=== PATIENT | female | born 1980 | race Caucasian/White ===

== ENCOUNTER 2020-07-24 13:45 | Outpatient (CLI) | payer OTHER, SELFPAY ==
--- NOTE | ~2020-07-24 | CT_ITS ---
EXAMINATION: CT abdomen pelvis w con INDICATION: Lower abdominal pain TECHNIQUE: Computed tomographic images of the abdomen and pelvis were obtained after the administrati on of 100 cc of Omnipaque 350 intravenous contrast. The dose-length product (DLP) was 701.69 mGy-cm. Automated exposure control and iterative reconstruction technique were employed. COMPARISON: None available FINDINGS: Minimal dependent atelectasis is present in the lung bases. The heart size is normal. The l iver is diffusely low in attenuation when compared with the spleen, consistent with hepatic steatosis . The spleen, pancreas, gallbladder, and adrenal glands are normal. There is mild enlargement of the common bile duct which measures up to 9 mm. The left kidney is unremarkable. There is an 7 mm hyperat tenuating lesion of the right mid kidney. No pathologically enlarged abdominal or pelvic lymph nodes are identified. There is no free intraperitoneal gas or evidence of bowel obstruction. The appendix i s normal. IMPRESSION: 1. No CT correlate for the patient's symptoms. 2. Mild enlargement of the common bile duct of unclear significance. Recommend correlation with liver function tests and consider MRCP. 3. Indeterminate right kidney lesion measuring 7 mm. This could be simultaneously evaluated at the ti me of MRCP. If MRCP is deemed unnecessary, follow-up MRI without and with contrast in 6-12 months is recommended. Reviewed, dictated and finalized at location A. B CARE ASSISTANT IMPRESSION: 1. No CT correlate for the patient's symptoms. 2. Mild enlargement of the common bile duct of unclear significance. Recommend correlation with liver function tests and consider MRCP. 3. Indeterminate right kidney lesion measuring 7 mm. This could be simultaneous ly evaluated at the time of MRCP. If MRCP is deemed unnecessary, follow-up MRI without and with contrast in 6-12 months is recommended.
== END 2020-07-24 13:46 | disposition home or self-care (01) ==
PROVIDERS: PCP Nurse Practitioner; Visit Provider Nurse Practitioner
DX: R10.30 Lower abdominal pain, unspecified (principal)
CPT/HCPCS: 74177; Q9967

== ENCOUNTER 2020-08-11 08:13 | Outpatient (CLI) | payer OTHER, SELFPAY ==
--- NOTE | ~2020-08-11 | MR_ITS ---
EXAMINATION: MR MRCP wo/w con/w 3D wo ind DATE: 08/11/2020 10:01 INDICATION: Common bile duct dilation. Right renal lesion. Left-sided abdominal pain, nausea and diar anson. TECHNIQUE: Magnetic resonance imaging (MRI) of the abdomen was performed without and with 17 mL Multi paulina intravenous contrast. Sequences included coronal T2-weighted SS-FSE, coronal T2-weighted FS SS- FSE, coronal T2-weighted FS FIESTA, axial T2-weighted FS FIESTA, axial T2-weighted FIESTA, sagittal T 2-weighted SS-FSE, axial T1-weighted dual-echo FSPGR, axial T2-weighted SS-FSE, axial T1-weighted LAV A, axial T2-weighted STIR FSE. Thick-slab T2-weighted FRFSE-XL images were obtained for magnetic reso nance cholangiopancreatography (MRCP). Rotating maximum intensity projection 3-D reconstructions of t he volumetric data were created by the technologist. Postcontrast sequences included a time course of axial T1-weighted LAVA. COMPARISON: CT dated 07/24/2020 FINDINGS: ABDOMEN MRI: Heart size is normal. No pericardial or pleural effusion. Diffuse hepatic steatosis. Gal lbladder, spleen, pancreas, bilateral adrenal glands and left kidney are normal. Signal intensity gra dient in the dependent aspect of the gallbladder likely representing dependently layering sludge but no discrete low signal intensity gallstones identified. 7 mm T2 hypointense, T1 hyperintense nonenhan cing proteinaceous/hemorrhagic cyst at the lower pole of the right kidney. Simple appearing T2 hyperi ntense nonenhancing 5 mm cyst at the interpolar region of the right kidney. Visualized portion of the bowels are normal. No obstruction. No pathologically enlarged abdominal lymphadenopathy. Mild lumbar spondylosis. Normal bone marrow signal throughout. ABDOMEN MRCP: Normal intrahepatic biliary tree with no ductal dilation. The common bile duct is mildly dilated to 7 mm in maximal diameter which tapers distally without evident obstructing stone or mass. The main turcios creatic duct is normal. IMPRESSION: 1. Nonspecific mild dilation of the common bile duct to 7 mm without intrahepatic biliary ductal dila tion or evident obstructing stone or mass. 2. Right renal lesion of concern corresponds to a nonenhancing proteinaceous/hemorrhagic cyst. Reviewed, dictated and finalized at location B. RITY DIRECTOR IMPRESSION: 1. Nonspecific mild dilation of the common bile duct to 7 mm without intrahepat ic biliary ductal dilation or evident obstructing stone or mass. 2. Right renal lesion of concern corresponds to a nonenhancing proteinaceous/he morrhagic cyst.
[2020-08-11 09:13] LABS: Estimated Glomerular Filt Rate > 60
== END 2020-08-11 08:14 | disposition home or self-care (01) ==
PROVIDERS: PCP Nurse Practitioner
DX: K83.8 Other specified diseases of biliary tract (principal); N28.9 Disorder of kidney and ureter, unspecified; N28.1 Cyst of kidney, acquired; M47.816 Spondylosis without myelopathy or radiculopathy, lumbar region
CPT/HCPCS: 74183; 76376; A9577

== ENCOUNTER 2021-03-11 11:26 | Emergency (ER) | payer OTHER, SELFPAY ==
[2021-03-11 11:38] VITALS: BP 145/87; PULSE 96; RESP 16; TEMP 36.9; O2SAT 100
--- NOTE | 2021-03-11 11:50 | ED.URI ---
HPI - URI/Sore Throat General Chief Complaint: Upper Respiratory Infection Stated Complaint: SORE THROAT/COUGH/HEADACHE/BODY ACHES Time Seen by Provider: 03/11/21 11:51 Source: patient and RN notes reviewed History of Present Illness HPI Narrative: Patient is a 40-year-old female who presents the urgent care with complaints of sore throat, cough, body aches and headache. Patient states symptoms started on Tuesday after she received her Covid vaccine on Tuesday. Patient received the first Materna vaccine. However she did have a positive contact on Tuesday and was just notified yesterday. Patient has been using Excedrin and Profen for her symptoms. States that her kids are also symptomatic. No one has been tested for Covid. No other acute complaints. No acute distress noted. Patient aware of the plan of care. Some parts of this dictation were generated by voice recognition software and may contain typographical and/or grammatical inaccuracies. Related Data Home Medications Medication Instructions Recorded Confirmed amitriptyline 03/11/21 brexpiprazole [Rexulti] mg 03/11/21 cetirizine mg 03/11/21 clonazepam 03/11/21 clonidine HCl 03/11/21 dicyclomine mg 03/11/21 duloxetine mg PO 03/11/21 gabapentin 03/11/21 pantoprazole PO 03/11/21 propranolol 03/11/21 ropinirole mg 03/11/21 topiramate 03/11/21 Allergies Allergy/AdvReac Type Severity Reaction Status Date / Time codeine Allergy Mild Hives / Verified 04/04/19 13:08 Red Face acetaminophen AdvReac Mild Other Unverified 04/04/19 13:08 ZOLPIDEM TARTRATE Allergy Mild Other Uncoded 04/04/19 13:08 Review of Systems Review of Systems: CONSTITUTIONAL: Reports a fever EYES: Denies visual changes, redness, or discharge. ENT: Reports of sore throat and congestion CARDIOVASCULAR: Denies chest pain, palpitations, or edema. RESPIRATORY: Reports of cough without dyspnea GASTROINTESTINAL: Denies abdominal pain, nausea, vomiting, or diarrhea. GENITOURINARY: Denies dysuria or hematuria. SKIN: Denies rash or itching. MUSCULOSKELETAL: Denies back pain, joint pain. Reports of body aches NEUROLOGIC: Denies headache, numbness, or weakness. All other systems reviewed are negative, except as documented in HPI. PMFSH Comments At the time of my signature, I reviewed and agree with the nursing past medical, surgical, social, and family history. There is no relevant family history pertinent to the patient complaint. Exam Narrative: GENERAL: This is a well-nourished, well-developed patient, appears fatigued HEAD: normocephalic, atraumatic. EYES: PERRL. Sclera clear/white. Vision is grossly intact. Moderate bilateral conjunctiva EARS: External ears normal, auditory canals clear and without drainage, TMs normal without perforation. Hearing grossly intact. NOSE: External nose normal with no obvious nasal discharge, nares without redness, no rhinorrhea. THROAT: Mucous membranes moist, posterior pharynx clear. Moderate postnasal drainage NECK: Neck supple CARDIOVASCULAR: Regular rate and rhythm without murmurs, gallops, or rubs. RESPIRATORY: Clear to auscultation. Breath sounds equal bilaterally. No wheezes, rales, or rhonchi. SKIN: warm, intact with no suspicious lesions or rash, good texture and turgor. NEURO: awake, alert, and oriented to person, place and time. There were no obvious focal neurologic abnormalities. EXTREMITIES: No clubbing, cyanosis, or edema. Course Vital Signs Vital signs: Vital Signs Temperature 98.5 F 03/11/21 11:38 Pulse Rate 96 03/11/21 11:38 Respiratory Rate 16 03/11/21 11:38 Blood Pressure 145/87 H 03/11/21 11:38 Pulse Oximetry 100 03/11/21 11:38 Temperature 98.5 F 03/11/21 11:38 Pulse Rate 96 03/11/21 11:38 Respiratory Rate 16 03/11/21 11:38 Blood Pressure 145/87 H 03/11/21 11:38 Pulse Oximetry 100 03/11/21 11:38 Reviewed-patient is informed that they may have pre-hypertension or hypertension based on
== END 2021-03-11 12:05 | disposition home or self-care (01) ==
PROVIDERS: Emergency Provider Nurse Practitioner Family
DX: Z20.822 Contact with and (suspected) exposure to COVID-19 (principal)
CPT/HCPCS: 99211; G0463

== ENCOUNTER → 2021-03-12 02:36 | Outpatient (CLI) | payer OTHER, SELFPAY ==
[2021-03-12 16:55] LABS: SARS-CoV-2 RNA PCR Positive
== END ==
PROVIDERS: Visit Provider Nurse Practitioner Family
DX: U07.1 COVID-19 (principal)
CPT/HCPCS: C9803; U0003; U0005

== ENCOUNTER 2023-08-15 13:21 | Emergency (ER) | payer OTHER, SELFPAY ==
--- NOTE | ~2023-08-15 | XR_ITS ---
EXAMINATION: XR chest 2V DATE: 08/15/2023 13:46 INDICATION: Chest pain TECHNIQUE: PA and lateral views of the chest were obtained. COMPARISON: None FINDINGS: The lungs are clear with no focal airspace opacities, pulmonary edema, pleural effusion or pneumothor ax. The cardiomediastinal silhouette is normal. Visualized bones and soft tissues are unremarkable. IMPRESSION: 1. Normal chest radiograph. Reviewed, dictated and finalized at location A. Y LAUNDERING INVESTIGATOR IMPRESSION: 1. Normal chest radiograph.
--- NOTE | 2023-08-15 13:22 | ECG_ITS ---
Measurements Intervals Blunt Rate: 106 P: 84 NC: 130 QRS: 81 QRSD: 90 T: 60 QT: 316 QTc: 420 Interpretive Statements SINUS TACHYCARDIA POSSIBLE RIGHT ATRIAL ENLARGEMENT POSSIBLE LEFT ATRIAL ENLARGEMENT DELAYED PRECORDIAL R/S TRANSITION BORDERLINE ST ABNORMALITY- INFERIOR LEADS BORDERLINE ECG NO PREVIOUS ECG AVAILABLE FOR COMPARISON Electronically Signed On 08-15-2023 14:19:27 SOFTWARE ENGINEERING ASSOCIATE MANAGER by Josue Grace D.O.
[2023-08-15 13:27] VITALS: BP 152/92; PULSE 115; RESP 20; TEMP 36.2; O2SAT 100
[2023-08-15 13:49] LABS: Basophils Absolute Auto 0.1 K/mm3 (0.0-0.1); Basophils Percent Auto 1.1 % (0.2-1.2); Eosinophils Percent Auto 0.4 % (0-4.4); Hematocrit 47.3 % (37.0-47.0); Hemoglobin 15.5 g/dL (12.0-15.0); Immature Granulocyte Absolute 0.03 K/mm3 (0.00-0.031); Immature Granulocyte Percent A 0.5 % (0-0.5); Lymphocytes Percent Auto 17.9 % (18.3-44.2); Mean Corpuscular HGB Conc 32.8 g/dl (32-36); Mean Corpuscular Hemoglobin 28.8 pg (26-34); Mean Corpuscular Volume 87.9 fl (80-100); Mean Platelet Volume 10.2 fl (7.4-10.4); Monocytes Absolute Auto 0.7 K/mm3 (0.1-0.6); Monocytes Percent Auto 11.8 % (2.6-8.5); Neutrophils Absolute Auto 3.8 K/mm3 (1.3-6.7); Neutrophils Percent Auto 68.3 % (45.5-73.1); Platelet Count Result 237 k/mm3 (150-375); Red Blood Count 5.38 M/mm3 (4.2-5.4); Red Cell Distribution Width 12.7 % (11.5-14.5); White Blood Count 5.6 K/mm3 (4.5-10.0)
[2023-08-15 13:53] LABS: Alanine Aminotransferase 24 U/L (6-35); Albumin Level 4.7 g/dL (3.5-5.1); Alkaline Phosphatase 53 U/L (38-126); Anion Gap 10 mmol/L (8-16); Aspartate Amino Transferase 28 U/L (14-36); Bilirubin,Total 0.4 mg/dL (0.2-1.3); Blood Urea Nitrogen 8 mg/dL (7-17); Calcium 9.7 mg/dL (8.4-10.2); Carbon Dioxide 22 mmol/L (22-30); Chloride 104 mmol/L (98-107); Estimated CRCL calculation 101 ml/min; Estimated Glomerular Filt Rate > 60; Glucose 107 mg/dL (65-110); Lipase 76 U/L (23-300); Sodium 136 mmol/L (137-145)
[2023-08-15 13:57] LABS: INR 0.9; Prothrombin Time 12.9 Seconds (11.1-14.7)
[2023-08-15 13:58] LABS: Partial Thromboplastin Time 28.4 SECONDS (22.3-36.8)
[2023-08-15 14:04] LABS: Troponin I < 0.012 ng/mL (0.000-0.034)
--- NOTE | 2023-08-15 15:13 | ED.GENADULT ---
HPI - General Adult General Chief complaint: Chest Pain <Reema Che October CRUSHER SCREEN REPAIRER - Last Filed: 08/15/23 15:16> Stated complaint: chest pain <Reema Che October CRUSHER SCREEN REPAIRER - Last Filed: 08/15/23 15:16> Time Seen by Provider: 08/15/23 15:13 <Reema Che October CRUSHER SCREEN REPAIRER - Last Filed: 08/15/23 15:16> Focused HPI: 42 y/o female who presents with left sided chest pain that started last night at around 1800 while laying down. Pain has been constant ever since, nothing has made her pain better. Also reports of feeling SOB and dizzy. GENERAL: Well-appearing, well-nourished, and in no acute distress. HEAD: Normocephalic, atraumatic. CHEST: Clear to auscultation. ?No respiratory distress. HEART: Regular rate and rhythm.? NEURO: ?Alert and oriented x3. Patient screened in triage and initial orders placed.? ?Additional care and disposition to be based upon?diagnostic testing and treatment. <Reema Che October, - Last Filed: 08/15/23 15:16> Source: patient <Diego Yepez MD - Last Filed: 08/15/23 16:39> History of Present Illness HPI narrative: Patient is a 42-year-old female who presents ER with chest pain. Ongoing since earlier this morning. Aching and central and left-sided. No radiation. No fevers or chills or sweats. Recently was exposed the fluid had been coughing throughout the week. No hemoptysis. No shortness of breath with walking. No history of heart disease. Denies alleviating factors. <Diego Yepez MD - Last Filed: 08/15/23 16:39> Related Data Home medications: Home Medications Medication Instructions Recorded Confirmed atomoxetine 60 mg capsule 60 mg PO QAM 04/19/23 (Strattera) lumateperone 42 mg capsule 42 mg PO DAILY 04/19/23 (Caplyta) ropinirole 1 mg tablet 1 mg PO QHS 04/19/23 <Reema Che October, CRUSHER SCREEN REPAIRER - Last Filed: 08/15/23 15:16> Allergies/adverse reactions: Allergies Allergy/AdvReac Type Severity Reaction Status Date / Time codeine Allergy Mild Hives / Verified 08/15/23 13:30 Red Face acetaminophen AdvReac Mild Other Verified 08/15/23 13:30 ZOLPIDEM TARTRATE Allergy Mild Other Uncoded 03/18/23 08:41 <Reema Maravilla, CRUSHER SCREEN REPAIRER - Last Filed: 08/15/23 15:16> Review of Systems Review of Systems: All systems reviewed & are unremarkable except as noted in HPI and below <Diego Yepez MD - Last Filed: 08/15/23 16:39> Constitutional: Constitutional: Reports no additional constitutional complaints <Diego Yepez MD - Last Filed: 08/15/23 16:39> ENT: Reports system reviewed and no additional complaints, except as documented <Diego Yepez MD - Last Filed: 08/15/23 16:39> Cardiovascular: Cardiovascular: Reports chest pain, Denies rapid heart rate, Denies radiating jaw, neck or arm pain and Denies slow heart rate <Diego Yepez MD - Last Filed: 08/15/23 16:39> Respiratory: Respiratory: Reports no additional respiratory complaints <Diego Yepez MD - Last Filed: 08/15/23 16:39> Gastrointestinal: Gastrointestinal: Reports no additional gastrointestinal complaints <Diego Yepez MD - Last Filed: 08/15/23 16:39> Musculoskeletal: Musculoskeletal: Reports no additional musculoskeletal complaints <Diego Yepez MD - Last Filed: 08/15/23 16:39> [facility] Past Medical History Medical History: Medical History (Updated 08/15/23 @ 16:35 by Diego Yepze MD) Anxiety GERD (gastroesophageal reflux disease) Hepatic steatosis IBS (irritable bowel syndrome) Lumbar degenerative disc disease <Reema Che October, CRUSHER SCREEN REPAIRER - Last Filed: 08/15/23 15:16> Family History Family History: Family History Father Alcoholism Asthma Mother Depression Thyroid disorder Sibling Asthma <Reema Che October, CRUSHER SCREEN REPAIRER - Last Filed: 08/15/23 15:16> Social History Social History: Social History Smoking status: Former smoker Second hand tobacco smoke
[2023-08-15 15:41] LABS: D Dimer < 0.27 ug/mL (<0.48)
[2023-08-15 15:46] VITALS: PULSE 81; O2SAT 98
[2023-08-15 16:02] VITALS: BP 131/89; PULSE 80; RESP 21; O2SAT 99
[2023-08-15 16:03] VITALS: BP 136/80; PULSE 76; RESP 14; O2SAT 99
[2023-08-15] MEDS: KETOROLAC 30 MG/ML VIAL (*BKC) IM (16:23)
[2023-08-15 16:39] LABS: Troponin I < 0.012 ng/mL (0.000-0.034)
[2023-08-15 16:46] VITALS: BP 136/80; PULSE 92; RESP 18; TEMP 36.7; O2SAT 99
== END 2023-08-15 16:47 | disposition home or self-care (01) ==
PROVIDERS: Nurse Practitioner Family; Emergency Provider Emergency Medicine; PCP Family Medicine
DX: R09.1 Pleurisy (principal); K21.9 Gastro-esophageal reflux disease without esophagitis; K58.9 Irritable bowel syndrome, unspecified; F41.9 Anxiety disorder, unspecified; Z87.891 Personal history of nicotine dependence; R94.31 Abnormal electrocardiogram [ECG] [EKG]; R00.0 Tachycardia, unspecified
CPT/HCPCS: 36415; 71046; 80053; 83690; 84484; 85025; 85380; 85610; 85730; 93005; 96372; 99284; J1885

== ENCOUNTER 2023-09-19 16:22 | Outpatient (CLI) | payer OTHER, SELFPAY ==
[2023-09-19 16:36] LABS: Basophils Absolute Auto 0.1 K/mm3 (0.0-0.1); Basophils Percent Auto 0.9 % (0.2-1.2); Eosinophils Absolute Auto 0.1 K/mm3 (0-0.3); Eosinophils Percent Auto 1.1 % (0-4.4); Hematocrit 42.2 % (37.0-47.0); Immature Granulocyte Absolute 0.05 K/mm3 (0.00-0.031); Immature Granulocyte Percent A 0.5 % (0-0.5); Lymphocytes Absolute Auto 1.63 K/mm3 (0.9-3.2); Lymphocytes Percent Auto 17.3 % (18.3-44.2); Mean Corpuscular HGB Conc 33.2 g/dl (32-36); Mean Corpuscular Hemoglobin 29.2 pg (26-34); Mean Corpuscular Volume 87.9 fl (80-100); Mean Platelet Volume 9.4 fl (7.4-10.4); Monocytes Absolute Auto 0.5 K/mm3 (0.1-0.6); Monocytes Percent Auto 5.2 % (2.6-8.5); Neutrophils Absolute Auto 7.1 K/mm3 (1.3-6.7); Platelet Count Result 257 k/mm3 (150-375); Red Cell Distribution Width 12.6 % (11.5-14.5); White Blood Count 9.4 K/mm3 (4.5-10.0)
== END 2023-09-19 16:23 | disposition home or self-care (01) ==
LOC: ANHLAB 16:23
PROVIDERS: PCP Family Medicine; Visit Provider Obstetrics & Gynecology
DX: N93.9 Abnormal uterine and vaginal bleeding, unspecified (principal)
CPT/HCPCS: 36415; 85025

== ENCOUNTER 2023-10-04 10:12 | Outpatient (CLI) | payer OTHER, SELFPAY ==
--- NOTE | 2023-10-11 10:14 | WPDHOLTEREM ---
Holter/Event Monitor Holter/Event Monitor Date of procedure: 10/04/23 Holter/Event Procedure: 48 Hr Holter Monitor Indications: Palpitations Conclusion: 1. 48 hour holter monitor on 10/04/23. 2. Underlying rhythm is sinus rhythm. HR range 49-141 bpm; average HR 83 bpm. HR at 49 bpm was at 04:24. HR at 141 bpm was at 08:06. 3. There are 92 premature supraventricular complexes and 1 supraventricular couplet. No supraventricular tachycardia. 4. There are 23 premature ventricular complexes. No ventricular tachycardia. 5. No sinoatrial or atrioventricular blocks. No significant pauses greater than 2 seconds. 6. No symptoms available for correlation.
== END 2023-10-04 10:13 | disposition home or self-care (01) ==
LOC: ANHCARD 10:13
PROVIDERS: PCP Family Medicine; Visit Provider Nurse Practitioner Family
DX: I27.20 Pulmonary hypertension, unspecified (principal)
CPT/HCPCS: 93225; 93226

== ENCOUNTER 2023-11-08 11:13 | Emergency (ER) | payer OTHER, SELFPAY ==
--- NOTE | ~2023-11-08 | CT_ITS ---
EXAMINATION: CT abdomen pelvis w con DATE: 11/08/2023 13:48 INDICATION: Gastrointestinal hemorrhage. TECHNIQUE: Computed tomography (CT) of the abdomen and pelvis was performed with 100 mL Omnipaque 350 intravenous contrast. Automated exposure control and iterative reconstruction technique were employe d. The dose-length product was 511.15 mGy-cm. COMPARISON: CT abdomen and pelvis 07/24/2020 FINDINGS: The visualized portions of the lung bases demonstrate mild atelectasis. No pleural effusion . The heart size is normal. No pericardial effusion. The liver, gallbladder, spleen, pancreas, and ad renal glands are normal. The common duct measures 9 mm in diameter, stable from 07/24/2020 and likely not clinically significant given the normal liver function tests. There are cysts in the kidneys dilma uring up to 9 mm on the right. There are no dilated loops of bowel. The appendix is normal. There are no pathologically enlarged lymph nodes. There is no free intraperitoneal fluid. There is mild thorac ic and lumbar spondylosis. IMPRESSION: 1. No etiology for gastrointestinal hemorrhage. Reviewed, dictated and finalized at location A.
[2023-11-08 11:19] VITALS: BP 128/66; PULSE 68; RESP 20; TEMP 36.6; O2SAT 99
--- NOTE | 2023-11-08 12:10 | ED.GIBLEED ---
HPI - GI Bleed General Chief complaint: GI Bleed Stated complaint: bloody stools Time Seen by Provider: 11/08/23 11:58 History of Present Illness HPI Narrative: Patient is a 43-year-old female with history of migraines, IBS, PACs, generalized anxiety disorder, depression, ADHD here today with bright red blood per rectum and abdominal pain. Patient states that about 4 days ago she had a severe migraine with multiple episodes of vomiting overnight. The next morning she woke up and for the last 3 days she has been having bright red blood per rectum, she describes a large amount with clots passing. She does note that she had a prior history of a hemorrhoidectomy about 2-3 years ago at [facility], she had internal and external hemorrhoids at that time. She notes some associated abdominal pain which is in her lower abdomen, cramping in nature and she does have some pain perianally with defecation. She denies feeling short of breath, lightheaded, chest pain, palpitations. No blood thinner use. Her last colonoscopy was in 2019, is due for another scope soon due to family history of colon cancer. She denies fever or chills. She denies any recent travel, denies any recent antibiotic use. She additionally notes for the last 6 months she has been struggling with a rash on her legs. She notes that it 1st started on her left pardo, she did discuss that with her primary care doctor who she states did ?nothing about it and refused to touch it ?. She has been using topical steroids, topical antifungals, with minimal relief of symptoms. She notes she initially had a solitary lesion but now has several lesions throughout her legs. She describes them as pruritic in nature and typically they have flakes on the top of them however she scrubbed them this morning with a skin scribe and currently does not have any skin flaking. Related Data Home Medications Medication Instructions Recorded Confirmed atomoxetine 60 mg capsule 60 mg PO QAM 04/19/23 09/19/23 (Strattera) lumateperone 42 mg capsule 42 mg PO DAILY 04/19/23 09/19/23 (Caplyta) amlodipine 5 mg tablet 5 mg PO DAILY 09/19/23 09/19/23 indomethacin 50 mg capsule 100 mg PO QHS 09/19/23 09/19/23 oxcarbazepine 150 mg tablet 150 mg PO DAILY 09/19/23 09/19/23 (Trileptal) oxcarbazepine 300 mg tablet 300 mg PO BID 09/19/23 09/19/23 (Trileptal) oxybutynin chloride 5 mg tablet 5 mg PO DAILY 09/19/23 09/19/23 pramipexole 0.25 mg tablet 0.25 mg PO QHS 09/19/23 09/19/23 Allergies Allergy/AdvReac Type Severity Reaction Status Date / Time codeine Allergy Mild Hives / Verified 09/19/23 15:40 Red Face acetaminophen AdvReac Mild Other Verified 09/19/23 15:40 ZOLPIDEM TARTRATE Allergy Mild Other Uncoded 09/19/23 15:40 Review of Systems Review of Systems: All systems reviewed & are unremarkable except as noted in HPI and below PMFSH Past Medical History Medical History (Updated 11/08/23 @ 16:50 by Carmen Joiner MD) Anxiety Depression GERD (gastroesophageal reflux disease) Hepatic steatosis IBS (irritable bowel syndrome) Lumbar degenerative disc disease Schizophrenia Screening mammogram, encounter for Surgical History Surgical History Delivery by section x 4 H/O hemorrhoidectomy (10/08/20) excision of thrombosed external hemorrhoid History of hysteroscopy (05/22/20) Hscope D&C, Endometrial Ablation / Laparoscopic Tubal Ligation via electrocautery; Menometrorrhagia, Dysmenorrhea, Undesired fertility S/P nerve repair nerve repair on right hand age 18 Family History Family History Father Alcoholism Asthma Mother Depression Thyroid disorder Carcinoma of colon Breast cancer H/O ovarian cancer Sibling Asthma Social History Social History (Updated 09/19/23 @ 15:45 by TELLY Arguelles) Smoking status: Former smoker Second hand tobacco smoke e
[2023-11-08 13:30] VITALS: BP 133/75; PULSE 62; RESP 16; O2SAT 99
[2023-11-08] MEDS: PANTOPRAZOLE SODIUM IV 40 MG VIAL IV PUSH (13:37)
[2023-11-08 13:40] LABS: Basophils Absolute Auto 0.1 K/mm3 (0.0-0.1); Basophils Percent Auto 0.9 % (0.2-1.2); Eosinophils Absolute Auto 0.3 K/mm3 (0-0.3); Eosinophils Percent Auto 2.6 % (0-4.4); Hematocrit 42.2 % (37.0-47.0); Hemoglobin 14.3 g/dL (12.0-15.0); Immature Granulocyte Absolute 0.05 K/mm3 (0.00-0.031); Immature Granulocyte Percent A 0.5 % (0-0.5); Lymphocytes Absolute Auto 2.24 K/mm3 (0.9-3.2); Lymphocytes Percent Auto 22.2 % (18.3-44.2); Mean Corpuscular HGB Conc 33.9 g/dl (32-36); Mean Corpuscular Hemoglobin 29.7 pg (26-34); Mean Corpuscular Volume 87.6 fl (80-100); Mean Platelet Volume 9.8 fl (7.4-10.4); Monocytes Absolute Auto 0.7 K/mm3 (0.1-0.6); Monocytes Percent Auto 6.4 % (2.6-8.5); Neutrophils Absolute Auto 6.8 K/mm3 (1.3-6.7); Neutrophils Percent Auto 67.4 % (45.5-73.1); Platelet Count Result 265 k/mm3 (150-375); Red Blood Count 4.82 M/mm3 (4.2-5.4); Red Cell Distribution Width 12.3 % (11.5-14.5); White Blood Count 10.1 K/mm3 (4.5-10.0)
[2023-11-08 13:43] LABS: Estimated CRCL calculation 102 ml/min; Estimated Glomerular Filt Rate > 60
[2023-11-08 13:50] LABS: Alanine Aminotransferase 19 U/L (6-35); Albumin Level 4.4 g/dL (3.5-5.1); Alkaline Phosphatase 44 U/L (38-126); Anion Gap 4 mmol/L (4-12); Aspartate Amino Transferase 22 U/L (14-36); Bilirubin,Total 0.4 mg/dL (0.2-1.3); Blood Urea Nitrogen 8 mg/dL (7-17); Calcium 9.5 mg/dL (8.4-10.2); Carbon Dioxide 28 mmol/L (22-30); Chloride 104 mmol/L (98-107); Estimated CRCL calculation 102 ml/min; Estimated Glomerular Filt Rate > 60; Glucose 108 mg/dL (65-110); Lactic Acid Reflex 1.3 mmol/L (0.7-2.0); Lipase 139 U/L (23-300); Potassium 3.6 mmol/L (3.4-5.0); Sodium 136 mmol/L (137-145)
[2023-11-08 13:52] LABS: INR 0.9
[2023-11-08 13:53] LABS: Partial Thromboplastin Time 28.1 Seconds (22.3-36.8)
[2023-11-08 14:00] VITALS: BP 131/69; PULSE 67; RESP 18; O2SAT 99
[2023-11-08 14:30] VITALS: BP 141/78; PULSE 67; RESP 17; O2SAT 98
[2023-11-08 14:59] VITALS: BP 132/74; PULSE 66; RESP 16; O2SAT 99
[2023-11-08 15:25] LABS: Pregnancy On Board Control Positive; Urine Pregnancy Test Negative
[2023-11-08 15:35] LABS: Appearance Urine Clear (Clear); Bacteria Urine None Seen /hpf; Bilirubin Urine Negative (Negative); Blood Urine Trace (Negative); Color Urine Yellow (Yellow); Glucose Urine UA Negative (Negative); Ketones Urine Negative (Negative); Leukocyte Esterase Ur Negative LEU/UL (Negative); Need Manual Microscopic Reviewed; Nitrate Urine Negative (Negative); Non Pathogenic Casts 0-2; Protein Urine Negative (Negative); RBC Urine 0-2 /hpf (0-2); Squamous Epithelial Cell Urine None Seen /hpf (Few); Urobilinogen Urine 0.2 mg/dL (<2.0); WBC Urine 0-5 /hpf (0-3); pH Urine 7.5 (5.0-9.0)
[2023-11-08 15:36] LABS: Add Urine Microscopic? YES
== END 2023-11-08 17:32 | disposition home or self-care (01) ==
PROVIDERS: Emergency Provider Student in an Organized Health Care Education/Training Program; PCP Family Medicine
DX: K60.0 Acute anal fissure (principal); K62.5 Hemorrhage of anus and rectum; K58.9 Irritable bowel syndrome, unspecified; K21.9 Gastro-esophageal reflux disease without esophagitis; F41.9 Anxiety disorder, unspecified; F32.A Depression, unspecified; F20.9 Schizophrenia, unspecified; Z87.891 Personal history of nicotine dependence; Z79.899 Other long term (current) drug therapy
CPT/HCPCS: 36415; 74177; 80053; 81001; 81025; 83605; 83690; 85025; 85610; 85730; 86850; 86900; 86901; 96374; 99284; C9113; Q9967

== ENCOUNTER 2023-12-12 10:01 | Outpatient (CLI) | payer OTHER, SELFPAY ==
[2023-12-12 10:42] LABS: Erythrocyte Sedimentation Rate 12 mm/hr (0-20)
[2023-12-12 14:01] LABS: Rapid Plasma Reagin Non-Reactive (NonReactive)
== END 2023-12-12 10:02 | disposition home or self-care (01) ==
LOC: ANHLAB 10:02
PROVIDERS: PCP Family Medicine; Visit Provider Student in an Organized Health Care Education/Training Program
DX: R21 Rash and other nonspecific skin eruption (principal)
CPT/HCPCS: 36415; 85652; 86592

== ENCOUNTER 2024-01-26 15:34 | Outpatient (CLI) | payer OTHER, SELFPAY ==
--- NOTE | ~2024-01-26 | XR_ITS ---
XR abdomen/kub 1V Ordering provider: Doreen Diehl PA-C History: . R10.9 - Unspecified abdominal pain . Comparison: None. FINDINGS: BOWEL: Nonobstructive bowel gas pattern. ORGANOMEGALY: None. SIGNIFICANT PATHOLOGIC CALCIFICATIONS: None. OTHER: No free air is seen under the diaphragm. IMPRESSION: NO ACUTE ABDOMINAL FINDINGS. Reviewed, dictated and finalized at location A.
== END 2024-01-26 15:35 | disposition home or self-care (01) ==
PROVIDERS: PCP Family Medicine; Visit Provider Physician Assistant Medical
DX: R10.9 Unspecified abdominal pain (principal); R31.9 Hematuria, unspecified
CPT/HCPCS: 74018

== ENCOUNTER 2024-02-06 08:02 | Day surgery (SDC) | payer OTHER, SELFPAY ==
[2023-12-14 12:43] VITALS: BMI 27.6
[2024-01-20 13:01] VITALS: BMI 27.6
--- NOTE | 2024-02-05 21:02 | PM.HPGS ---
History of Present Illness History of Present Illness Consent: Risks, benefits, and alternatives have been discussed and questions answered. Patient agrees to proceed with procedure. Chief complaint: Neoplasm Screening Narrative: Blanquita Chaney is a 43 year old female who is referred for colon cancer screening.Her mother Was diagnosed with colon cancer in her 40s. Review of Systems Review of Systems: All systems reviewed & are unremarkable except as noted in HPI and below PMFSH Past Medical History Medical History Anxiety Depression GERD (gastroesophageal reflux disease) Hepatic steatosis Hypertension IBS (irritable bowel syndrome) Lumbar degenerative disc disease Schizophrenia Screening mammogram, encounter for Surgical History Surgical History Delivery by section x 4 H/O hemorrhoidectomy (10/08/20) excision of thrombosed external hemorrhoid History of hysteroscopy (05/22/20) Hscope D&C, Endometrial Ablation / Laparoscopic Tubal Ligation via electrocautery; Menometrorrhagia, Dysmenorrhea, Undesired fertility S/P nerve repair nerve repair on right hand age 18 Family History Family History Father Alcoholism Asthma Mother Depression Thyroid disorder Carcinoma of colon Breast cancer H/O ovarian cancer Sibling Asthma Social History Social History Smoking packs per day: 2 Smoking cigarettes per day: 40.0 Years smoked: 14 Smoking pack-years: 28.00 Smoking status: Former smoker Tobacco type: cigarettes Second hand tobacco smoke exposure: No Smoking end date: 06/13/15 Alcohol intake: current Alcohol use details: 3 per month Substance use: current Substance use type: marijuana Other substance usage details: 2X daily Do You Feel Safe in your Home?: Yes Lack of Transportation: No Lack of Food: Never True Current Housing: I Have Housing Concerned About Future Housing: No Difficulty Paying Gas/Electric Bills: No Difficulty Paying for Meds: No Currently Unemployed: No Difficulty w/ Childcare or Family Care: No Living arrangements: with family Additional living arrangements comments: Occupation/Education: unemployed Gender identity (if verbalized by the patient): Female Sexual Orientation (if Verbalized by the Patient): Straight or Heterosexual Spiritual care concerns: No Meds Home Medications and Allergies Home Medications Medication Instructions Recorded Confirmed Type lumateperone 42 mg capsule 42 mg PO DAILY 04/19/23 02/06/24 History (Caplyta) indomethacin 50 mg capsule 100 mg PO QHS PRN other 09/19/23 02/06/24 History oxcarbazepine 300 mg tablet 300 mg PO BID 09/19/23 02/06/24 History (Trileptal) oxcarbazepine 150 mg tablet 150 mg PO BID 12/12/23 02/06/24 History (Trileptal) carvedilol 25 mg tablet (Coreg) 25 mg PO Q12H #60 tabs 12/22/23 02/06/24 Rx atogepant 30 mg tablet (Qulipta) 30 mg PO DAILY 01/02/24 02/06/24 History atomoxetine 80 mg capsule 80 mg PO DAILY 01/20/24 02/06/24 History (Strattera) buspirone 10 mg tablet 10 mg PO BID 01/20/24 02/06/24 History cetirizine 10 mg tablet (Zyrtec) 10 mg PO DAILY 01/20/24 02/06/24 History Allergies Allergy/AdvReac Type Severity Reaction Status Date / Time codeine Allergy Mild Hives / Verified 02/06/24 08:47 Red Face zolpidem Allergy Mild Other Verified 02/06/24 08:47 acetaminophen AdvReac Mild Other Verified 02/06/24 08:47 Exam Resp: Auscultation: clear to auscultation bilaterally Cardio: Rate: regular rate Rhythm: regular rhythm GI: GI Palp: Yes Soft to palpation and No Tenderness to palpation present (GI) Assessment and Plan Assessment and plan (1) Colon cancer screening: Code(s): Z12.11 - Encounter for
--- NOTE | 2024-02-06 06:57 | WPDANESEPPF ---
Anes - Initial Pre Proc Eval Procedure: Operation Date: 02/06/24 10:00 Proposed Procedures p Screening Colonoscopy - Jayce Corrales MD Date/Time: 02/06/24 06:57 Surgeon: Jayce Corrales MD Pre Op Diagnosis: Neoplasm Screening Patient Data Age: 43 Gender: F Height: 1.68 m Weight: 77.5 kg Allergies Allergy/AdvReac Type Severity Reaction Status Date / Time codeine Allergy Mild Hives / Verified 02/06/24 08:47 Red Face zolpidem Allergy Mild Other Verified 02/06/24 08:47 acetaminophen AdvReac Mild Other Verified 02/06/24 08:47 Home Medications Medication Instructions Recorded Confirmed Type lumateperone 42 mg capsule 42 mg PO DAILY 04/19/23 02/06/24 History (Caplyta) indomethacin 50 mg capsule 100 mg PO QHS PRN other 09/19/23 02/06/24 History oxcarbazepine 300 mg tablet 300 mg PO BID 09/19/23 02/06/24 History (Trileptal) oxcarbazepine 150 mg tablet 150 mg PO BID 12/12/23 02/06/24 History (Trileptal) carvedilol 25 mg tablet (Coreg) 25 mg PO Q12H #60 tabs 12/22/23 02/06/24 Rx atogepant 30 mg tablet (Qulipta) 30 mg PO DAILY 01/02/24 02/06/24 History atomoxetine 80 mg capsule 80 mg PO DAILY 01/20/24 02/06/24 History (Strattera) buspirone 10 mg tablet 10 mg PO BID 01/20/24 02/06/24 History cetirizine 10 mg tablet (Zyrtec) 10 mg PO DAILY 01/20/24 02/06/24 History Patient hx anesthesia problems: none Family hx anesthesia problems: none Results Review: All pre-operative results and documents have been reviewed as part of the pre-operative evaluation. [facility] [place] Past Medical History Medical History Anxiety Depression GERD (gastroesophageal reflux disease) Hepatic steatosis Hypertension IBS (irritable bowel syndrome) Lumbar degenerative disc disease Schizophrenia Screening mammogram, encounter for Surgical History Surgical History Delivery by section x 4 H/O hemorrhoidectomy (10/08/20) excision of thrombosed external hemorrhoid History of hysteroscopy (05/22/20) Hscope D&C, Endometrial Ablation / Laparoscopic Tubal Ligation via electrocautery; Menometrorrhagia, Dysmenorrhea, Undesired fertility S/P nerve repair nerve repair on right hand age 18 Family History Family History Father Alcoholism Asthma Mother Depression Thyroid disorder Carcinoma of colon Breast cancer H/O ovarian cancer Sibling Asthma Social History Social History Smoking packs per day: 2 Smoking cigarettes per day: 40.0 Years smoked: 14 Smoking pack-years: 28.00 Smoking status: Former smoker Tobacco type: cigarettes Second hand tobacco smoke exposure: No Smoking end date: 06/13/15 Alcohol intake: current Alcohol use details: 3 per month Substance use: current Substance use type: marijuana Other substance usage details: 2X daily Do You Feel Safe in your Home?: Yes Lack of Transportation: No Lack of Food: Never True Current Housing: I Have Housing Concerned About Future Housing: No Difficulty Paying Gas/Electric Bills: No Difficulty Paying for Meds: No Currently Unemployed: No Difficulty w/ Childcare or Family Care: No Living arrangements: with family Additional living arrangements comments: Occupation/Education: unemployed Gender identity (if verbalized by the patient): Female Sexual Orientation (if Verbalized by the Patient): Straight or Heterosexual Spiritual care concerns: No Anes - Eval Final PreProcedure Day of Procedure 02/06/24 06:57 Patient weight: overweight Heart: regular rate and rhythm Lungs: clear to auscultation Airway: Mallampati scale class II Neurological: alert and oriented Last oral intake: >/= 8 hours ASA classification: III Emergent: no Anesthetic plan: proceed Anesthesia type
[2024-02-06 08:52] VITALS: BP 120/76; PULSE 67; RESP 18; TEMP 36.9; O2SAT 98; BMI 28.3
[2024-02-06] MEDS: LACTATED RINGERS 1,000 ML 150 ML IV CONT (09:05)
[2024-02-06 09:48] VITALS: BP 112/84; PULSE 74; RESP 18; O2SAT 100
[2024-02-06 09:58] VITALS: BP 115/69; PULSE 70; RESP 16; O2SAT 98
[2024-02-06 10:08] VITALS: BP 129/77; PULSE 70; RESP 16; O2SAT 100
--- NOTE | 2024-02-06 11:14 | WPDANESPN ---
Anes - Prog Note Post-Op Date/Time: 02/06/24 11:14 Cardiovascular status: normal Respiratory status: normal Airway patency: baseline Mental status: baseline Post-Op hydration status: normal Vital Signs: Last Vital Signs Temp 36.9 C 02/06/24 08:52 Pulse 70 02/06/24 10:08 Resp 16 02/06/24 10:08 BP 129/77 02/06/24 10:08 Pulse Ox 100 02/06/24 10:08 O2 Del Method Room Air 02/06/24 10:08 Pain Score (VAS): 0 I/O: Intake & Output 02/05/24 02/06/24 02/06/24 23:59 07:59 15:59 Intake Total 400 Balance 400 Post-procedural complaints: none Patient Feedback: Patient satisfied with anesthetic care. Other Findings: Patient vital signs back to baseline. Patient denies nausea and vomiting. Patient's pain under control. Patient OK for discharge.
== END 2024-02-06 10:15 | disposition home or self-care (01) ==
PROVIDERS: PCP Family Medicine; Visit Provider Internal Medicine Gastroenterology
PROC: 0DJD8ZZ Inspection of Lower Intestinal Tract, Via Natural or Artificial Opening Endoscopic (ICD-10-PCS; CPT 45378; principal; 2024-02-06 10:00)
DX: Z12.11 Encounter for screening for malignant neoplasm of colon (principal); Z80.0 Family history of malignant neoplasm of digestive organs; K64.8 Other hemorrhoids
CPT/HCPCS: 45378

== ENCOUNTER 2024-02-23 08:24 | Outpatient (CLI) | payer OTHER, SELFPAY ==
--- NOTE | 2024-02-23 08:40 | ECHO_ITS ---
Patient Info Name: Blanquita Chaney Age: 43 years : 1980 Gender: Female Ht: 67 in Wt: 170 lbs BSA: 1.92 m2 HR: 75 bpm BP: 138 / 80 mmHg Heart Rhythm: Sinus Rhythm Technical Quality: Good Exam Date: 02/23/2024 9:01 AM Exam Location: Echo Lab Patient Status: Outpatient Admit Date: 02/23/2024 Staff Ordering Physician: Josue Grace DO Power Line Installer And Repairer: Leslye Torres RDCS Attending Provider: Josue Grace DO Referring Physician: Sanjay MATOS; Exam Type: CA echo doppler color flow Study Info Indications - chest pain Complete two-dimensional, color flow and Doppler transthoracic echocardiogram is performed. Summary 1. Complete two-dimensional, color flow and Doppler transthoracic echocardiogram is performed. 2. Left ventricular chamber dimension is normal. 3. Left ventricular systolic function is normal, estimated at 60-65%. 4. The left ventricular diastolic function is grade I diastolic dysfunction. 5. E/e' 6 is not elevated. 6. There is mild aortic valve sclerosis. 7. There is mild aortic valve regurgitation. 8. There is mild mitral valve regurgitation. 9. No pulmonary hypertension, estimated pulmonary arterial systolic pressure is 20 mmHg. 10. There is trace pulmonic regurgitation. Left Ventricle E/e' 6 is not elevated. Left ventricular chamber dimension is normal. Left ventricular systolic function is normal, estimated at 60-65%. The left ventricular diastolic function is grade I diastolic dysfunction. Right Ventricle Right ventricular systolic function is normal and with normal TAPSE 2.9 cm. Right ventricular chamber dimension is normal. Left Atria Left atrial chamber dimension is normal. Right Atria Right atrial chamber dimension is normal. Aortic Valve The aortic valve is trileaflet. There is mild aortic valve sclerosis. There is no aortic valve stenosis. There is mild aortic valve regurgitation. Pulmonic Valve There is trace pulmonic regurgitation. Mitral Valve There is no mitral valve stenosis. There is mild mitral valve regurgitation. Tricuspid Valve There is no tricuspid valve regurgitation. No pulmonary hypertension, estimated pulmonary arterial systolic pressure is 20 mmHg. Pericardium/Pleural There is no pericardial effusion. Inferior Vena Cava Normal inferior vena cava with >50% collapse upon inspiration consistent with normal right atrial pressure, 5 mmHg. Aorta The aortic root size at the sinus of Valsalva is normal. Left Ventricular Outflow Tract Name Value Normal LVOT 2D LVOT Diameter 2.0 cm LVOT Doppler LVOT Peak Gradient 4 mmHg LVOT Mean Gradient 2 mmHg LVOT VTI 24 cm LVOT VTI/AV VTI Ratio 0.9 LVOT Stroke Volume 78 ml LVOT CO 5.5 l/min LVOT CI 2.8 l/min/m2 Pulmonic Valve Name Value Normal PV Doppler
--- NOTE | 2024-02-23 08:42 | EST_ITS ---
Patient Info Name: Blanquita Chaney Age: 43 years : 1980 Gender: Female Exam Date: 02/23/2024 9:32 AM Exam Location: Echo Lab Patient Status: Outpatient Admit Date: 02/23/2024 Staff Ordering Physician: Josue Grace DO Attending Provider: Josue Grace DO Exercise Technologist: Kimberly Hayes RDCS Exercise Physician: Josue Grace DO Exam Type: CA stress test treadmill Study Info Indications R07.9 - Chest pain, unspecified A treadmill exercise stress test was performed. Summary 1. 1. Negative Gregory exercise stress test for ischemic ST changes by ECG criteria. 2. 2. Reduced functional capacity, achieving 8.6 METs of workload. 3. 3. Baseline hypertension with hypertensive response to exercise. 4. 4. Appropriate HR response to exercise. 5. 5. Appropriate HR recovery at 1 minute post exercise. 6. 6. No imaging with stress testing. 7. 7. Patient informed of the above results. Protocol: Gregory Stress ECG Details Stage: REST Duration (min): 1 min : 1 sec Speed (mph): 0.0 Grade (%): 0 HR (bpm): 74 SBP (mmHg): 142 DBP (mmHg): 82 METS: --- Stage: REST Duration (min): 12 min : 33 sec Speed (mph): 0.0 Grade (%): 0 HR (bpm): 97 SBP (mmHg): 142 DBP (mmHg): 82 METS: --- Stage: STAGE 1 Duration (min): 1 min : 0 sec Speed (mph): 1.7 Grade (%): 10 HR (bpm): 108 SBP (mmHg): 142 DBP (mmHg): 82 METS: --- Stage: STAGE 1 Duration (min): 2 min : 0 sec Speed (mph): 1.7 Grade (%): 10 HR (bpm): 122 SBP (mmHg): 142 DBP (mmHg): 82 METS: --- Stage: STAGE 1 Duration (min): 3 min : 0 sec Speed (mph): 1.7 Grade (%): 10 HR (bpm): 115 SBP (mmHg): 160 DBP (mmHg): 79 METS: --- Stage: STAGE 2 Duration (min): 1 min : 0 sec Speed (mph): 2.5 Grade (%): 12 HR (bpm): 123 SBP (mmHg): 160 DBP (mmHg): 79 METS: --- Stage: STAGE 2 Duration (min): 2 min : 0 sec Speed (mph): 2.5 Grade (%): 12 HR (bpm): 118 SBP (mmHg): 167 DBP (mmHg): 75 METS: --- Stage: STAGE 2 Duration (min): 3 min : 0 sec Speed (mph): 2.5 Grade (%): 12 HR (bpm): 139 SBP (mmHg): 167 DBP (mmHg): 75 METS: --- Stage: STAGE 3 Duration (min): 0 min : 58 sec Speed (mph): 3.4 Grade (%): 14 HR (bpm): 152 SBP (mmHg): 207 DBP (mmHg): 77 METS: --- Stage: RECOVERY Duration (min): 0 min : 1 sec Speed (mph): 1.5 Grade (%): 0 HR (bpm): 152 SBP (mmHg): 207 DBP (mmHg): 77 METS: --- Stage: RECOVERY Duration (min): 1 min : 1 sec Speed (mph): 0.0 Grade (%): 0 HR (bpm): 98 SBP (mmHg): 207 DBP (mmHg): 77 METS: --- Stage: RECOVERY Duration (min): 2 min : 1 sec Speed (mph): 0.0 Grade (%): 0 HR (bpm): 68 SBP (mmHg): 225 DBP (mmHg): 67 METS: --- Stage: RECOVERY Duration (min): 3 min : 1 sec Speed (mph): 0.0 Grade (%): 0 HR (bpm): 72 SBP (mmHg): 225 DBP (mmHg): 67 METS: --- Stage:
== END 2024-02-23 08:25 | disposition home or self-care (01) ==
LOC: ANHCARD 08:26
PROVIDERS: PCP Family Medicine; Visit Provider Internal Medicine Cardiovascular Disease
DX: R06.09 Other forms of dyspnea (principal); I35.8 Other nonrheumatic aortic valve disorders; I35.1 Nonrheumatic aortic (valve) insufficiency; I34.0 Nonrheumatic mitral (valve) insufficiency
CPT/HCPCS: 93017; 93306

== ENCOUNTER 2024-06-04 13:09 | Outpatient (CLI) | payer OTHER, SELFPAY ==
[2024-06-04 13:34] LABS: Cholesterol 231 mg/dL (0-200); HDL Direct 46 mg/dL; Triglycerides 150 mg/dL (<150)
[2024-06-04 13:45] LABS: LDL Cholesterol Direct 153 mg/dL
== END 2024-06-04 13:10 | disposition home or self-care (01) ==
LOC: ANHLAB 13:10
PROVIDERS: PCP Family Medicine; Visit Provider Internal Medicine Cardiovascular Disease
DX: I10 Essential (primary) hypertension (principal)
CPT/HCPCS: 36415; 80061

== ENCOUNTER 2024-07-17 06:58 | Day surgery (SDC) | payer OTHER, SELFPAY ==
[2024-06-26 10:18] VITALS: BMI 28.3
--- NOTE | ~2024-07-17 | XR_ITS ---
INTRAOPERATIVE FLUOROSCOPY: CLINICAL HISTORY: 43 years old Female; RIGHTWARD C6-7 INTERLAMINAR EPIDURAL STEROID INJ PROCEDURE COMMENTS: Limited intraoperative fluoroscopy of the cervical spine was performed. CUMULATIVE DOSE: 1.3 mGy FLUOROSCOPY TIME: 11.3 seconds FINDINGS/IMPRESSION: Please refer to operative note for further details. Reviewed, dictated and finalized at location A. RMAN
--- NOTE | 2024-07-17 05:54 | PM.HPGS ---
History of Present Illness History of Present Illness Consent: Risks, benefits, and alternatives have been discussed and questions answered. Patient agrees to proceed with procedure. Chief complaint: cervical radiculopathy, cervical stenosis Narrative: Blanquita Chaney is a 43 year old female with chronic, recalcitrant and disabling neck and upper extremity pain secondary to cervical radiculopathy with failure to respond to aggressive conservative measures including PT, oral and topical analgesics, opioid and nonopioid analgesics, rest, time and activity/behavioral modification over the past 6-12 months who presents for rightward cervical interlaminar epidural steroid injection under fluoroscopic guidance and with contrast control. Review of Systems Review of Systems: Patient denies any new infectious, allergic, cardiopulmonary, neurologic or constitutional symptoms or changes in activity tolerance or exercise capacity including new or progressive SOB/KAMINSKI, peripheral edema, productive cough, dysuria, nausea/vomiting, diarrhea, weight change, fevers/chills/night sweats, new or progressive neurologic deficit, cognitive or mood changes since last seen, except as documented in the HPI. All systems reviewed & are unremarkable except as noted in HPI and below PMFSH Past Medical History Medical History (Updated 07/17/24 @ 06:04 by Mendez Barnes MD) Hypertension Screening mammogram, encounter for Schizophrenia Depression Lumbar degenerative disc disease IBS (irritable bowel syndrome) GERD (gastroesophageal reflux disease) Anxiety Hepatic steatosis Surgical History Surgical History S/P nerve repair nerve repair on right hand age 18 Delivery by section x 4 History of hysteroscopy (05/22/20) Hscope D&C, Endometrial Ablation / Laparoscopic Tubal Ligation via electrocautery; Menometrorrhagia, Dysmenorrhea, Undesired fertility H/O hemorrhoidectomy (10/08/20) excision of thrombosed external hemorrhoid Family History Family History Father Alcoholism Asthma Mother Depression Thyroid disorder Carcinoma of colon Breast cancer H/O ovarian cancer Sibling Asthma Social History Social History Smoking packs per day: 2 Smoking cigarettes per day: 40.0 Years smoked: 14 Smoking pack-years: 28.00 Smoking status: Former smoker Tobacco type: cigarettes Second hand tobacco smoke exposure: No Smoking end date: 06/13/15 Alcohol intake: current Alcohol use details: 3 per month Substance use: current Substance use type: marijuana Other substance usage details: 2X daily Do You Feel Safe in your Home?: Yes Lack of Transportation: No Lack of Food: Often True Current Housing: I Have Housing Concerned About Future Housing: No Difficulty Paying Gas/Electric Bills: No Difficulty Paying for Meds: No Currently Unemployed: No Education: High School Diploma/GED Difficulty w/ Childcare or Family Care: No Living arrangements: with family Additional living arrangements comments: Occupation/Education: unemployed Gender identity (if verbalized by the patient): Female Sexual Orientation (if Verbalized by the Patient): Straight or Heterosexual Spiritual care concerns: No Meds Home Medications and Allergies Home Medications ?Medication ?Instructions ?Recorded ?Confirmed ?Type lumateperone 42 mg capsule 42 mg PO DAILY 04/19/23 06/26/24 History (Caplyta) indomethacin 50 mg capsule 100 mg PO QHS PRN other 09/19/23 06/26/24 History atogepant 30 mg tablet (Qulipta) 30 mg PO DAILY 01/02/24 06/26/24 History atomoxetine 80 mg capsule 80 mg PO DAILY 01/20/24 06/26/24 History (Strattera) cetirizine 10 mg tablet (Zyrtec) 10 mg PO DAILY 01/20/24 06/26/24 History losartan 50 mg tablet 50 mg PO DAILY #30 tabs 04/03/24 06/26/24 Rx norethindrone acetate 1 mg-ethinyl 1 tablet PO DAILY #84 tabs 05/22/24 06/26/24 Rx estradiol 20 mcg tablet (Loestrin) oxcarbazepine 300 mg tablet 600 mg PO BID 05/22/24 06/26/24 History (Trileptal) buspirone 15 mg tablet 15 mg PO BID 06/26/24 06/26/24 History metoprolol tartrate 50 mg tablet 50 mg PO BID 06/26/24 06/26/24 History Allergies Allergy/AdvReac Type Severity Reaction Status Date / Time codeine Allergy Mild Hives / Verified 06/26/24 10:15 Red Face zolpidem Allergy Mild Other Verified 06/26/24 10:15 acetaminophen AdvReac Mild Other Verified 06/26/24 10:15 Exam Narrative: The patient's physical exam is essentially unchanged from prior examination on 06/04/2024. Specifically, patient demonstrates normal lung capacity, tidal volume and respiratory rate without wheezes, crackles, rales or rubs. Heart rate and rhythm are regular without murmurs, gallops or rubs. No JVD. Pulses 2+ globally without increasing peripheral edema. AAOx3 with no evidence of confusion, intoxication or altered mental state, NC/AT without acute distress or altered consciousness. Speech, cognition, mood, insight and judgment at baseline and within normal limits. Assessment and Plan Assessment and plan (1) Spinal stenosis of cervical region with radiculopathy: Code(s): M48.02 - Spinal stenosis, cervical region; M54.12 - Radiculopathy, cervical region Status: Acute Assessment and Plan: proceed as planned with rightward C6-7 interlaminar epidural steroid injection under fluoroscopic guidance with contrast control (2) Cervicalgia: Code(s): M54.2 - Cervicalgia Status: Acute (3) Chronic pain: Code(s): G89.29 - Other chronic pain Status: Acute
--- NOTE | 2024-07-17 06:05 | WPDHPUPDATE1 ---
History and Physical Update Update Date/Time: 07/17/24 06:05 History and Physical has been reviewed, including an updated exam of the patient. There are NO changes in the patient's condition. Risks, benefits, and alternatives have been discussed and questions answered. Patient agrees to proceed with procedure.
--- NOTE | 2024-07-17 06:07 | P.OP_ITS ---
Procedure Note - Detailed Date of Procedure 07/17/24 Pre-op Diagnosis cervical radiculopathy, cervical stenosis Post-op Diagnosis Same Procedure Performed Rightward Cervical Interlaminar Epidural Steroid Injection at C6-7 under Fluoroscopic Guidance and with Contrast Control. Surgeon Mendez Barnes MD Anesthesia Local Description of Procedure INFORMED CONSENT: Risks, benefits and alternatives to the procedure were discussed in detail with the patient who expressed explicit understanding and co nsent to proceed. Patient was informed verbally and in written form regarding the risks associated with the procedure including the low risk of serious infection, bleeding/bruising, allergic reaction, nerve or organ injury, paralysis, procedural site pain or discomfort, worsening pain and/or mobility, failure to treat and/or disfigurement. The patient expressed explicit understanding and consent to proceed. All materials required for the procedure were available prior to procedure start. Site and side was marked prior to procedure and confirmed in the presence of the patient. PROCEDURE IN DETAIL: The patient was brought to the procedural suite and placed in the prone position. Patient's head was positioned and stabilized with a ProneView pillow or equivalent. Patient was made comfortable with use of pillows under the chest, hips and ankles. Skin overlying the injection site was prepared broadly with ChloraPrep applicator and draped in a sterile manner. Aseptic technique was employed throughout. The endplates of the vertebral body at the site of interest were aligned in the AP view. Slight caudad tilt and ipsilateral oblique angulation was utilized to optimize visualization of the targeted posterior intervertebral foramen at C6-7. Local anesthesia was established by infiltration with approximately 5 mL of 2% lidocaine via a 1-1/2 inch 27-gauge needle. A 20-gauge 4-inch Tuohy epidural needle was advanced intermittently until appropriate loss of resistance to air was identified via plastic loss of resistance syringe. Lateral view was used to confirm the appropriate positioning of the needle tip within the posterior epidural space. In the AP view, 2.0 mL of Omnipaque 300 contrast medium was injected after negative aspiration for CSF, blood or other bodily fluid, showing appropriate epidural spread of contrast without evidence of intravascular or intrathecal placement. After negative repeat aspiration for CSF, blood or other bodily fluid, A 4 mL solution containing 6 mg of betamethasone in sterile PF Normal Saline was injected after negative repeat aspiration. Appropriate spread of the injectate was confirmed with washout of previously injected contrast. No parasthesias were elicited. Needle was removed completely intact without difficulty. Images were saved and documented in the patient chart. Patient's skin was cleansed and sterile bandage applied. The patient tolerated the procedure well. The patient was transported to the recovery area in stable condition where they were observed for an appropriate amount of time prior to discharge, without evidence of complication. The patient was instructed to avoid excessive activity for the next 48 hours, including overhead work, reaching or extended device/computer usage. Showers on ly for 48 hours. They were instructed not to drive or operate heavy machinery for 24 hours. They are to monitor for severe headaches, fevers, chills, night sweats, erythema/swelling at the site or any other signs of infection, bleeding/bruising, bowel or bladder changes as well as new pain, weakness or numbness in the upper or lower extremity. Should they notice these changes, they are instructed to call our office immediately or report directly to the nearest Emergency Department if no answer or if after posted office hours. CONTRAST WASTED: 28mL Omnipaque 300. Complications No immediate complications Condition Stable Disposition Same day [facility] Billing Surgery - Charge Forward: Surgery Billing
--- OUTSIDE RECORDS SUMMARY | 2024-07-17 07:44 | XMS_ITS | Clinical Summary ---
Author Organization [facility] Address [address] [place] [address]. [place], [place] [id number] [place] [id number] Care Team Providers Care [employer] Rep Name Role Phone DanielaGrahamDevante Joselyn DO Primary Care Provider [phone] Allergies Active Allergy Reactions Criticality Noted Date Comments Zolpidem Hallucinations 12/06/2020 Codeine Vomiting 12/06/2020 Immunizations Name Administration Dates Next Due MODERNA COVID-19 (12+) MRNA, LNP-S, PF, 100 MCG/ 0.5 ML DOSE 02/18/2021 Social History Tobacco Use Types Packs/Day Years Used Date Smoking Tobacco: Former Smokeless Tobacco: Never Alcohol Use Standard Drinks/Week Comments Never 0 (1 standard drink = 0.6 oz pur e alcohol) AUDIT-C Answer Date Recorded Q1: How often do you have a drink containing alc ohol? Never 12/06/2020 Average Number of Drinks Not on file 021 Frequency of Binge Drinking Not on file 11/12 Comments No Sex and Gender Information Value Date Recorded Sex Assigned at Not on file Legal Sex Female 5:02 PM CDT Gender Identity Not on file Sexual Orientation Not on file Last Filed Vital Signs Vital Sign Reading Time Taken Comments Blood Pressure 148/80 12/06/2020 1:46 PM CDT Pulse 70 12/06/2020 1:46 PM CDT Temperature 36.6 ??C (97.9 ??F) 12/06/2020 10:51 AM C DT Respiratory Rate 16 12/06/2020 1:46 PM CDT Oxygen Saturation 100% 12/06/2020 1:46 PM CDT Inhaled Oxygen Concentration - - Weight 83 kg (183 lb) 12/06/2020 10:51 AM CDT Height 170.2 cm (5' 7 ) 12/06/2020 10:51 AM CDT Body Mass Index 28.66 12/06/2020 10:51 AM CDT Plan of Treatment Health Maintenance Due Date Last Done Comments Cervical Cancer Screening Pa p Smear (Age 30 to 64) Every 3 Years 1982 Annual Physical 1985 Hepatitis C 2000 Cervical Cancer Screening Pa p with HPV Testing (Age 30 to 64) Every 5 Years 2012 Cervical Cancer Screening wi th HPV 2012 Mammogram Screening 2022 DTaP, Tdap and Td Vaccines ( 2 - Td or Tdap) 10/02/2023 10/01/2013 COVID-19 Vaccine ( - 2023-2 5 season) 2024 04/06/2021, 03/09/2021, 02/18/2021 Influenza Adult (#1) 2024 03/09/2021, 02/19/2021, 03/19/2020 Pneumococcal Vaccine: Pediatrics (0 to 5 Years) and At-Risk Patients (6 to 64 Years) Aged Out 10/31/2013 No longer eligible b ased on patient's age to complete this topic Hepatitis B Vaccines Completed 01/30/2015, 09/30/2014, 08/30/2014 HPV Vaccines Aged Out No longer eligi ble based on patient's age to complete this topic Meningococcal B Vaccine Aged Out No l onger eligible based on patient's age to complete this topic Meningococcal Vaccine Aged Out No alyssa jeff eligible based on patient's age to complete this topic RSV Immunizations Under 20 Months Aged Out No longer eligible b ased on patient's age to complete this topic Insurance [place] Care Teams [employer] Rep Relationship Specialty Start Date End Date Devante Suarez DO [address] [phone] PCP - General FAMILY PRACTICE 12/06/20
--- OUTSIDE RECORDS SUMMARY | 2024-07-17 07:44 | XMS_ITS | Referral Summary ---
Author Organization [facility] Address [address] [place] [address] Care Team Providers Care Wood Gang Sawyer Name Role Phone Mendez Pantoja MD Unavailable [phone] Nyasia Arauz MD Primary Care Provider [phone] Encounters Date Type Department Care Team Description 05/28/2024 3:30 PM [employer]ASTE MINIM[employer]ATION TECHNICIAN Office Visit [facility] [address] [place] [address] [place] [phone] Ana Bennett NP Intractable chronic migraine without aura and without status migrainosus (Primary Dx); Headache associated with sexual activity; Neck pain 05/01/2024 1:30 PM WASTE MINIMIZATION TECHNICIAN Procedure visit [facility] [address] [place] [phone] Ana Bennett NP Intractable chronic migraine without aura and without status migrainosus from Last 3 Months Allergies Active Allergy Reactions Criticality Noted Date Comments Codeine Nausea only,Nausea A nd Vomiting,Stomach upset,Vomiting Low 08/26/2011 Stomach/GI Upset Hydrocodone Nausea And Vomiting 10/30/2013 Sumatriptan Other (See comments) Low 01/13/2021 weakness Topiramate Blisters High 01/13/2021 Zolpidem Hallucinations,Other (See comments) Medium 08/26/2011 Confusion Medications fluticasone propionate (FLONASE) 50 mcg/actuation nasal spray 11/27/19 21 Active gabapentin (NEURONTIN) 300 mg capsule Take 1 capsule (300 mg total) by mouth 2 (two) times a day 300 mg in the morning and 600 mg at night 01/13/20 21 Active rOPINIRole (REQUIP) 0.5 mg tablet Take 2 tablets (1 mg total) by mouth nightly 04/03/20 21 Active Rexulti 3 mg tablet Take 1 tablet (3 mg total) by mouth daily 05/14/20 21 Active clonazePAM (KlonoPIN) 0.5 mg tablet Take 1 tablet (0.5 mg total) by mouth 2 (two) times a day Active oxyCODONE-acetamin ophen (PERCOCET) 5-325 mg per tablet Take 1 tablet by mouth every 6 (six) hours as needed 10/20/19 23 Active escitalopram (LEXAPRO) 10 mg tablet 12/07/19 23 Active Rexulti 4 mg tablet 12/07/19 23 Active ondansetron (ZOFRAN) 4 mg tablet Take 1 tablet (4 mg total) by mouth every 8 (eight) hours as needed for nausea or vomiting 20 tablet 1 01/08/20 23 Active lumateperone (Caplyta) 42 mg capsule 02/16/20 23 Active OneTouch Verio test strips strip 02/16/20 23 Active OneTouch Verio Flex meter [facility] 01/05/20 23 Active OneTouch Delica Plus Lancet 33 gauge [facility] 01/05/20 23 Active lithium 300 mg tablet/capsule Activ e Strattera 40 mg capsule 60 mg 03/10/20 23 Active rimegepant (NURTEC ODT) tablet,disintegrat ing Take 1 tablet (75 mg total) by mouth daily as needed (migraine) 8 tablet 5 07/20/19 24 Active ondansetron ODT (ZOFRAN-ODT) 8 mg disintegrating tablet Take 1 tablet (8 mg total) by mouth every 12 (twelve) hours as needed for nausea or vomiting 20 tablet 1 07/20/19 24 Active rimegepant (Nurtec ODT) tablet,disintegrat ing Take 1 tablet (75 mg total) by mouth daily 4 tablet 07/28/19 24 Active naproxen (NAPROSYN) 375 mg tablet Take 1 tablet (375 mg total) by mouth 2 (two) times a day 08/15/19 24 Active OXcarbazepine (TRILEPTAL) 150 mg tablet 08/22/19 24 Active OXcarbazepine (TRILEPTAL) 300 mg tablet 08/01/19 24 Active traZODone (DESYREL) 50 mg tablet 07/25/19 24 Active Strattera 80 mg capsule 06/21/19 24 Active atomoxetine (STRATTERA) 80 mg capsule 08/22/19 24 Active progesterone (PROMETRIUM) 200 mg capsule TAKE 1 CAPSULE BY MOUTH EVERY DAY AT BEDTIME FOR 90 DAYS 10/06/19 24 Active amLODIPine (NORVASC) 10 mg tablet 09/29/19 24 Active solifenacin (VESIcare) 5 mg tablet Take 1 tablet (5 mg total) by mouth daily Active carvediloL (COREG) 6.25 mg tablet Take 1 tablet (6.25 mg total) by mouth 2 (two) times a day with meals Active ketoconazole (NIZORAL) 2 % cream APPLY TOPICALLY TO THE AFFECTED AREA(S) TWICE DAILY FOR 4 WEEKS OR 1 WEEK AFTER LESIONS HAVE HEALED 11/09/19 24 Active pramipexole (MIRAPEX) 0.125 mg tablet 10/17/19 24 Active amLODIPine (NORVASC) 5 mg tablet 10/17/19 24 Active Strattera 60 mg capsule 09/19/19 24 Active hydrOXYzine (ATARAX) 25 mg tablet 11/22/19 24 Active indomethacin (INDOCIN) 50 mg capsuleIndications :Headache associated with sexual activity Take 1 capsule (50 mg total) by mouth daily 30 capsule 1 03/29/20 24 Active Additional Information Patient not taking.Reported on 05/28/2024 busPIRone (BUSPAR) 15 mg tablet 05/28/20 24 Active losartan (COZAAR) 50 mg tablet 05/27/20 24 Active metoprolol tartrate (LOPRESSOR) 50 mg immediate release tablet Take 1 tablet (50 mg total) by mouth 2 (two) times a day 05/13/20 24 Active Microgestin 07/02, 21, 1-20 mg-mcg per tablet TAKE 1 TABLET BY MOUTH ONCE DAILY IN CONTINUOUS MANNER SKIPPING PLACEBO PILLS 05/22/20 Active predniSONE (DELTASONE) 20 mg tablet TAKE 1 TABLET BY MOUTH ONCE DAILY FOR 5 DAYS 05/02/20 24 Active atogepant 30 mg tablet Take 30 mg by mouth daily 30 tablet 5 05/29/20 24 Active Active Problems Problem Noted Date Diagnosed Date Headache associated with sexual activity 024 Neck pain 12/07/2023 Leukocytosis 02/21/2023 Primary insomnia 07/22/2022 Assessment & Plan (07/22/2022 1:41 PM WASTE MINIMIZATION TECHNICIAN): The problem of recurrent insomnia is discussed. Avoidance of caffeine sources is strongly encouraged. Sleep restriction and Sleep hygiene issues are reviewed. The use of sedative hypnotics for temporary relief was discussed and the addictive nature of these drugs. The patient has tried Ambien, Lunesta, and Seroquel in the past without success. The patient was recently discontinued on Valium. The patient was instructed that gold standard of treating insomnia is cognitive behavior therapy. Cognitive behavior therapy was reviewed in depth. I have provided the patient 2 pamphlets on sleeping better insomnia as written by the [employer] [employer]. I have also ordered a PSG Intractable chronic migraine without aura and without status migrainosus 04/29/2022 Hypersomnia 01/12/2022 Assessment & Plan (07/22/2022 1:39 PM WASTE MINIMIZATION TECHNICIAN): Sleep hygiene was discussed Assessment & Plan (01/12/2022 2:16 PM CDT): The patient is going to talk with her primary care physician regarding lab work. Snoring 11/17/2021 Assessment & Plan (07/22/2022 1:39 PM WASTE MINIMIZATION TECHNICIAN): Due to worsening symptoms of the snoring, hypersomnia, and insomnia, I have ordered an in-home nocturnal polysomnogram. Procedure detailed in depth. Patient is agreeable Assessment & Plan (01/12/2022 2:15 PM CDT): I did recommend that the patient lose weight if possible snore guard. Patient verbalized understanding. Assessment & Plan (11/17/2021 11:31 AM CDT): The patient presents with snoring, witnessed apneas and excessive daytime hypersomnia. I have recommended proceeding with a nocturnal polysomnogram with a split night protocol if necessary and no MSLT. She will follow-up with me in 3 months. Overweight 10/14/2021 PCOS (polycystic ovarian syndrome) 10/14/2021 Intractable migraine with aura without status mi grainosus 01/13/2021 Assessment & Plan (01/13/2021 11:50 AM CDT): Patient describes a lifelong history of episodic headaches with historical description consistent with migraine with aura. She has noticed over the last 4 months that the frequency of headaches has increased and is now occurring the majority of the time. Trials of amitriptyline, topiramate, propranolol for migraine prophylaxis of either found only temporary relief or been limited by adverse effects. She also had adverse effects with trials of sumatriptan and rizatriptan. Given the frequency of headaches headache prophylaxis remains appropriate. Treatment considerations would include botulism toxin, verapamil, or CGRP inhibitors. Given her existing comorbidities and medications, botulism toxin would be my recommendation. I will refer her to Ms. Bennett for consideration of botulinum toxin. Anxiety 05/12/2020 Depression 05/12/2020 Asthma 07/01/2014 Overview (04/08/2021): Overview: Was given an inhaler but doesn't use it. IBS (irritable bowel syndrome) 07/01/2014 Family history of liver disease 09/24/2013 Overview (04/08/2021): Patient reports multiple paternal family members with liver disease. Reports daughter also had genetic workup and carries the disease. One family member on liver transplant list currently. Unsure of disease name CHRISTINE (nonalcoholic steatohepatitis) 09/23/2013 Overview (04/08/2021): AST/ALT: 61/104 per labs AST/ALT normal 09/24 Hepatitis screen negative Schizophrenia 09/23/2013 Overview (04/08/2021): Currently on Seroquel, Prozac, and atarax NAFLD (nonalcoholic fatty liver disease) 014 Overview (11/17/2021): 03/06/21 Fibroscan CAP 295, LSM 8.6 kPa Immunizations Name Administration Dates Next Due Hep A / Hep B 01/30/2015,09/30/2014,08/30/2014 Influenza, Unspecified 02/19/2021,03/19/2020 Moderna SARS-CoV-2 Monovalen t Vaccination (12+ YRS) 04/06/2021,03/09/2021 Pneumococcal Polysaccharide PPV23 10/31/2013 Tdap 10/01/2013 Social History Tobacco Use Types Packs/Day Years Used Date Smoking Tobacco: Former Cigarettes 1 20 0 06/13/1995 - 06/13/2015 Smokeless Tobacco: Never AUDIT-C Answer Date Recorded Frequency of Alcohol Consumption Not on file 04/13/2023 Q2: How many drinks containi ng alcohol do you have on a typical day when you are drinking? Patient does not drink Frequency of Binge Drinking Not on file 06/2022 Comments No Sex and Gender Information Value Date Recorded Sex Assigned at Not on file Legal Sex Female 8:33 PM WASTE MINIMIZATION TECHNICIAN Gender Identity Female 08/06/2021 9:34 AM WASTE MINIMIZATION TECHNICIAN Sexual Orientation Straight 08/06/2021 9: 34 AM WASTE MINIMIZATION TECHNICIAN Occupation Industry Job Start Date Job End Date on disability Not on file Not on file Not on file Last Filed Vital Signs Vital Sign Reading Time Taken Comments Blood Pressure 100/60 05/28/2024 3:33 PM WASTE MINIMIZATION TECHNICIAN Pulse 75 05/28/2024 3:33 PM WASTE MINIMIZATION TECHNICIAN Temperature 36.8 ??C (98.3 ??F) 04/11/2024 1:22 PM CD T Respiratory Rate 20 05/28/2024 3:33 PM WASTE MINIMIZATION TECHNICIAN Oxygen Saturation 97% 05/28/2024 3:33 PM WASTE MINIMIZATION TECHNICIAN Inhaled Oxygen Concentration - - Weight 77.1 kg (170 lb) 05/28/2024 3:33 PM WASTE MINIMIZATION TECHNICIAN Height 167.6 cm (5' 6 ) 05/28/2024 3:33 PM WASTE MINIMIZATION TECHNICIAN Body Mass Index 27.44 05/28/2024 3:33 PM WASTE MINIMIZATION TECHNICIAN Plan of Treatment Not on file Procedures Procedure Name Priority Date/Time Associated Diagnosis Comments BOTOX INJECTION Routine 05/01/2024 1:30 PM WASTE MINIMIZATION TECHNICIAN Intractable chronic migraine without aura and without status migrainosus from Last 3 Months Results * Botox Injection (05/01/2024 1:30 PM WASTE MINIMIZATION TECHNICIAN) Narrative Za Pires - 05/01/2024 1:30 PM WASTE MINIMIZATION TECHNICIAN Za Pires ? 05/04/2024 ??4:20 PM Botox Injection Performed by: Ana Bennett NP Authorized by: Ana Bennett NP ?? Herrin Protocol: Consent Given by: ??Patient Timeout: prior to procedure the correct patient, procedure, and site was verified ?? Procedure Details - Botox Injection: ??Procedure Details: See Botox flow sheet for details on injection sites and amounts. This can be found in Media and labeled [email or web address] [email or web address]. Procedure Note Za Pires - 05/01/2024 1:30 PM CST Botox Injection Performed by: Ana Bennett NP Authorized by: Ana Bennett NP Herrin Protocol: Consent Given by: Patient Timeout: prior to procedure the correct patient, procedure, and site wasverified Procedure Details - Botox Injection: Procedure Details: See Botox flow sheet for details on injection sitesand amounts. This can be found in Media and labeled [email or web address] [email or web address]. Ana Bennett NP IN CLINIC/BEDSIDE ORDERABLES Final Result from Last 3 Months Insurance [employer] [facility] Care Teams [employer] Sawyer Relationship Specialty Start Date End Date Nyasia Arauz MD [address] [place] [address] PCP - General Family Medicine 02/07/24 Mendez Pantoja MD [address] [place] [address] MEDICAL ONCOLOGY, [address] [address] Medical Oncologist/Hematologis t Hematology and Oncology 02/10/23
--- OUTSIDE RECORDS SUMMARY | 2024-07-17 07:44 | XMS_ITS | Patient Health Summary ---
Author Organization [facility] Address [address] [place] [address] Care Team Providers Care International Tax Manager Name Role Phone Nyasia Arauz MD Primary Care Provider [phone] [facility],non-owned Affiliates and Associated Physician Practices is amultiple site organization consisting of ambulatory clinics and hospital sitesin [place], [place], [place] and [place]. This disclosure is being madepursuant to the Care Everywhere program and may not contain all information available regarding this patient. Last updated 18.[facility] Allergies * Zolpidem(Psychiatric) * Codeine(Nausea and/or Vomiting) * Hydrocodone(Nausea and/or Vomiting) Medications * Be aware that medications may not be up to date on this document. Alwaysverify current medications with the patient. * lansoprazole (PREVACID) 30 MG capsule Take 30 mg by mouth 2 times daily,before breakfast and supper. * brexpiprazole (REXULTI) 1 MG tablet Take 3 mg by mouth at bedtime * cetirizine (ZYRTEC) 10 MG tablet(Started 04/22/2020) Take 1 (one) tablet by mouth once daily * clonazePAM (KLONOPIN) 0.5 MG tablet(Started 06/11/2019) Take 1 (one) tablet by mouth as needed * gabapentin (NEURONTIN) 300 MG capsule Take 300 mg by mouth once daily * rOPINIRole (REQUIP) 0.5 MG tablet Take 0.5 mg by mouth once daily * erenumab-aooe (AIMOVIG) 70 MG/ML auto injector pen(Started 04/08/2021) Inject 70 mg subcutaneously * fluticasone propionate (FLONASE) 50 MCG/ACT nasal spray(Started 11/26/2020) * ibuprofen (MOTRIN) 800 MG tablet ibuprofen 800 mg tablet TAKE 1 TABLET BY MOUTH EVERY 8 HOURS * ondansetron, disintegrating, (ZOFRAN ODT) 4 MG tablet(Started 02/17/2021) * lithium carbonate (ESKALITH) 600 MG capsule(Started 10/11/2021) * cyclobenzaprine (FLEXERIL) 10 MG tablet cyclobenzaprine 10 mg tablet * pantoprazole EC (PROTONIX) 40 MG tablet pantoprazole 40 mg tablet,delayed release TAKE 1 TABLET BY MOUTH ONCE DAILY * carvedilol (Coreg) 12.5 MG tablet(Started 01/09/2024) * OXcarbazepine (Trileptal) 150 MG tablet(Started 08/22/2023) * Atogepant (Qulipta) 10 MG TABS * atomoxetine (Strattera) 10 MG capsule Take by mouth every morning * clobetasol (Temovate) 0.05 % cream(Started 01/24/2024) Apply to affected areas of skin two times per day as needed to arms and legs for psoriasis 1 refill by 01/23/2025 * clobetasol (Temovate) 0.05 % solution(Started 01/24/2024) Apply to affected areas of skin two times per day as needed to scalp for psoriasis 1 refill by 01/23/2025 Active Problems Problem Noted Date Diagnosed Date PCOS (polycystic ovarian syndrome) 10/14/2021 History of gestational diabetes 10/14/2021 Overweight 10/14/2021 Intractable migraine with aura without status mi grainosus 01/13/2021 Acanthosis nigricans 05/12/2020 Anxiety 05/12/2020 Depression 05/12/2020 Asthma 07/01/2014 IBS (irritable bowel syndrome) 07/01/2014 Consider eligibility for Vu study 10/29/2013 Family history of liver disease 09/24/2013 NAFLD (nonalcoholic fatty liver disease) 014 Previous delivery x3 09/23/2013 Schizophrenia 09/23/2013 Resolved Problems Problem Noted Date Diagnosed Date Resolved Date Supervision of other high-risk 09/23/2013 09/12/2021 Habitual aborter, currently 09/23/2013 09/12/2021 Hx of delivery, currently 09/23/2013 09/12/2021 Immunizations * Covid Moderna primary monovalent 12+ yr 0.5mL(Given 03/16/2021, 02/18/2021) * INFLUENZA VACCINE(Given 02/19/2021, 03/19/2020) * PNEUMOCOCCAL PPSV23(Given 10/31/2013) * TDAP (7yrs+)(Given 10/01/2013) Social History Tobacco Use Types Packs/Day Years Used Date Smoking Tobacco: Former Cigarettes 0.3 19 Smokeless Tobacco: Never Tobacco Cessation:Counseling Given: Not Answered Alcohol Use Standard Drinks/Week Comments No 0 (1 standard drink = 0.6 oz pur e alcohol) Sex and Gender Information Value Date Recorded Sex Assigned at Not on file Gender Identity Female 09/05/2021 11:57 AM CDT Sexual Orientation Straight 09/05/2021 11 :57 AM CDT Last Filed Vital Signs Vital Sign Reading Time Taken Comments Blood Pressure 122/80 10/14/2021 10:46 AM CDT Pulse 82 10/14/2021 10:46 AM CDT Temperature 36.8 ??C (98.3 ??F) 08/13/2021 1:24 PM CS T Respiratory Rate 16 08/13/2021 1:24 PM LABELER Oxygen Saturation 99% 08/13/2021 1:24 PM LABELER Inhaled Oxygen Concentration - - Weight 84.9 kg (187 lb 3.2 oz) 10/14/2021 10:46 AM CDT Height 168.9 cm (5' 6.5 ) 10/14/2021 10:46 AM CD T Body Mass Index 29.76 10/14/2021 10:46 AM CDT Procedures * FUNGUS LEANNA - POINT OF CARE (AMB) [facility](Performed 05/12/2020) 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) * IMAGING/RADIOLOGY/XRAY RESULTS ORDER(Performed 08/15/2014) * IMAGING/RADIOLOGY/XRAY RESULTS ORDER(Performed 08/15/2014) * IMAGING/RADIOLOGY/XRAY RESULTS ORDER(Performed 08/15/2014) * IMAGING/RADIOLOGY/XRAY RESULTS ORDER(Performed 08/15/2014) * IMAGING/RADIOLOGY/XRAY RESULTS ORDER(Performed 08/15/2014) * HEPATITIS C RNA QUANTITATIVE(Performed 07/01/2014) * YOALW-8-XHNZCIRSEFT BLOOD PHENOTYPING PANEL(Performed 07/01/2014) * ALVINA BLOOD SCREEN W/REFLEX TITER(Performed 07/01/2014) * SMOOTH MUSCLE ANTIBODY(Performed 07/01/2014) * MITOCHONDRIAL ANTIBODY SCREEN(Performed 07/01/2014) * HEPATITIS A ANTIBODY(Performed 07/01/2014) * TRANSFERRIN(Performed 07/01/2014) * IRON BLOOD(Performed 07/01/2014) * HEPATITIS B SURFACE ANTIGEN W RFLX CONFIRMATION(Performed 07/01/2014) * HEPATITIS B SURFACE ANTIBODY(Performed 07/01/2014) * HEPATITIS B CORE ANTIBODY TOTAL(Performed 07/01/2014) * CERULOPLASMIN(Performed 07/01/2014) * ARYTW-8-CCRYTFPSORI BLOOD(Performed 07/01/2014) * HEPATIC FUNCTION PANEL(Performed 07/01/2014) * PT-INR [facility](Performed 07/01/2014) * CBC W AUTO DIFFERENTIAL(Performed 07/01/2014) * CBC W AUTO DIFFERENTIAL(Performed 07/01/2014) * HCG URINE QUALITATIVE - POINT OF CARE(Performed 02/05/2014) * CYTOLOGY CERVICAL/VAG PAP SCREEN THIN PREP(Performed 12/10/2013) * HPV DNA PROBE HI RISK + LOW RISK PANEL(Performed 12/10/2013) Performed for Supervision of other high-risk , unspecified trimester * HCG URINE QUALITATIVE - POINT OF CARE(Performed 12/10/2013) * IMAGING/RADIOLOGY/XRAY RESULTS ORDER(Performed 11/07/2013) * CBC W AUTO DIFFERENTIAL(Performed 10/31/2013) * SECTION (REPEAT)(Performed 10/30/2013) * BLOOD GASES CORD REYNALDO (ISTAT)(Performed 10/30/2013) * NEURAXIAL BLOCK(Performed 10/30/2013) * PATHOLOGY TISSUE EXAM (STL)(Performed 10/30/2013) * CROSSMATCH RBC LEUKOREDUCED(Performed 10/30/2013) * CROSSMATCH RBC LEUKOREDUCED(Performed 10/30/2013) * BLOOD TYPE VERIFICATION(Performed 10/30/2013) * TYPE + SCREEN PANEL(Performed 10/30/2013) * COMPREHENSIVE METABOLIC PANEL(Performed 10/30/2013) * CBC W AUTO DIFFERENTIAL(Performed 10/30/2013) * RPR(Performed 10/30/2013) * BIOPHYSICAL PROFILE W NST(Performed 10/29/2013) * SONOGRAM - LIMITED(Performed 10/29/2013) Performed for CHRISTINE (nonalcoholic steatohepatitis) * GLUCOSE PROTEIN KETONE URINE - POINT OF CAR(Performed 10/29/2013) * BIOPHYSICAL PROFILE W NST(Performed 10/22/2013) Performed for CHRISTINE (nonalcoholic steatohepatitis) * GLUCOSE PROTEIN KETONE URINE - POINT OF CAR(Performed 10/22/2013) * SONOGRAM - LIMITED(Performed 10/15/2013) Performed for CHRISTINE (nonalcoholic steatohepatitis) * BIOPHYSICAL PROFILE W NST(Performed 10/15/2013) Performed for CHRISTINE (nonalcoholic steatohepatitis) * GLUCOSE PROTEIN KETONE URINE - POINT OF CAR(Performed 10/15/2013) * GLUCOSE PROTEIN KETONE URINE - POINT OF CAR(Performed 10/13/2013) * SONOGRAM - LIMITED(Performed 10/08/2013) Performed for CHRISTINE (nonalcoholic steatohepatitis) * BIOPHYSICAL PROFILE W NST(Performed 10/08/2013) Performed for CHRISTINE (nonalcoholic steatohepatitis) * GLUCOSE PROTEIN KETONE URINE - POINT OF CAR(Performed 10/08/2013) * URINALYSIS REFLEX MICROSCOPIC REFLEX CULTURE(Performed 10/04/2013) * CULTURE URINE(Performed 10/04/2013) * SONOGRAM - COMPLETE(Performed 10/01/2013) Performed for CHRISTINE (nonalcoholic steatohepatitis) * GLUCOSE PROTEIN KETONE URINE - POINT OF CAR(Performed 10/01/2013) * BILE ACIDS(Performed 09/24/2013) * HEPATITIS C ANTIBODY(Performed 09/24/2013) * HEPATITIS B SURFACE ANTIGEN W RFLX CONFIRMATION(Performed 09/24/2013) * COMPREHENSIVE METABOLIC PANEL(Performed 09/24/2013) * GLUCOSE PROTEIN KETONE URINE - POINT OF CAR(Performed 09/24/2013) Results * FUNGUS LEANNA - POINT OF CARE (AMB) [facility] (05/12/2020) LEANNA Prep No Fluid BODY FLUID SPECIMEN / Unknown 05/12/2020 Harmeet Calderón MD LAB - POINT OF CARE ORDERABLES * IMAGING/RADIOLOGY/XRAY RESULTS ORDER (08/15/2014 4:15 AM LABELER) Only the most recent of6 resultswithin the time period is included. Anatomical Region Laterality Modality Other Narrative 08/15/2014 4:15 AM LABELER Ordered by an unspecified provider. Scanned Document IMAGING * PT-INR [facility] (07/01/2014 1:01 PM LABELER) PT 13.7 12.1 - 14.8 Seconds [facility] INR 1.0 See Comment [facility] Comment: Suggested therapeutic range for low-intensity coumadin therapy for venous thromboembolism prophylaxis is an INR of 2.0-3.0. ??For high risk patients (Mitral Valve Prosthesis, Atrial Fibrillation, history of TIA/stroke), suggested prophylactic therapeutic range is an INR of 2.5-3.5. Blood specimen (specimen) BLOOD SPECIMEN / Unknown 07/01/2014 1:01 PM LABELER 07/01/2014 2:19 PM LABELER Narrative [facility] - 07/01/2014 3:00 PM LABELER Is patient on Heparin, Argatroban or Dabigatran?->N Zeferino Alvarenga MD LAB - COAG ULATION ORDERABLES Performing Organization Address [facility]/State/[place] Co de Phone Number [address] [phone] * MITOCHONDRIAL ANTIBODY SCREEN (07/01/2014 1:01 PM LABELER) Mitochondrial M2 Antibody 2.5 0.0 - 20.0 Units [facility] Comment: Mitochondrial M2 Antibody Numeric Result Interpretation: ?<20.1 Units: ??Negative ?20.1 - 24.9 Units: ??Equivocal ?>24.9 Units: ??Positive ? Blood specimen (specimen) BLOOD SPECIMEN / Unknown 07/01/2014 1:01 PM LABELER 07/01/2014 2:20 PM LABELER Zeferino Alvarenga MD LAB - CHEM ISTRY ORDERABLES [facility] [address] [place] [address], [facility] [phone] * LELOX-1-IZTEDHKVXVG BLOOD PHENOTYPING PANEL (07/01/2014 1:01 PM LABELER) Xuuic-2-Jgscdanwbz n 143 90 - 200 mg/dL [facility] Phenotype (PI) MM [facility] ([facility]) Comment: Phenotype ?? Population ? A-1-AT Concentration* ?Incidence % ? % of MM ??Ref. Range ??Mean MM ?86.5% ?100% ? (90-200) ?145 MS ? 8.0% ? 81% ? (73-162) ?118 MZ ? 3.9% ? 60% ? (54-120) ? 87 FM ? 0.4% ? 97% ? (87-194) ?141 SZ ? 0.3% ? 39% ? (35- 78) ? 57 SS ? 0.1% ? 71% ? (64-142) ?103 ZZ ? 0.05% ? 7% ? ( 6- 14) ? 10 FS ? 0.05% ?66% ? (59-132) ? 96 FZ ?Unknown ? Unknown FF ?Unknown ? Unknown *A-1-AT concentration in the homozygous MM phenotype is taken as the reference normal. ??Deficiency in phenotypes is reported relative to this reference. Blood specimen (specimen) BLOOD SPECIMEN / Unknown 07/01/2014 1:01 PM LABELER 07/01/2014 2:20 PM LABELER Narrative [facility] ([place]) - 07/04/2014 11:26 AM LABELER Performed at: ??01 - [facility] [address] ??[id number] Algologist: Heber Obando PhD, Phone: ??[phone] Performed at: ??02 - [facility] [address] ??[id number] Algologist: Mendez Baez MD, Phone: ??[phone] Zeferino Alvarenga MD LAB - CHEM ISTRY ORDERABLES Performing Organization Address City/State/[place] Co de Phone Number [facility] ([place]) * HEPATITIS C RNA QUANTITATIVE PCR (07/01/2014 1:01 PM LABELER) Hepatitis C Virus RNA PCR Specimen: 1 ml Serum Reference: [id number] Test: Hepatitis C RT-PCR (Quantitative) RESULT Not Detected Reference Range Not Detected INTERPRETATION The quantitative Hepatitis C viral RNA RT-PCR determination was performed on a serum sample and is reported in IU/ml. Hepatitis C viral RNA was not detected. COMMENT The Hepatitis C (HCV) viral RNA analysis utilized a serum sample, real-time reverse engineer sergeant PCR, and is reported as Not Detected/Detected (<50)/Quantity (IU/ml) or >35,000,000 IU/ml. The analytical sensitivity of the assay is 7 IU/ml (95% of samples with this HCV RNA level were detected). ??Values less than 7 IU/ml are reported as Not Detected (<7 IU/ml); values greater than 7 IU/ml and less than 50 IU/ml are reported as Detected (<50). ??The linear range is from 50 IU/ml to 35,000,000 IU/ml. ??Values greater than 35,000,000 IU/ml are reported as >35,000,000 IU/ml. The detection/quantita tion of HCV RNA in serum or plasma is based on the isolation of HCV RNA with reverse engineer sergeant of genomic HCV RNA followed by real-time PCR in the presence of a reference standard RNA. ??The standard ensures that RNA was isolated, that no general significant inhibitors of the RT-PCR process were present. This test was developed and its performance characteristics determined by the [facility] at [facility]. It has not been cleared or approved by the U.S. Food and Drug Administration. The FDA has determined that such clearance or approval is not necessary. This test is used for clinical purposes. It should not be regarded as investigational or for research. This laboratory is certified under the Clinical Laboratory Improvement Amendments of 1988 (CLIA-88) as qualified to perform high complexity clinical laboratory testing. Test performed at [facility], [address] [place] [address] ??[id number] This case has been personally reviewed and interpreted by the attending (teaching) pathologist. Final Diagnosis performed by Murali Mackey PHD. Electronically signed 07/04/2014 [facility] ([facility]) Blood specimen (specimen) BLOOD SPECIMEN / Unknown 07/01/2014 1:01 PM LABELER 07/01/2014 2:20 PM LABELER Zeferino Alvarenga MD LAB - CHEM ISTRY ORDERABLES [facility] ([facility]) * ALVINA BLOOD SCREEN W/REFLEX TITER (07/01/2014 1:01 PM LABELER) ALVINA IFA Negative [facility] ([facility]) Comment: ? Negative ?? <1:80 ? Borderline ??1:80 ? Positive ?? >1:80 Blood specimen (specimen) BLOOD SPECIMEN / Unknown 07/01/2014 1:01 PM LABELER 07/01/2014 2:20 PM LABELER Narrative [facility] ([place]) - 07/03/2014 5:14 PM LABELER Performed at: ??01 - [facility] [address], [place], [place] ??[id number] Algologist: Heber Obando PhD, Phone: ??[phone] Zeferino Alvarenga MD LAB - CHEM ISTRY ORDERABLES Performing Organization Address [facility] de Phone Number [facility] ([place]) * TRANSFERRIN (07/01/2014 1:01 PM LABELER) Transferrin 242 174 - 382 mg/dL [facility] Transferrin Saturation % 31 16 - 50 % [facility] Blood specimen (specimen) BLOOD SPECIMEN / Unknown 07/01/2014 1:01 PM LABELER 07/01/2014 2:20 PM LABELER Zeferino Alvarenga MD LAB - CHEM ISTRY ORDERABLES Performing Organization Address [facility] de Phone Number [address] [phone] * CERULOPLASMIN (07/01/2014 1:01 PM LABELER) Ceruloplasmin 26 20 - 60 mg/dL [facility] Blood specimen (specimen) BLOOD SPECIMEN / Unknown 07/01/2014 1:01 PM LABELER 07/01/2014 2:20 PM LABELER Zeferino Alvarenga MD LAB - CHEM ISTRY ORDERABLES Performing Organization Address [facility]/State/ZIP Co de Phone Number [address] [phone] * UHORB-2-AOYFQNQRVNX BLOOD (07/01/2014 1:01 PM LABELER) Pathologist [facility] Idtjn-5-Uclsxe ypsin 152 90 - 200 mg/dL [facility] Blood specimen (specimen) BLOOD SPECIMEN / Unknown 07/01/2014 1:01 PM LABELER 07/01/2014 2:20 PM LABELER Zeferino Alvarenga MD LAB - CHEM ISTRY ORDERABLES Performing Organization Address [facility]/[place] Co de Phone Number [address] [phone] * SMOOTH MUSCLE ANTIBODY (07/01/2014 1:01 PM LABELER) [facility] F-Actin Antibody IgG 9.6 0.0 - 19.9 Units [facility] Comment: F-Actin Antibody Numeric Result Interpretation: ?<20.0 Units: ??Negative ?20.0 - 30.0 Units: ??Weak Positive ?>30.0 Units: ??Moderate to Strong Positive ? Blood specimen (specimen) BLOOD SPECIMEN / Unknown 07/01/2014 1:01 PM LABELER 07/01/2014 2:20 PM LABELER Zeferino Alvarenga MD LAB - SERO LOGY ORDERABLES Performing Organization Address [facility]/[place] Co de Phone Number [address] [phone] * (ABNORMAL) CBC W AUTO DIFFERENTIAL (07/01/2014 1:01 PM LABELER) Only the most recent of4 resultswithin the time period is included. [facility] WBC 10.9(H) 3.5 - 10.5 10? 3 /uL [facility] RBC 5.00 3.90 - 5.00 10? 6 /uL [facility] Hemoglobin 14.7 12.0 - 15.5 g/dL [facility] Hematocrit 43.4 35.0 - 45.0 % [facility] MCV 86.8 81.0 - 97.0 fL [facility] MCH 29.4 28.0 - 34.0 pg [facility] MCHC 33.9 32.0 - 36.0 g/dL [facility] Platelet Count 329 150 - 400 10? 3 /uL [facility] RDW-SD 41.2 36.0 - 50.0 fL [facility] RDW-CV 13.0 11.2 - 14.8 % [facility] MPV 10.9 9.3 - 12.8 fL [facility] Neutrophils % 61.4 35.0 - 70.0 % [facility] Lymphocytes % 31.6 19.7 - 55.1 % [facility] Monocytes % 4.5 3.0 - 15.0 % [facility] Eosinophils % 1.9 0.0 - 6.0 % [facility] Basophil % 0.6 0.0 - 1.5 % [facility] Neutrophils Absolute 6.7 1.6 - 7.0 10? 3 /uL [facility] Lymphocyte Absolute 3.4(H) 0.8 - 2.9 10? 3 /uL [facility] Monocytes Absolute 0.49 0.14 - 0.66 10? 3 /uL [facility] Eosinophils Absolute 0.21 0.00 - 0.22 10? 3 /uL [facility] Basophils Absolute 0.06 0.00 - 0.06 10? 3 /uL [facility] Immature Granulocytes % 0.5 0.0 - 1.0 % [facility] Blood specimen (specimen) BLOOD SPECIMEN / Unknown 07/01/2014 1:01 PM LABELER 07/01/2014 2:19 PM LABELER Zeferino Alvarenga MD LAB - PATRICIA TOLOGY ORDERABLES [facility] [address] [phone] * HEPATIC FUNCTION PANEL (07/01/2014 1:01 PM LABELER) [facility] Protein Total 7.2 6.0 - 8.3 g/dL [facility] Albumin 4.3 3.4 - 5.0 g/dL [facility] Bilirubin Total 0.8 0.2 - 1.2 mg/dL [facility] Bilirubin Conjugated 0.2 0.0 - 0.5 mg/dL [facility] Bilirubin Unconjugated 0.6 Unconjugated Bilirubin is a calculated value: Reference ranges have not been established. mg/dL [facility] Alkaline Phosphatase 60 40 - 150 Units/L [facility] ALT 18 0 - 55 Units/L [facility] AST 17 5 - 34 Units/L [facility] Albumin/Globulin Ratio 1.5 1.1 - 2.3 [facility] Blood specimen (specimen) BLOOD SPECIMEN / Unknown 07/01/2014 1:01 PM LABELER 07/01/2014 2:19 PM LABELER Zeferino Alvarenga MD LAB - CHEM ISTRY ORDERABLES [address] [phone] * IRON BLOOD (07/01/2014 1:01 PM LABELER) [facility] Iron 93 40 - 150 mcg/dL [facility] Blood specimen (specimen) BLOOD SPECIMEN / Unknown 07/01/2014 1:01 PM LABELER 07/01/2014 2:20 PM LABELER Zeferino Alvarenga MD LAB - CHEM ISTRY ORDERABLES Performing Organization Address [facility]/[place] Co de Phone Number [address] [phone] * HEPATITIS B SURFACE ANTIBODY (07/01/2014 1:01 PM LABELER) [facility] Hepatitis B Virus Surface Antibody Non-react [place] Non-react [place] [facility] Comment: < 8 mIU/mL Hepatitis B surface Antibody (HBsAb). Nonreactive for HBsAb - individual is considered not immune to Hepatitis B Virus infection. Hepatitis B Surface Antibody Quantitative 0.9 <8.0 mIU/mL [facility] Comment: Hepatitis B Surface Antibody Numeric Result Interpretation: ? Nonreactive: ?<8.0 mIU/mL ? Indeterminate: ??8.0 - 12.0 mIU/mL ? Reactive: ?>12.0 mIU/mL ? Blood specimen (specimen) BLOOD SPECIMEN / Unknown 07/01/2014 1:01 PM LABELER 07/01/2014 2:20 PM LABELER Zeferino Alvarenga MD LAB - CHEM ISTRY ORDERABLES Performing Organization Address [facility] de Phone Number [address] [phone] * HEPATITIS B CORE ANTIBODY (07/01/2014 1:01 PM LABELER) HBc Antibody Total Non-reacti ve Non-reacti ve [facility] Blood specimen (specimen) BLOOD SPECIMEN / Unknown 07/01/2014 1:01 PM LABELER 07/01/2014 2:20 PM LABELER Zeferino Alvarenga MD LAB - CHEM ISTRY ORDERABLES Performing Organization Address [facility] de Phone Number [address] [phone] * HEPATITIS B SURFACE ANTIGEN W RFLX CONFIRMATION (07/01/2014 1:01 PM LABELER) Only the most recent of2 resultswithin the time period is included. Hepatitis B Virus Surface Antigen Non-reacti ve Non-reacti ve [facility] Blood specimen (specimen) BLOOD SPECIMEN / Unknown 07/01/2014 1:01 PM LABELER 07/01/2014 2:20 PM LABELER Zeferino Alvarenga MD LAB - CHEM ISTRY ORDERABLES [facility] [address] [place] [address] * (ABNORMAL) HEPATITIS A ANTIBODY (07/01/2014 1:01 PM LABELER) Pathologist [facility] Hepatitis A Virus Antibody Total Positive(A ) Negative [facility]) Blood specimen (specimen) 07/01/2014 1:01 PM LABELER 07/01/2014 2:19 PM LABELER Narrative [facility] ([place]) - 07/03/2014 6:28 AM LABELER Performed at: ??01 - [address] ??[id number] Algologist: Heber Obando PhD, Phone: ??[phone] Zeferino Alvarenga MD LAB - CHEM ISTRY ORDERABLES Performing Organization Address City/[facility]/ZIP Co de Phone Number [facility] ([place]) * HCG URINE QUALITATIVE - POINT OF CARE (IP) (02/05/2014 9:58 AM CDT) Only the most recent of2 resultswithin the time period is included. Pathologist [facility] HCG Qual Urine Negative Negative [facility] POCT TESTING QC Verified Yes [facility] POC T TESTING Urine specimen (specimen) URINE / Unknown 02/05/2014 9:58 AM CDT Diego Lyle MD LAB - POINT OF CARE ORDERABLES [facility] POCT TESTING [address] * HPV DNA PROBE HI RISK + LOW RISK PANEL (12/10/2013 3:16 PM CDT) Pathologist [facility] Human papillomavirus Low Risk Not Performed 12/19/2013 9:14 AM CDT [facility] Human papillomavirus High Risk Negative 12/19/2013 9:14 AM CDT [facility] Pathology/Cytolo gy ENTIRE ENDOCERVIX / Unknown Collection / Unknown 12/10/2013 3:16 PM CDT 12/19/2013 9:01 AM CDT Shaggy Martell MD LAB - MICROBIOLOGY O RDERABLES Performing Organization Address [facility]/[place] Co de Phone Number [facility] [address] [place] [address] * CYTOLOGY CERVICAL/VAG SCREEN THIN PREP (12/10/2013 3:16 PM CDT) ThinPrep Pap See Scanned Report 12/19/2013 9:15 AM CDT [facility] REF LAB NON INTERF Miscellaneous samples (specimen) ENTIRE ENDOCERVIX / Unknown Collection / Unknown 12/10/2013 3:16 PM CDT 12/10/2013 4:09 PM CDT Diego Lyle MD LAB - PATHOLOGY/CYTO LOGY ORDERABLES Performing Organization Address [facility]/[place] Co de Phone Number [facility] REF LAB NON INTERF [address] [place] [address] * BLOOD GASES CORD REYNALDO (ISTAT) (10/30/2013 11:20 AM CDT) pH Cord Venous POCT 7.36 7.28 - 7.40 pH 10/30/2013 11:39 AM T [facility] [facility] pCO2 Cord Venous POCT 43 35 - 45 mmHg 10/30/2013 11:39 AM T [facility] pO2 Cord Venous POCT 23 22 - 33 mmHg 10/30/2013 11:39 AM T [facility] HCO3 Cord Arterial POCT 24 22 - 24 mmol/L 10/30/2013 11:39 AM T [facility] BE Cord Venous POCT Calc -1 -6 - 2 mmol/L 10/30/2013 11:39 AM T [facility] TCO2 Cord Venous POCT 26 22 - 30 mmol/L 10/30/2013 11:39 AM T [facility] O2 Saturation % Cord Venous Calc POCT 36 % 10/30/2013 11:39 AM CDT [facility] Site CORD REYNALDO 10/30/2013 11:39 AM T [facility] Sample iSTAT CORD V 10/30/2013 11:39 AM CDT [facility] Blood CORD BLOOD SPECIMEN / Unknown 10/30/2013 11:20 AM CDT 10/30/2013 11:39 AM CDT Domi Leon MD LAB - POINT OF CARE ORDERABLES Performing Organization Address City/State/[place] Co de Phone Number [facility] [address] [place] [address] * NEURAXIAL BLOCK (10/30/2013 10:55 AM CDT) Narrative Mary Barron APRN-CRNA - 10/30/2013 10:55 AM CDT ANABEL Bridges ? 10/30/2013 10:55 AM NEURAXIAL BLOCK Patient Location: ??OB Pre Procedure Indication: ??surgical anesthesia Anticoagulation /Antithrombosis Status Confirmed: Yes Preanesthetic Checklist: ??patient identified, IV checked, site marked, risks and benefits discussed, surgical consent verified, monitors and equipment checked, pre-op evaluation done, timeout performed, informed consent obtained and questions answered / anesthesia plan accepted Monitors: ??BP, Pulse Ox, EKG and ETCO2 Patient Condition: ??awake Patient Position: ??sitting Procedure Block Performed: ??spinal Prep: ??Betadine Sterile Field: ??sterile gloves, sterile field established, cap/hat and mask Approach: ??midline Skin Numbed with: ??lidocaine 1% Spinal Needle Type: ??pencil-point Needle Gauge: ??25 G Placement Site: ??L4-5 Number of Attempts: ??1 CSF: ??free flow, aspiration before injection, aspiration during injection and aspiration after injection Local Anesthetic: ??bupivacaine 0.75% in dextrose 1.6 ml Spinal Additive: ??PF morphine 0.1 mg ?fentanyl 10 mcg ? Events CSF return negative injection not painful no paresthesia no other event Degree of Difficulty: ??none Position Post Procedure: ??supine and left uterine displacement Vital signs monitored and stable throughout. ??See Anesthesia Intraop record for details. Block Performed by: ??Keith Procedure Note Mary Barron APRN-CRNA - 10/30/2013 10:51 AM CDT NEURAXIAL BLOCK Patient Location: OB Pre Procedure Indication: surgical anesthesia Anticoagulation /Antithrombosis Status Confirmed: Yes Preanesthetic Checklist: patient identified, IV checked, site marked,risks and benefits discussed, surgical consent verified, monitors andequipment checked, pre-op evaluation done, timeout performed, informedconsent obtained and questions answered / anesthesia plan accepted Monitors: BP, Pulse Ox, EKG and ETCO2 Patient Condition: awake Patient Position: sitting Procedure Block Performed: spinal Prep: Betadine Sterile Field: sterile gloves, sterile field established, cap/hat andmask Approach: midline Skin Numbed with: lidocaine 1% Spinal Needle Type: pencil-point Needle Gauge: 25 G Placement Site: L4-5 Number of Attempts: 1 CSF: free flow, aspiration before injection, aspiration during injectionand aspiration after injection Local Anesthetic: bupivacaine 0.75% in dextrose 1.6 ml Spinal Additive: PF morphine 0.1 mg fentanyl 10 mcg Events CSF return negative injection not painful no paresthesia no other event Degree of Difficulty: none Position Post Procedure: supine and left uterine displacement Vital signs monitored and stable throughout. See Anesthesia Intraoprecord for details. Block Performed by: Keith Mary Barron APRN-BASKET BRAIDER GENERAL ANESTHE BRITANY ORDERABLES * GROSS + MICRO EXAM (STL) (10/30/2013 10:45 AM CDT) Case Report Surgical Pathology Report ? Case: [id number] ? -------- Authorizing Provider: ??Anderson Carrillo MD ? Ordering Provider: ?? Anderson Carrillo MD ? Ordering Location: ? [facility] LDR ? Collected: ? 10/30/2013 10:45 AM ? Pathologist: ? Alexus Villatoro MD ? Received: ?10/31/2013 ??7:56 AM ?Signed Out: ?11/01/2013 11:45 AM (Final) ? Specimen: ?Placenta ? 11/01/2013 11:45 AM CDT [facility] Final Diagnosis 1. Placenta, delivery: -- Third trimester placenta -- Three vessel umbilical cord -- No evidence of vasculitis or chorioamnionitis FRANCISCO/suzette 11/01/2013 11:45 AM T [facility] Gross Description The specimen submitted fixed in formalin in a container for gross and microscopic examination labeled with the patient's name Marielle Chaney and, placenta, is a product of vargas consisting of placental disc, placental membrane, and umbilical cord. ??The umbilical cord shows three umbilical vessels and is eccentric in insertion. ??There are no knots identified on the umbilical cord. ??The umbilical cord measures 9 cm in length and 1 cm in diameter. ??The placental membranes are stahl translucent and without any lesions. ??The nearest point of rupture is approximately 1 cm away from the placenta disc margin. ??The placental membranes are 100% marginal in insertion. ??The placental disc measures 20 x 14.5 x 2 cm and weighs 682 gm. ??The aspect of placenta shows normal umbilical cord branching pattern and is covered with bluish translucent amniotic membrane. ??The maternal aspect of the placenta shows intact cotyledons. There are no mass like lesions or infarcts identified. ?? The cut section reveals beefy red placenta. ??Furniture Builder sections of the specimen are submitted as follows: ?? Cassette A1: ??Furniture Builder sections of umbilical cord and placental membranes. Cassette A2: ?? aspect of the placenta. Cassette A3: ??Maternal aspect of the placenta. [employer] RO[employer]/lma 11/01/2013 11:45 AM CDT [facility] Microscopic Description Sections of the umbilical cord show three vessels with no evidence of vasculitis or funisitis. Sections of the membranes reveal unremarkable histology and are free of inflammation. Meconium is not identified. Sections of the placental disc show mature chorionic villi with fibrin deposition. ??No significant hemorrhage or infarction is seen. MC/na 11/01/2013 11:45 AM CDT [facility] Synoptic Report 11/01/2013 11:45 AM CDT [facility] Pathology/Cytolo gy ENTIRE PLACENTA / Unknown 10/30/2013 10:45 AM CDT 10/31/2013 7:56 AM CDT Anderson Carrillo MD LAB - PATHOLOGY/CYTO LOGY ORDERABLES [facility] [address] [place] [address] * CROSSMATCH RBC (10/30/2013 9:47 AM CDT) Only the most recent of2 resultswithin the time period is included. Unit Donor # [id number] 11/03/2013 12:37 AM CDT [facility] Product Code E0336 11/03/2013 12:37 AM CDT [facility] Unit Description E0336 RBC, LR, CPD>AS1 11/03/2013 12:37 AM CDT [facility] ABO Donor Type O 11/03/2013 12:37 AM CDT [facility] Rh Type Unit POS 11/03/2013 12:37 AM CDT [facility] Crossmatch Interpretation Compatible 11/03/2013 12:37 AM CDT [facility] Unit Status Returned 11/03/2013 12:37 AM CDT [facility] Miscellaneous samples (specimen) BLOOD SPECIMEN / Unknown 10/30/2013 9:47 AM CDT 10/30/2013 10:15 AM CDT Nyasia Black MD LAB - BLOOD BA NK ORDERABLES [facility] * BLOOD TYPE VERIFICATION (10/30/2013 9:41 AM CDT) ABO O 10/30/2013 11:03 AM CDT [facility] Rh Type Positive 10/30/2013 11:03 AM CDT [facility] Miscellaneous samples (specimen) BLOOD SPECIMEN / Unknown Venipuncture / Unknown 10/30/2013 9:41 AM CDT 10/30/2013 10:00 AM CDT Domi Leon MD LAB - BLOOD BANK ORD ERABLES [facility] * TYPE + SCREEN PANEL (10/30/2013 9:05 AM CDT) ABO O 10/30/2013 10:12 AM CDT [facility] Rh Type Positive 10/30/2013 10:12 AM CDT [facility] Comment:History check perfor med. Retype required. Antibody Screen Negative 10/30/2013 10:12 AM CDT [facility] Miscellaneous samples (specimen) BLOOD SPECIMEN / Unknown Venipuncture / Unknown 10/30/2013 9:05 AM CDT 10/30/2013 9:22 AM CDT Anderson Carrillo MD LAB - BLOOD BANK ORD ERABLES [facility] * (ABNORMAL) COMPREHENSIVE METABOLIC PANEL (10/30/2013 9:05 AM CDT) Only the most recent of2 resultswithin the time period is included. [facility] Signature Glucose 89 74 - 106 mg/dL 10/30/2013 9:48 AM T [facility] Sodium 139 136 - 145 mmol/L 10/30/2013 9:48 AM [facility] Potassium 3.7 3.5 - 5.1 mmol/L 10/30/2013 9:48 AM [facility] Chloride 108(H) 98 - 107 mmol/L 10/30/2013 9:48 AM [facility] CO2 23 22 - 31 mmol/L 10/30/2013 9:48 AM [facility] Calcium 9.6 8.5 - 10.1 mg/dL 10/30/2013 9:48 AM [facility] Anion Gap 8 5 - 15 mmol/L 10/30/2013 9:48 AM [facility] BUN 12 7 - 21 mg/dL 10/30/2013 9:48 AM [facility] Creatinine 0.15(L) 0.50 - 1.30 mg/dL 10/30/2013 9:48 AM [facility] eGFR by MDRD >60 >60 mL/min/1.7 3m2 10/30/2013 9:48 AM [facility] Comment:Not Calculated eGFR by MDRD >60 >60 mL/min/1.7 3m2 10/30/2013 9:48 AM [facility] Comment:Not Calculated Alkaline Phosphatase 155(H) 38 - 126 U/L 10/30/2013 9:48 AM T [facility] ALT 54 12 - 78 U/L 10/30/2013 9:48 AM [facility] AST 44(H) 5 - 40 U/L 10/30/2013 9:48 AM [facility] Protein Total 6.3(L) 6.4 - 8.2 gm/dL 10/30/2013 9:48 AM CDT [facility] Albumin 2.7(L) 3.4 - 5.0 gm/dL 10/30/2013 9:48 AM CDT [facility] Bilirubin Total 0.4 0.2 - 1.0 mg/dL 10/30/2013 9:48 AM CDT [facility] Blood BLOOD SPECIMEN / Unknown Venipuncture / Unknown 10/30/2013 9:05 AM CDT 10/30/2013 9:22 AM CDT Anderson Carrillo MD LAB - CHEMISTRY SERENE BARRAZA Performing Organization Address City/[facility]/[place] Co de Phone Number [facility] [address] [place] [address] * RPR (10/30/2013 9:05 AM CDT) RPR Nonreactive Nonreactive 10/30/2013 12:29 PM CDT [facility] Blood BLOOD SPECIMEN / Unknown 10/30/2013 9:05 AM CDT 10/30/2013 11:29 AM CDT Anderson Carrillo MD LAB - CHEMISTRY SERENE BARRAZA Performing Organization Address [facility]/[place] Co de Phone Number [facility] [address] [place] [address] * BIOPHYSICAL PROFILE W NST (10/29/2013 10:07 AM CDT) Only the most recent of4 resultswithin the time period is included. Anatomical Region Laterality Modality Other 10/29/2013 10:0 7 AM CDT Narrative 10/29/2013 10:34 AM CDT ? [facility] ?PHONE: ??FAX: Pat. Name: ?MARIELLE CHANEY Yoon. No: ?[id number] Study Date: ?? 10/29/2013 ??10:07am , Age: ? 1980, 33 Pregnancies: ?? 13, Para 1384 LMP: ?01/30/2013 GA by LMP: ?38w6d GA by 1st: ?38w6d GA Selected: ??38w6d (From First S) SUSANA: ?11/06/2013 Referring LYRIC TAVARES Application Coordinator: ??Mana Caraballo RDMS Hist/Ind: ? Elevated LFT's, CHRISTINE ?Schizophrenia, Hx C-sec x3 ?Hx Delivery x3 ?Fam Hx Liver Disease Heart Rate: 137 bpm Amniotic Fluid Index: 10.1cm (07.2-22.7) Biophysical Profile: 03/22 Breathin ?? Tone: 2 ?? NST: 2 Movement: ??2 ?? AFV: ??2 CLINICAL SUMMARY Study Number: ??5 (07/15) TESTING The Biophysical profile score is 03/22. IMPRESSION: Single, live, IUP at 38w6d RECOMMEND: Follow up ultrasound as clinically indicated. ??See other report for full impression/recommendation Kolton Silva MD <Electronic Signature> ??10/29/2013 10:35am Kolton Silva MD [facility] ORDERABLES * SONOGRAM - LIMITED (10/29/2013 9:52 AM CDT) Only the most recent of3 resultswithin the time period is included. Anatomical Region Laterality Modality Other 10/29/2013 9:52 AM CDT Narrative 10/29/2013 10:36 AM CDT ? [facility] ? [facility] ?PHONE: ??FAX: Pat. Name: ?MARIELLE CHANEY No: ?[id number] Study Date: ?? 10/29/2013 ??9:52am , Age: ? 1980, 33 Pregnancies: ?? 13, Para 1384 LMP: ?01/30/2013 GA by LMP: ?38w6d GA by 1st: ?38w6d GA Selected: ??38w6d (From First S) SUSANA: ?11/06/2013 Referring MD: CHAITANYA Application Coordinator: ??Mana Caraballo RDMS Hist/Ind: ? Elevated LFT's, CHRISTINE ?Schizophrenia, Hx C-sec x3 ?Hx Delivery x3 ?Fam Hx Liver Disease Heart Rate: 137 bpm Amniotic Fluid Index: 10.1cm (07.2-22.7) Biophysical Profile: 03/22 Breathin ?? Tone: 2 ?? NST: 2 Movement: ??2 ?? AFV: ??2 CLINICAL SUMMARY Study Number: 5 (06/14) A vargas fetus is identified in cephalic presentation. ??The placenta is anterior. ??The amniotic fluid volume is within normal limits. ??No major malformations are seen. TESTING The Biophysical profile score is 10/10. IMPRESSION: ?? Single, live, IUP at 38w6d Normal ??amniotic fluid volume. Placental location: ??anterior No major malformations are seen today within the limitations of ultrasound. Reassuring testing RECOMMEND: ?? Follow up ultrasound as clinically indicated. Thank you for allowing us the opportunity to care for your patient. Kolton Silva MD <Electronic Signature> ??10/29/2013 10:36am Ramez Jose MD [facility] ORDERABLES * GLUCOSE PROTEIN KETONE URINE - POINT OF CAR (10/29/2013 8:17 AM CDT) Only the most recent of7 resultswithin the time period is included. Glucose UA neg Negative [facility] POCT TESTING Protein UA neg Negative [facility] POCT TESTING Ketone UA neg Negative [facility] POCT TESTING QC Verified Yes Yes [facility] POC T TESTING Urine specimen (specimen) URINE / Unknown 10/29/2013 8:17 AM CDT Emilia Leon MD LAB - POINT OF CARE ORDERABLES [facility] POCT TESTING [address] [place] [address] * (ABNORMAL) URINALYSIS ROUTINE W/REFLEX TO CULTURE (10/04/2013 1:42 PM CDT) Color UA Shirley(A) Straw, Yellow, Dark Yellow 10/04/2013 3:12 PM CDT [facility] Clarity UA Clear 10/04/2013 3:12 PM CDT [facility] Specific Linch UA 1.021 1.005 - 1.030 10/04/2013 3:12 PM CDT [facility] pH UA 7.0 5.0 - 8.0 pH 10/04/2013 3:12 PM CDT [facility] Protein UA Negative Negative 10/04/2013 3:12 PM CDT [facility] Blood UA Negative Negative 10/04/2013 3:12 PM CDT [facility] Leukocyte UA Trace(A) Negative 10/04/2013 3:12 PM CDT [facility] Nitrite UA Negative Negative 10/04/2013 3:12 PM CDT [facility] Glucose UA Negative Negative 10/04/2013 3:12 PM CDT [facility] Ketone UA Negative Negative 10/04/2013 3:12 PM CDT [facility] Bilirubin UA Negative Negative 10/04/2013 3:12 PM CDT [facility] Urobilinogen UA 0.2 0.1 - 1.0 EU/dL 10/04/2013 3:12 PM CDT [facility] WBC UA Auto 0-2 0-2, 2-5 #/hpf 10/04/2013 3:12 PM CDT [facility] RBC UA Auto 2-5 0-2, 2-5 #/hpf 10/04/2013 3:12 PM CDT [facility] Epithelial Cell UA Auto 0-2 0-2, 2-5 #/hpf 10/04/2013 3:12 PM CDT [facility] Hyaline Casts UA Auto 2-5(A) 0 - 2 #/lpf 10/04/2013 3:12 PM CDT [facility] Reflex Status Culture to follow 10/04/2013 3:12 PM CDT [facility] Urine URINE SPECIMEN OBTAINED BY CLEAN CATCH PROCEDURE / Unknown Collection / Unknown 10/04/2013 1:42 PM CDT 10/04/2013 2:59 PM CDT Rebecca Erickson MD LAB - URINALYSIS ORD ERABLES Performing Organization Address [facility]/ZIP Co de Phone Number [facility] [address] [place] [address] * CULTURE URINE (10/04/2013 1:42 PM CDT) Pathologist [facility] Culture 10,000-50,000 CFU/mL normal urogenital syed 10/06/2013 12:03 PM CDT [facility] Urine URINE SPECIMEN OBTAINED BY CLEAN CATCH PROCEDURE / Unknown 10/04/2013 1:42 PM CDT 10/04/2013 2:59 PM CDT Rebecca Erickson MD LAB - MICROBIOLOGY O RDERABLES Performing Organization Address City/[facility]/[place] Co de Phone Number [facility] [address] [place] [address], [facility] * SONOGRAM - COMPLETE (10/01/2013 1:04 PM CDT) Anatomical Region Laterality Modality Other 10/01/2013 1:04 PM CDT Narrative 10/01/2013 7:27 PM CDT ? [facility] ? [facility] ?PHONE: ??FAX: Pat. Name: ?MARIELLE CHANEY Yoon. No: ?[id number] Study Date: ?? 10/01/2013 ??1:04pm , Age: ? 1980, 33 Pregnancies: ?? 13, Para 1384 LMP: ?01/30/2013 GA by LMP: ?34w6d GA by US: ? 34w3d GA Selected: ??34w6d (LMP) SUSANA: ?11/06/2013 Referring MD: CHAITANYA Application Coordinator: ??Iris Chau RDMS Hist/Ind: ? Elevated LFT's, CHRISTINE ?Schizophrenia, Hx C-sec x3 ?Hx Delivery x3 ?Fam Hx Liver Disease MEASUREMENTS & AGE ? GROWTH EVALUATION Measurement ??GA ? Range ? Srce %for GA Ratios ----- ---- ------- BPD ??8.6 cm 34w6d (13u4n-55s1h) Hadl BPD 49% FL/BPD 0.77 (0.71 - 0.87) HC ??31.0 cm 34w4d (34z1h-16i6v) Hadl HC ??46% FL/AC ??0.22 (0.20 - 0.24) AC ??30.5 cm 34w3d (34y0a-14n3q) Hadl AC ??43% HC/AC ??1.02 (0.94 - 1.13) FL ?? 6.6 cm 34w0d (90g3a-63f6i) Hadl FL ??37% CI ? 0.82 (0.70 - 0.86) HL ?? 5.9 cm 34w1d (07s5d-60r3i) Clark HL ??38% GA for sonogram 34w3d (64v6c-36t4a) ?? Weight Estimate: based on (HL,BPD,HC,AC,FL) Avg ? Weight: 2417 gm (7209-0609) Hadlo ? : 5lbs, 5oz ? Normal: 2409 gm (1850- 3069) Brenn ? Wt% ? 51% for 34w6d Heart Rate: 131 bpm Amniotic Fluid Index: 15.4cm (07.9-24.9) Q1: 5.4cm ??Q2: 3.9cm ??Q3: 3.3cm ??Q4: 2.8cm ?? Biophysical Profile: 03/22 Breathin ?? Tone: 2 ?? NST: 2 Movement: ??2 ?? AFV: ??2 DOPPLER Umbilical - Mid Cord S/D ??3.40 CLINICAL SUMMARY Study Number: ??1 A vargas fetus is identified in cephalic presentation. ??The measurements today are consistent with menstrual dates. The amniotic fluid volume is within normal limits. ??The placenta is anterior, right lateral. ??Although no major malformations are seen size/position preclude completion of the anatomic survey. DOPPLER STUDIES: ?? The umbilical artery Doppler S/D ratio is 3.36, which is slightly elevated for gestational age. ?? IMPRESSION: ?? Single, live, IUP at 34w6d, AGA fetus, normal ANA Reassuring BPP Increased UA resistance Limited anatomic survey is unremarkable RECOMMEND: ?? Twice weekly NSTs, weekly BPP/ANA/doppler planned Thank you for allowing us the opportunity to care for your patient. Za Emmanuel MD <Electronic Signature> ??10/01/2013 07:27pm Nyasia Black MD [facility] ORDERABLES * BILE ACIDS (09/24/2013 10:46 AM CDT) [facility] Bile Acids Total 2 0 - 10 umol/L 09/25/2013 7:07 AM CDT [employer] Comment: INTERPRETIVE INFORMATION: Bile Acids, Total Reference Interval applies to fasting specimens. Blood specimen (specimen) BLOOD SPECIMEN / Unknown Collection / Unknown 09/24/2013 10:46 AM CDT 09/24/2013 10:56 AM CDT Nyasia Black MD LAB - CHEMISTR Y ORDERABLES [facility] [employer] [address] [place] [address] * HEPATITIS C ANTIBODY (09/24/2013 10:41 AM CDT) [facility] HCV Antibody Screen Non Reactive Non Reactive 09/24/2013 12:27 PM CDT [facility] Blood BLOOD SPECIMEN / Unknown Venipuncture / Unknown 09/24/2013 10:41 AM CDT 09/24/2013 10:56 AM CDT Narrative [facility] - 09/24/2013 12:27 PM CDT Nonreactive - Antibodies to HCV were not detected, result does not exclude early acute HCV infection. Nyasia Black MD LAB - CHEMISTR Y ORDERABLES Performing Organization Address City/State/[place] Co de Phone Number [facility] [address] [place] [address] Care Teams International Tax Manager Relationship Specialty Start Date End Date Nyasia Arauz MD [address] [facility] [place] [address] PCP - General Family Medicine 01/24/24
--- OUTSIDE RECORDS SUMMARY | 2024-07-17 07:44 | XMS_ITS | Referral Summary ---
Author Organization [facility] [employer] ([employer]) Address [address] [place] [address] Care Team Providers Care Dispatcher Service Name Role Phone Nyasia Arauz MD Primary Care Provider [phone] Source Comments [facility],non-owned Affiliates and Associated Physician Practices is amultiple site organization consisting of ambulatory clinics and hospital sitesin [place], [place], [place] and [place]. This disclosure is being madepursuant to the Care Everywhere program and may not contain all information available regarding this patient. Last updated 18.[facility] [employer] Allergies Active Allergy Reactions Criticality Noted Date Comments Zolpidem Psychiatric 10/01/2013 Codeine Nausea and/or Vomiting 10/01/2013 Hydrocodone Nausea and/or Vomiting 10/30/2013 Medications * Be aware that medications may not be up to date on this document. Alwaysverify current medications with the patient. Medication Sig Dispensed Refills Start Date End Date Status lansoprazole (PREVACID) 30 MG capsule Take 30 mg by mouth 2 times daily,before breakfast and supper. Active brexpiprazole (REXULTI) 1 MG tablet Take 3 mg by mouth at bedtime Active cetirizine (ZYRTEC) 10 MG tablet Take 1 (one) tablet by mouth once daily 04/22/2020 Active clonazePAM (KLONOPIN) 0.5 MG tablet Take 1 (one) tablet by mouth as needed 06/11/2019 Active gabapentin (NEURONTIN) 300 MG capsule Take 300 mg by mouth once daily Active rOPINIRole (REQUIP) 0.5 MG tablet Take 0.5 mg by mouth once daily Active erenumab-aooe (AIMOVIG) 70 MG/ML auto injector pen Inject 70 mg subcutaneously 04/08/2021 Active fluticasone propionate (FLONASE) 50 MCG/ACT nasal spray 11/26/2020 Active ibuprofen (MOTRIN) 800 MG tablet ibuprofen 800 mg tablet TAKE 1 TABLET BY MOUTH EVERY 8 HOURS Active ondansetron, disintegrating, (ZOFRAN ODT) 4 MG tablet 02/17/2021 Active lithium carbonate (ESKALITH) 600 MG capsule 10/11/2021 Active cyclobenzaprine (FLEXERIL) 10 MG tablet cyclobenzaprine 10 mg tablet Active pantoprazole EC (PROTONIX) 40 MG tablet pantoprazole 40 mg tablet,delayed release TAKE 1 TABLET BY MOUTH ONCE DAILY Active carvedilol (Coreg) 12.5 MG tablet 01/09/2024 Active OXcarbazepine (Trileptal) 150 MG tablet 08/22/2023 Active Atogepant (Qulipta) 10 MG TABS Active atomoxetine (Strattera) 10 MG capsule Take by mouth every morning Active clobetasol (Temovate) 0.05 % creamIndications:P soriasis Apply to affected areas of skin two times per day as needed to arms and legs for psoriasis 60 g 1 01/24/2024 Active clobetasol (Temovate) 0.05 % solutionIndication s:Psoriasis Apply to affected areas of skin two times per day as needed to scalp for psoriasis 50 mL 1 01/24/2024 Active Active Problems Patient Care Coordination No te Formatting of this note migh t be different from the original. TIMMY has tried several times to reach pt to schedule Nexplanon. No return calls from pt. No further attempts will be made. Problem Noted Date Diagnosed Date PCOS (polycystic ovarian syndrome) 10/14/2021 History of gestational diabetes 10/14/2021 Overweight 10/14/2021 Intractable migraine with aura without status mi grainosus 01/13/2021 Overview (10/14/2021): Last Assessment & Plan: Patient describes a lifelong history of episodic [...] recommendation. I will refer her to Ms. Markseduin for consideration of botulinum toxin. Acanthosis nigricans 05/12/2020 Anxiety 05/12/2020 Depression 05/12/2020 Asthma 07/01/2014 Overview (05/12/2020): Overview: Was given an inhaler but doesn't use it. IBS (irritable bowel syndrome) 07/01/2014 Consider eligibility for Vu study 10/29/2013 Family history of liver disease 09/24/2013 Overview (09/24/2013): Patient reports multiple paternal family members with liver disease. Reports daughter also had genetic workup and carries the disease. One family member on liver transplant list currently. Unsure of disease name NAFLD (nonalcoholic fatty liver disease) 014 Overview (09/12/2021): 03/06/21 Fibroscan CAP 295, LSM 8.6 kPa Previous delivery x3 09/23/2013 Overview (09/24/2013): Initial for breech presentation, repeat x 2 Schizophrenia 09/23/2013 Overview (09/23/2013): Currently on Seroquel, Prozac, and atarax Resolved Problems Problem Noted Date Diagnosed Date Resolved Date Supervision of other high-risk 09/23/2013 09/12/2021 Overview (04/20/2015): ROSA MARIA from Dr. Puckett Dating: L=undoc 7 wga scan, c/w doc 24 wga scan Labs: O+/I/-/-, HIV NR Antibody: neg Hgb/Hct/Plt: HgbE: CF: Urine Cx: UDS: MJ GC/CT: Pap: Genetics: Anatomy: GCT: 134 GBS: negative Breast/bottle: Contraception: BTL Normal pap Habitual aborter, currently 09/23/2013 09/12/2021 Overview (09/24/2013): 8 SAB around 8 wga. D&C x 2-3, products sent for pathology once per patient. Unsure if any diagnosis Was on ASA until third trimester No additional workup Hx of delivery, currently 09/23/2013 09/12/2021 Immunizations Name Administration Dates Next Due Covid Moderna primary monovalent 12+ yr 0.5mL ,02/18/2021 INFLUENZA VACCINE 02/19/2021,03/19/2020 PNEUMOCOCCAL PPSV23 10/31/2013 TDAP (7yrs+) 10/01/2013 Social History Tobacco Use Types Packs/Day [...] T Respiratory Rate 16 08/13/2021 1:24 PM ASSEMBLY WORKER Oxygen Saturation 99% 08/13/2021 1:24 PM ASSEMBLY WORKER Inhaled Oxygen Concentration - - Weight 84.9 kg (187 lb 3.2 oz) 10/14/2021 10:46 AM CDT Height 168.9 cm (5' 6.5 ) 10/14/2021 10:46 AM CD T Body Mass Index 29.76 10/14/2021 10:46 AM CDT Functional Status Functional Status Response Date of Assess ment Is person deaf or have serious hearing difficult y? No 10/30/2013 Is person blind or have serious difficulty seezehra g? No 10/30/2013 Does person have serious dif ficulty walking/climbing stairs? No 10/30/2013 Does person have difficulty dressing/bathing? No 10/30/2013 Does person have difficulty doing errands alone? No 10/30/2013 Cognitive Status Response Date of Assessm ent Does person have difficulty concentrating/remembering/making decisions? No 10/30/2013 Plan of Treatment Not on file Goals Goal Patient Goal Type Associated Problems Recent Progress Patient-Stated? Author Safety General On track( 1:56 PM ASSEMBLY WORKER) Keyonna Loo RN Note: Expected end date: ongoing Interventions: Be aware of medications that could predispose you to falling Wear glasses/hearing aid Keep personal items within easy reach Medication Management General On track( 1:56 PM ASSEMBLY WORKER) Keyonna Loo RN Note: Expected end date: ongoing Interventions: Let your doctor know right away about any changes in your medications Make sure to request a refill of your medication at least one week prior to your last dose Try the following to manage nausea: Relax by doing activities that you enjoy Plan when to eat and drink Eat small meals and snacks Have food and drinks that are warm or cool Procedures Procedure Name Priority Date/Time Associated Diagnosis Comments HEPATITIS C RNA QUANTITATIVE Routine 07/01/2014 1:01 PM ASSEMBLY WORKER HPV DNA PROBE HI RISK + LOW RISK PANEL Routine 12/10/2013 3:16 PM CDT Supervision of other high-risk , unspecified trimester from Last 3 Months or Most Recently Relevant to Health Maintenance Results * HEPATITIS C RNA QUANTITATIVE PCR (07/01/2014 1:01 PM ASSEMBLY WORKER) Hepatitis C Virus RNA PCR Specimen: 1 ml Serum Reference: [id number] Test: Hepatitis C RT-PCR (Quantitative) RESULT Not Detected Reference Range Not Detected INTERPRETATION The quantitative Hepatitis C viral RNA RT-PCR determination was performed on a serum sample and is reported in IU/ml. Hepatitis C viral RNA was not detected. COMMENT The Hepatitis C (HCV) viral RNA analysis utilized a serum sample, real-time reverse medical transcription supervisor PCR, and is reported as Not Detected/Detected [...] the isolation of HCV RNA with reverse medical transcription supervisor of genomic HCV RNA followed by real-time PCR in the presence of a reference standard RNA. ??The standard ensures that RNA was isolated, that no general significant inhibitors of the RT-PCR process were present. This test was developed and its performance characteristics determined by the DNA Diagnostic Laboratory at [facility]. It has not been cleared or [...] complexity clinical laboratory testing. Test performed at [facility], [address] [place] [address] ??[phone] This case has been personally reviewed and interpreted by the attending (teaching) pathologist. Final Diagnosis performed by Murali Mackey PHD. Electronically signed 07/04/2014 [facility] ([facility]) Blood specimen (specimen) BLOOD SPECIMEN / Unknown 07/01/2014 1:01 PM ASSEMBLY WORKER 07/01/2014 2:20 PM ASSEMBLY WORKER Zeferino Alvarenga MD LAB - CHEM ISTRY ORDERABLES [facility] ([facility] * HPV DNA PROBE HI RISK + LOW RISK PANEL (12/10/2013 3:16 PM CDT) Human papillomavirus Low Risk Not Performed 12/19/2013 9:14 AM CDT [facility] Human papillomavirus High Risk Negative 12/19/2013 9:14 AM CDT [facility] Pathology/Cytolo gy ENTIRE ENDOCERVIX / Unknown Collection / Unknown 12/10/2013 3:16 PM CDT 12/19/2013 9:01 AM CDT Shaggy Martell MD LAB - MICROBIOLOGY O RDERABLES [facility] [address] [place] [address] from Last 3 Months or Most Recently Relevant to Health Maintenance Advance Directives * Full Code (Latest Code Status on File) Date Activated Date Inactivated Comments 10/30/2013 8:56 AM 11/03/2013 1:16 PM Care Teams Dispatcher Service Relationship Specialty Start Date End Date Nyasia Arauz MD [address] [facility] [place] [address] PCP - General Family Medicine 01/24/24
--- OUTSIDE RECORDS SUMMARY | 2024-07-17 07:44 | XMS_ITS | Clinical Summary ---
Author Organization [facility] Address [address] [place] [address] Care Team Providers Care Elementary Science Teacher Name Role Phone Mendez Pantoja MD Unavailable [phone] Nyasia Arauz MD Primary Care Provider [phone] Allergies Active Allergy Reactions Criticality Noted Date [...] 02/16/20 23 Active OneTouch Verio Flex meter [facility] 01/05/20 23 Active OneTouch Delica Plus Lancet 33 gauge [facility] 01/05/20 23 Active lithium 300 mg tablet/capsule [...] 1 WEEK AFTER LESIONS HAVE HEALED 11/09/19 Active pramipexole (MIRAPEX) 0.125 mg tablet 10/17/19 [...] 05/28/2024 busPIRone (BUSPAR) 15 mg tablet 05/28/20 Active losartan (COZAAR) 50 mg tablet 05/27/20 24 Active metoprolol tartrate (LOPRESSOR) 50 mg immediate release tablet Take 1 tablet (50 mg total) by mouth 2 (two) times a day 05/13/20 Active Microgestin 07/02, 21, 1-20 mg-mcg per [...] 07/22/2022 Assessment & Plan (07/22/2022 1:41 PM CONTINUOUS CRUSHER OPERATOR): The problem of recurrent insomnia is discussed. [...] sleeping better insomnia as written by the [employer]. I have also ordered a PSG Intractable chronic migraine without aura and without status migrainosus 04/29/2022 Hypersomnia 01/12/2022 Assessment & Plan (07/22/2022 1:39 PM CONTINUOUS CRUSHER OPERATOR): Sleep hygiene was discussed Assessment & Plan (01/12/2022 2:16 PM CDT): The patient is going to talk with her primary care physician regarding lab work. Snoring 11/17/2021 Assessment & Plan (07/22/2022 1:39 PM CONTINUOUS CRUSHER OPERATOR): Due to worsening symptoms of the snoring, [...] Ms. Markseduin for consideration of botulinum toxin. Anxiety 05/12/2020 [...] 03/06/21 Fibroscan CAP 295, LSM 8.6 kPa Encounters Date Type Department Care Team Description 05/28/2024 3:30 PM CONTINUOUS CRUSHER OPERATOR Office Visit [facility] Neurology [address] [place] [phone] Ana Bennett NP Intractable chronic migraine without aura and without status migrainosus (Primary Dx); Headache associated with sexual activity; Neck pain 05/01/2024 1:30 PM CONTINUOUS CRUSHER OPERATOR Procedure visit [facility] Neurology [address] [place] [address] [place] [phone] Ana Bennett NP Intractable chronic migraine without aura and without status migrainosus from Last 3 Months Immunizations Name Administration Dates Next Due Hep A / Hep B 01/30/2015,09/30/2014,08/30/2014 Influenza, Unspecified 02/19/2021,03/19/2020 Moderna SARS-CoV-2 Monovalen t Vaccination (12+ YRS) 04/06/2021,03/09/2021 Pneumococcal Polysaccharide PPV23 10/31/2013 Tdap 10/01/2013 Surgical History Surgery Date Site/Laterality Comments SECTION 2004, 2006, 2010, 2013 TUBAL LIGATION 06/13/2019 - 06/12/2020 ABLATION HEMORROIDECTOMY Medical History Medical History Date Comments Depression Bipolar 1 disorder (HCC) PTSD (post-traumatic stress disorder) Schizophrenia (HCC) Migraine Anxiety Asthma CHRISTINE (nonalcoholic steatohepatitis) IBS (irritable bowel syndrome) GERD (gastroesophageal reflux disease) Gastric reflux Siriasis Family History * Patient is adopted Medical History Relation Name Comments Alcohol abuse Father Jon fish COPD Father Jon fish Breast cancer Mother Ludmila guerrero Cancer Mother Ludmila guerrero Colon cancer Mother Ludmila guerrero Mental illness Mother Ludmila guerrero Uterine cancer Mother Ludmila guerrero Relation Name Status Comments Father Jon fish Mother Ludmila guerrero Social History Tobacco Use Types Packs/Day Years [...] on file Legal Sex Female 8:33 PM CONTINUOUS CRUSHER OPERATOR Gender Identity Female 08/06/2021 9:34 AM CONTINUOUS CRUSHER OPERATOR Sexual Orientation Straight 08/06/2021 9: 34 AM CONTINUOUS CRUSHER OPERATOR Occupation Industry Job Start Date Job End Date on disability Not on file Not on file Not on file Obstetrics History Last Filed Vital Signs Vital Sign Reading Time Taken Comments Blood Pressure 100/60 05/28/2024 3:33 PM CONTINUOUS CRUSHER OPERATOR Pulse 75 05/28/2024 3:33 PM CONTINUOUS CRUSHER OPERATOR Temperature 36.8 ??C (98.3 ??F) 04/11/2024 1:22 PM CD T Respiratory Rate 20 05/28/2024 3:33 PM CONTINUOUS CRUSHER OPERATOR Oxygen Saturation 97% 05/28/2024 3:33 PM CONTINUOUS CRUSHER OPERATOR Inhaled Oxygen Concentration - - Weight 77.1 kg (170 lb) 05/28/2024 3:33 PM CONTINUOUS CRUSHER OPERATOR Height 167.6 cm (5' 6 ) 05/28/2024 3:33 PM CONTINUOUS CRUSHER OPERATOR Body Mass Index 27.44 05/28/2024 3:33 PM CONTINUOUS CRUSHER OPERATOR Plan of Treatment Health Maintenance Due Date Last Done Comments Breast Cancer Screening-Mammogram 1982 Cervical Cancer Screening 1982 Depression Screening 1982 Hepatitis C Screening 1982 Varicella Vaccines (1 of 2 - 13+ 2-dose series) 08/18/1995 Regular Well Visit/Exam 18-64 2000 Pneumococcal vaccine <65 (2 of 2 - PCV) 10/31/2014 10/31/2013 DTaP/Tdap/Td Vaccine (2 - Td or Tdap) 10/02/2023 10/01/2013 Covid-19 Vaccine (3 - 2023-2 5 season) 2024 04/06/2021, 03/09/2021 Influenza Vaccine (#1) 2024 , 03/19/2020 HPV Vaccines Aged Out No longer eligi ble based on patient's age to complete this topic Procedures Procedure Name Priority Date/Time Associated Diagnosis Comments BOTOX INJECTION Routine 05/01/2024 1:30 PM CONTINUOUS CRUSHER OPERATOR Intractable chronic migraine without aura and without status migrainosus from Last 3 Months Results * Botox Injection (05/01/2024 1:30 PM CONTINUOUS CRUSHER OPERATOR) Narrative Za Pires - 05/01/2024 1:30 PM CONTINUOUS CRUSHER OPERATOR Za Pires ? 05/04/2024 ??4:20 PM Botox Injection Performed by: Ana Bennett NP Authorized by: Ana Bennett NP ?? [place] Protocol: Consent Given by: ??Patient Timeout: prior [...] Bennett NP Authorized by: Ana Bennett NP [place] Protocol: Consent Given by: Patient Timeout: prior to procedure the correct patient, procedure, and site wasverified Procedure Details - Botox Injection: Procedure Details: See Botox flow sheet for details on injection sitesand amounts. This can be found in Media and labeled [email or web address].PROCEDURE NOTES. Ana Bennett NP IN CLINIC/BEDSIDE ORDERABLES Final Result from Last 3 Months Insurance [facility] Care Teams Elementary Science Teacher Relationship Specialty Start Date End Date Nyasia Arauz MD [address] [place] [address] PCP - General Family Medicine 02/07/24 Mendez Pantoja MD [address] [place] [address] MEDICAL ONCOLOGY, [facility] [address] [place] [address] Medical Oncologist/Hematologis t Hematology and Oncology 02/10/23
--- OUTSIDE RECORDS SUMMARY | 2024-07-17 07:44 | XMS_ITS | Clinical Summary ---
Author Organization [facility] [employer] Address [address] [place] [address] Care Team Providers Care Surgical Sales Representative Name Role Phone Nyasia Arauz MD Primary Care Provider [phone] Source Comments [facility] [employer],non-owned Affiliates and Associated Physician Practices is amultiple site organization consisting of ambulatory clinics and hospital sitesin [place], [place], [place] and [place]. This disclosure is being madepursuant to the Care Everywhere program and may not contain all information available regarding this patient. Last updated 18.[facility] [employer] Allergies Active Allergy Reactions Criticality Noted Date [...] 02/19/2021,03/19/2020 PNEUMOCOCCAL PPSV23 10/31/2013 TDAP (7yrs+) 10/01/2013 Family History Medical History Relation Name Comments None Known Brother None Known Father None Known Maternal Aunt None Known Maternal Grandfather None Known Maternal Grandmother None Known Maternal Uncle Breast Cancer at or under ag e 50 Mother Cancer - Other Mother thyroid Colon Cancer at or under age 50 Mother Lupus Mother Liver Disease Other multiple famil y members on paternal side including daughter. Some family members on transplant list None Known Paternal Aunt None Known Paternal Grandfather None Known Paternal Grandmother None Known Paternal Uncle None Known Sister Asthma Neg Hx CVA Neg Hx Cancer - Breast Neg Hx Cancer - Skin, Melanoma Neg Hx Cancer - Skin, Non Melanoma Neg Hx Eczema Neg Hx Hemophilia Neg Hx Psoriasis Neg Hx Relation Name Status Comments Brother Father Maternal Aunt Maternal Grandfather Maternal Grandmother Maternal Uncle Mother Other Paternal Aunt Paternal Grandfather Paternal Grandmother Paternal Uncle Sister Social History Tobacco Use Types Packs/Day Years [...] T Respiratory Rate 16 08/13/2021 1:24 PM GROUP HOME MANAGER Oxygen Saturation 99% 08/13/2021 1:24 PM GROUP HOME MANAGER Inhaled Oxygen Concentration - - Weight 84.9 kg (187 lb 3.2 oz) 10/14/2021 10:46 AM CDT Height 168.9 cm (5' 6.5 ) 10/14/2021 10:46 AM CD T Body Mass Index 29.76 10/14/2021 10:46 AM CDT Plan of Treatment Health Maintenance Due Date Last Done Comments LIPID TESTING 1982 MAMMOGRAM 1982 HIV SCREENING 1997 HEPATITIS B VACCINE (1 of 3 - 19+ 3-dose series) 2001 PNEUMOCOCCAL VACCINE (2 of 2 - PCV) 10/31/2014 10/31/2013 PAP with HPV 12/10/2018 12/10/2013 DTAP/TDAP/TD VACCINES (2 - T d or Tdap) 10/02/2023 10/01/2013 COVID-19 VACCINE (2023-2 5 season) 2024 04/06/2021, 03/16/2021, 02/18/2021 INFLUENZA VACCINE (#1) 2024 , 03/19/2020 DEPRESSION SCREENING 06/13/2024 ZOSTER VACCINE (1 of 2) 2032 HEPATITIS C SCREENING Completed 07/01/2014 , 09/24/2013 HIB VACCINE Aged Out No longer eligi ble based on patient's age to complete this topic HPV VACCINE Aged Out No longer eligi ble based on patient's age to complete this topic MENINGOCOCCAL (Group B) VACCINE Aged Out No longer eligible b ased on patient's age to complete this topic MENINGOCOCCAL VACCINE Aged Out No alyssa jeff eligible based on patient's age to complete this topic Goals Goal Patient Goal Type Associated Problems Recent Progress Patient-Stated? Author Safety General On track( 022 1:56 PM GROUP HOME MANAGER) Keyonna Loo, RN Note: Expected end date: ongoing Interventions: Be aware of medications that could predispose you to falling Wear glasses/hearing aid Keep personal items within easy reach Medication Management General On track( 022 1:56 PM GROUP HOME MANAGER) Keyonna Loo RN Note: Expected end date: [...] C RNA QUANTITATIVE Routine 07/01/2014 1:01 PM GROUP HOME MANAGER HPV DNA PROBE HI RISK + LOW RISK PANEL Routine 12/10/2013 3:16 PM CDT Supervision of other high-risk , unspecified trimester from Last 3 Months or Most Recently Relevant to Health Maintenance Results * HEPATITIS C RNA QUANTITATIVE PCR (07/01/2014 1:01 PM GROUP HOME MANAGER) Pathologist [facility] Hepatitis C Virus RNA PCR Specimen: 1 ml Serum Reference: [id number] Test: Hepatitis C RT-PCR (Quantitative) RESULT Not Detected Reference Range Not Detected INTERPRETATION The quantitative Hepatitis C viral RNA RT-PCR determination was performed on a serum sample and is reported in IU/ml. Hepatitis C viral RNA was not detected. COMMENT The Hepatitis C (HCV) viral RNA analysis utilized a serum sample, real-time reverse tile ditcher PCR, and is reported as Not Detected/Detected [...] the isolation of HCV RNA with reverse tile ditcher of genomic HCV RNA followed by real-time PCR in the presence of a reference standard RNA. ??The standard ensures that RNA was isolated, that no general significant inhibitors of the RT-PCR process were present. This test was developed and its performance characteristics determined by the DNA Diagnostic Laboratory at [facility]. It has not been cleared or approved [...] complexity clinical laboratory testing. Test performed at [facility], [address] [place] [phone] This case has been personally reviewed and interpreted by the attending (teaching) pathologist. Final Diagnosis performed by Murali Mackey PHD. Electronically signed 07/04/2014 [facility] ([facility]) Blood specimen (specimen) BLOOD SPECIMEN / Unknown 07/01/2014 1:01 PM GROUP HOME MANAGER 07/01/2014 2:20 PM GROUP HOME MANAGER Zeferino Alvarenga MD LAB - CHEM ISTRY ORDERABLES [facility] ([facility]) * HPV DNA PROBE HI RISK + LOW RISK PANEL (12/10/2013 3:16 PM CDT) Human papillomavirus Low Risk Not Performed 12/19/2013 9:[address] [facility] Human papillomavirus High Risk Negative 12/19/2013 9:[address] [facility] Pathology/Cytolo gy ENTIRE ENDOCERVIX / Unknown Collection / Unknown 12/10/2013 3:16 PM CDT 12/19/2013 9:01 AM CDT Shaggy Martell MD LAB - MICROBIOLOGY O RDERABLES [facility] [address] [place] [address] from Last 3 Months or Most Recently Relevant to Health Maintenance Advance Directives * Full Code (Latest Code Status on File) Date Activated Date Inactivated Comments 10/30/2013 8:56 AM 11/03/2013 1:16 PM Care Teams Surgical Sales Representative Relationship Specialty Start Date End Date Nyasia Arauz MD [address] [facility] [place] [id number] PCP - General Family Medicine 01/24/24
--- OUTSIDE RECORDS SUMMARY | 2024-07-17 07:44 | XMS_ITS | Data Portability ---
Author Organization [facility] [employer] , [facility] Address [address] [place] [address] Assessment No assessment recorded. Plan of Treatment Reminders Order Date Submit Date Provider Last Modified By Organization Details Last Modified Time Details Appointments None recorded. Lab biopsy, tissue 2021 022 [facility], [address] [facility], [place], [address], 15:22:17 Referral None recorded. Procedures None recorded. Surgeries excision, sebaceous cyst (SURG) 2021 022 [email or web address] Not available 19:20:55 Imaging None recorded. Medication Orders None recorded. Patient TargetsNo targets recorded. Patient InstructionsNo instructions recorded. Reason for Referral None Reported. Results Created Date Observation Date Name Description Value Unit Range Abnormal Flag Note LastModifiedBy Organization Detail LastModifiedTime 09/19/1909/23/2021 TISSU E PATHO LOGY pathologist Becky bautista M.D., Board Certi fied in [place] topat holog y, Clini manuel and Anato aminata Patho logy. Patho logis t Phone : [phone] Clien t Servi chela Phone : [phone] (elec troni c signa juan) Not Available [employer] [facility] [address] , [place], [address], 09/23/2021 15:22:17 09/19/19 22 09/23/2021 TISSU E PATHO LOGY A source Skin, vulva , biops y: Not Available [employer] [facility] [address] [place], [address], 09/23/2021 15:22:17 09/19/1909/23/2021 TISSU E PATHO LOGY A gross description Speci men is recei alan in forma rell, label ed with multi ple patie nt ident ifier (s) and consi sts of one piece (s) of tissu e measu ring 0.8 x 0.4 x 0.2 cm, irreg ular in shape and stahl-g ray in color . The umair ns are inked green . The speci men is trise cted and entir elmer submi tted in one casse tte(s ). Gross exam( s) perfo rmed at: [email or web address] [place] [address] [place] [address] [place]Y, [place] [address] Labor atory Direc tor: JAIR Pulido MD Not Available [employer] [facility] [address] , [place], [address], 09/23/2021 15:22:17 09/19/19 22 09/23/2021 TISSU E PATHO LOGY A diagnosis - Abund ant surfa ce kerat in, consi stent with cyst michelet nts. Not Available [facility] [address] [place], [address], 09/23/2021 15:22:17 Result Notes None recorded. Procedures Surgical History Date Name Laterality Status Provider Name and Address Organization Details Recorded Time 09/19/19 Vulvar Biopsy completed Ludmila Crockett DO [facility], [place], [address], [facility] 09/18/2021 13:39:12 09/01/19 Date of Last Pap Smear completed Kimberly Barron [facility] 09/18/2021 11:46:06 section completed [facility] 09/18/2021 12:03:14 ligation of fallopian tube completed [facility] 09/18/2021 12:03:36 Hysteroscopy ablation completed [facility] 09/18/2021 12:03:43 Imaging Results None recorded. Procedure Notes None recorded. Medical Equipment None Reported. Allergies Allergen ID Allergen Name Allergen Category Reaction Reaction Severity Criticality Documentation Date Start Date Code Code System Note Provider Name and Address Organization Details Recorded Time 070597 codeine medicatio n nausea Not available Not available 09/18/2021 2670 RxNorm Not Available Not Available Not Available 599285 Ambien medicatio n hallucina tions Not available Not available 09/18/2021 95418 5 RxNorm Not Available Not Available Not Available Medications Name Sig Start Date Stop Date Status Note LastModified by Organization Details LastModified Time cyclobenzap rine 10 mg tablet active Not Available Not Available Not Available clonidine HCl 0.1 mg tablet 09/18 completed Not Available Not Available Not Available fexofenadin e 60 mg tablet 09/18 completed Not Available Not Available Not Available clonazepam 0.5 mg tablet TAKE 1 TABLET BY MOUTH THREE TIMES DAILY NEEDED FOR ANXIETY active Not Available Not Available No t Available medroxyprog esterone 5 mg tablet TAKE 1 TABLET BY MOUTH EVERY DAY active Not Available Not Available No t Available clonazepam 1 mg tablet 09/18 completed Not Available Not Available Not Available topiramate 25 mg tablet 09/18 completed Not Available Not Available Not Available lithium carbonate 150 mg capsule 09/18 completed Not Available Not Available Not Available zonisamide 100 mg capsule 09/18 completed Not Available Not Available Not Available oxycodone-a cetaminophe n 5 mg-325 mg tablet TAKE 1 TABLET BY MOUTH EVERY 6 TO 8 HOURS NEEDED active Not Available Not Available No t Available propranolol 40 mg tablet 09/18 completed Not Available Not Available Not Available ropinirole 0.25 mg tablet TAKE 1 TABLET BY MOUTH ONCE DAILY AT BEDTIME active Not Available Not Available No t Available lithium carbonate 300 mg capsule active Not Available Not Available Not Available benzonatate 100 mg capsule TAKE 1 CAPSULE BY MOUTH EVERY 8 HOURS NEEDED 09/18 completed Not Available Not Available Not Available rizatriptan 10 mg disintegrat ing tablet 09/18 completed Not Available Not Available Not Available pantoprazol e 40 mg tablet,capri yed release TAKE 1 TABLET BY MOUTH ONCE DAILY active Not Available Not Available No t Available gabapentin 300 mg capsule TAKE 1 CAPSULE BY MOUTH ONCE DAILY IN THE MORNING AND THEN TAKE 2 CAPS AT BEDTIME active Not Available Not Available No t Available methylpredn isolone 4 mg tablets in a dose pack 09/18 completed Not Available Not Available Not Available ondansetron 4 mg disintegrat ing tablet 09/18 completed Not Available Not Available Not Available topiramate 100 mg tablet 09/18 completed Not Available Not Available Not Available fluticasone propionate 50 mcg/actuati on nasal spray,suspe nsion active Not Available Not Available Not Available naproxen 500 mg tablet 09/18 completed Not Available Not Available Not Available topiramate 50 mg tablet 09/18 completed Not Available Not Available Not Available ciprofloxac in active Not Available Not Available Not Available desvenlafax ine succinate ER 50 mg tablet,exte nded release 24 hr TAKE 1 TABLET BY MOUTH ONCE DAILY active Not Available Not Available No t Available lidocaine 5 % topical ointment 09/18 completed Not Available Not Available Not Available Rexulti 3 mg tablet TAKE 1 TABLET BY MOUTH ONCE DAILY active Not Available Not Available No t Available Viberzi 100 mg tablet active Not Available Not Available No t Available Procto-Med HC 2.5 % topical cream perineal applicator 09/18 completed Not Available Not Available Not Available TRUEplus Pen Needle 31 gauge x 5/16 USE PEN NEEDLE DAILY SUBCUTANO USLY WITH VICTOZA 09/18 completed Not Available Not Available Not Available Aimovig Autoinjecto r 70 mg/mL subcutaneou s auto-inject or INJECT ONE MILLIITER SUB-Q EVERY 30 DAYS active Not Available Not Available No t Available Vitals Date Recorded Body height Body mass index (BMI) Body weight Body temperature Systolic blood pressure Diastolic blood pressure Provider Name and Address Organization Details Last Updated DateTime 2 170.18 cm 29.7 kg/m2 52619.3 9 g 97 [degF] 118 mm[Hg] 70 mm[Hg] Kimberly Barron [facility] 2 11:40:14 Social History Question Answer Notes LastModified by Organizat ion Details LastModified Time Tobacco Smoking Status Never Smoker Kimberly middleton, [facility] 09/18/2021 11:48:55 What Is Your Level Of Alcohol Consumption? None [email or web address] Information not available 09/18/2021 Are You Blind Or Do You Have Difficulty Seeing? No Information not available 09/18/2021 Are You Currently Employed? No Information not available 09/18/2021 Are You Deaf Or Do You Have Serious Difficulty Hearing? No Information not available 09/18/2021 What Type Of Diet Are You Following? REGULAR Information not available 09/18/2021 How Many Children Do You Have? 5 Information not available 09/18/2021 What Is Your Relationship Status? [email or web address] Information not available 09/18/2021 Are You Sexually Active? Yes [email or web address] Information not available 09/18/2021 Do You Use Any Illicit Or Recreational Drugs? No Information not available 09/18/2021 Do You Or Have You Ever Used Any Other Forms Of Tobacco Or Nicotine? No Information not available 09/18/2021 Sex: Unknown Functional Status Question Answer Note LastModified by Organization D etails LastModified Time What is your exercise level? None Information not available 09/18/2021 Mental Status None recorded. Family History Relationship Description Onset Age of this Age Resolved Age Notes LastModified by Organization Details LastModified Time Mother Neoplasm of uterine cervix [email or web address] Not available 2021 12:04:11 Mother Malignant neoplasm of female breast [email or web address] Not available 2021 12:04:37 Mother Family history of cancer of colon 47 [email or web address] Not available 2021 12:04:56 Mother Family history of malignant neoplasm of thyroid [email or web address] Not available 2021 12:05:30 Medical History No medical history recorded. Gynecological History Statement/Question Response Date of Last Pap Smear 08/31/2021 Duration of Flow (days) 28 Current Control Method Tubal Ligat ion Age at Menarche 15 Date of LMP 08/26/2021 Obstetrics History GPAL:G 10 P 0 0 5 5 Type Value Spontaneous 5 Living 5 Total 10 Past Encounters Encounter ID Performer Location Encounter Start Date Encounter Closed Date Diagnosis/Indication Diagnosis SNOMED-CT Code Diagnosis ICD10 Code Diagnosis Note [id number] Ludmila Crockett DO [facility] [address] [place] [address] 09/18/2021 11:34:05 09/18/2021 12:35:12 Epidermoid cyst of skin 566861031 L72.3 Health Concerns Section Related Observation LastModified by Organization Detai ls LastModified Time None Recorded Concern Status LastModified by Organization Details LastModified Time None Recorded Advance Directives Directive None Recorded Payers Encounter Date Sequence Insurance Name Policy Number Policy Lopez Covered Member ID Lopez Member ID Guarantor Name 09/18/2021 1 [facility] (MEDICAID HMO) [id number] Blanquita Chaney [id number] Blanquita Chaney Notes Date Note Type Note Provider Name and Address Organization Details Recorded Time 09/18/2021 text/html Patient has a palpable lump left labia, states that it is painful and is requesting removal Ludmila Crockett DO [address] [facility], [place], [address], [facility] 09/18/2021 13:41:12 OBGyn Episode No OBEpisode recorded.
[2024-07-17 08:07] VITALS: BP 115/67; PULSE 55; RESP 14; TEMP 36.4; O2SAT 98
[2024-07-17 08:36] VITALS: BP 127/78; PULSE 65; RESP 19; O2SAT 97
[2024-07-17 08:41] VITALS: BP 121/68; PULSE 64; RESP 20; O2SAT 98
[2024-07-17] MEDS: LIDOCAINE 1% PF INJ 5 ML VIAL 3.5 ML INFILTRATE (08:43)
[2024-07-17] MEDS: BETAMETHASONE SODIUM PHOSPHATE PF INJ 6 MG/ML VIAL INFILTRATE (08:43)
[2024-07-17 08:47] VITALS: BP 119/69; PULSE 57; RESP 15; O2SAT 100
== END 2024-07-17 08:57 ==
LOC: ASC 07:41
PROVIDERS: PCP Family Medicine; Visit Provider Anesthesiology Pain Medicine
PROC: (CPT 62321; principal; 2024-07-17 08:30)
DX: M48.02 Spinal stenosis, cervical region (principal); M54.12 Radiculopathy, cervical region; G89.29 Other chronic pain
CPT/HCPCS: 62321; 99199

== ENCOUNTER 2024-09-03 11:20 | Outpatient (CLI) | payer OTHER, SELFPAY ==
[2024-09-03 12:09] LABS: Rheumatoid Factor < 12.0 IU/ML (<12)
[2024-09-03 12:15] LABS: Alanine Aminotransferase 22 U/L (6-35); Albumin Level 4.3 g/dL (3.5-5.1); Alkaline Phosphatase 43 U/L (38-126); Anion Gap 6 mmol/L (4-12); Aspartate Amino Transferase 23 U/L (14-36); Bilirubin,Total 0.4 mg/dL (0.2-1.3); Blood Urea Nitrogen 10 mg/dL (7-17); Calcium 8.8 mg/dL (8.4-10.2); Carbon Dioxide 29 mmol/L (22-30); Chloride 97 mmol/L (98-107); Estimated Glomerular Filt Rate > 60; Glucose 94 mg/dL (65-110); Potassium 4.7 mmol/L (3.4-5.0); Sodium 132 mmol/L (137-145)
[2024-09-03 12:25] LABS: Erythrocyte Sedimentation Rate 5 mm/hr (0-20)
[2024-09-03 12:32] LABS: Free T4 Free Thyroxine 0.72 ng/dL (0.78-2.19)
[2024-09-03 12:44] LABS: Thyroid Stimulating Hormone 0.506 uIU/mL (0.465-4.680)
--- OUTSIDE RECORDS SUMMARY | 2024-09-03 13:25 | XMS_ITS | Referral Summary ---
Author Organization [facility] Address [address] [place] [address] Care Team Providers Care Hazardous Materials Analyst Name Role Phone Mendez Pantoja MD Unavailable [phone] Nyasia Arauz MD Primary Care Provider [phone] Encounters Date Type Department Care Team Description 07/30/2024 1:00 PM ELECTRICIAN OFFICE Procedure visit [facility] Neurology [address] [facility] [place] [address] Ana Bennett NP Intractable chronic migraine [...] vomiting 20 tablet 1 01/08/20 23 Active Additional Information Patient not taking.Reported on 07/30/2024 lumateperone (Caplyta) 42 mg capsule 02/16/20 23 Active OneTouch Verio test strips strip 02/16/20 23 Active OneTouch Verio Flex meter [facility] 01/05/20 23 Active OneTouch Delica Plus Lancet 33 gauge [facility] 01/05/20 23 Active lithium 300 mg tablet/capsule Activ e Strattera 40 mg capsule 60 mg 03/10/20 23 Active rimegepant (NURTEC ODT) tablet,disintegrat ing Take 1 tablet (75 mg total) by mouth daily as needed (migraine) 8 tablet 5 07/20/19 24 Active Additional Information Patient not taking.Reported on 07/30/2024 ondansetron ODT (ZOFRAN-ODT) 8 mg disintegrating tablet Take 1 tablet (8 mg total) by mouth every 12 (twelve) hours as needed for nausea or vomiting 20 tablet 1 07/20/19 24 Active rimegepant (Nurtec ODT) tablet,disintegrat ing Take 1 tablet (75 mg total) by mouth daily 4 tablet 07/28/19 24 Active Additional Information Patient not taking.Reported on 07/30/2024 naproxen (NAPROSYN) 375 mg tablet Take 1 [...] Active Additional Information Patient not taking.Reported on 07/30/2024 busPIRone (BUSPAR) 15 mg tablet 05/28/20 24 Active losartan (COZAAR) 50 mg tablet 05/27/20 24 Active metoprolol tartrate (LOPRESSOR) 50 mg immediate release tablet Take 1 tablet (50 mg total) by mouth 2 (two) times a day 05/13/20 24 Active Microgestin 1/, 21, 1-20 mg-mcg per tablet TAKE 1 TABLET BY MOUTH ONCE DAILY IN CONTINUOUS MANNER SKIPPING PLACEBO PILLS 05/22/20 24 Active predniSONE (DELTASONE) 20 mg tablet TAKE 1 TABLET BY MOUTH ONCE DAILY FOR 5 DAYS 05/02/20 24 Active atogepant 30 mg tablet Take 30 mg by mouth daily 30 tablet 5 05/29/20 24 Active clobetasoL (TEMOVATE) 0.05 % external solution Apply to affected areas of skin two times per day as needed to scalp for psoriasis 08/13/20 24 Active doxepin (SINEquan) 10 mg capsule 06/11/20 24 Active Active Problems Problem Noted Date Diagnosed Date Headache associated with sexual activity 024 Neck pain 12/07/2023 Leukocytosis 02/21/2023 Primary insomnia 07/22/2022 Assessment & Plan (07/22/2022 1:41 PM ELECTRICIAN OFFICE): The problem of recurrent insomnia is discussed. [...] sleeping better insomnia as written by the [place] [employer]. I have also ordered a PSG Intractable chronic migraine without aura and without status migrainosus 04/29/2022 Hypersomnia 01/12/2022 Assessment & Plan (07/22/2022 1:39 PM ELECTRICIAN OFFICE): Sleep hygiene was discussed Assessment & Plan (01/12/2022 2:16 PM CDT): The patient is going to talk with her primary care physician regarding lab work. Snoring 11/17/2021 Assessment & Plan (07/22/2022 1:39 PM ELECTRICIAN OFFICE): Due to worsening symptoms of the snoring, [...] Fibroscan CAP 295, LSM 8.6 kPa Immunizations Immunization Administration Dates Next Due Hep A / [...] on file Legal Sex Female 8:33 PM ELECTRICIAN OFFICE Gender Identity Female 08/06/2021 9:34 AM ELECTRICIAN OFFICE Sexual Orientation Straight 08/06/2021 9: 34 AM ELECTRICIAN OFFICE Occupation Industry Job Start Date Job End Date on disability Not on file Not on file Not on file Last Filed Vital Signs Vital Sign Reading Time Taken Comments Blood Pressure 100/60 05/28/2024 3:33 PM ELECTRICIAN OFFICE Pulse 75 05/28/2024 3:33 PM ELECTRICIAN OFFICE Temperature 36.8 C (98.3 F) 04/11/2024 1:22 PM CDT Respiratory Rate 20 05/28/2024 3:33 PM ELECTRICIAN OFFICE Oxygen Saturation 97% 05/28/2024 3:33 PM ELECTRICIAN OFFICE Inhaled Oxygen Concentration - - Weight 77.1 kg (170 lb) 07/30/2024 12:54 PM ELECTRICIAN OFFICE Height 167.6 cm (5' 5.98 ) 07/30/2024 12:[address] Body Mass Index 27.45 07/30/2024 12:54 PM ELECTRICIAN OFFICE Plan of Treatment Not on file Procedures Procedure Name Priority Date/Time Associated Diagnosis Comments BOTOX INJECTION Routine 07/30/2024 1:00 PM ELECTRICIAN OFFICE Intractable chronic migraine without aura and without status migrainosus from Last 3 Months Results * Botox Injection (07/30/2024 1:00 PM ELECTRICIAN OFFICE) Narrative Za Pires - 07/30/2024 1:00 PM ELECTRICIAN OFFICE Za Pires 07/30/2024 1:19 PM Botox Injection Performed by: Ana Bennett NP Authorized by: Ana Bennett NP [place] Protocol: Consent Given by: Patient Timeout: prior to procedure the correct patient, procedure, and site was verified Procedure Details - Botox Injection: Procedure Details: See Botox flow sheet for details on injection sites and amounts. This can be found in Media and labeled [facility] NEURO.BOTOX.PROCEDURE NOTES. Ana Bennett NP IN CLINIC/BEDSIDE ORDERABLES Final Result from Last 3 Months Insurance [facility] Care Teams Hazardous Materials Analyst Relationship Specialty Start Date End Date Nyasia Arauz MD [address] [place] [address] PCP - General Family Medicine 02/07/24 Mendez Pantoja MD [facility] MEDICAL ONCOLOGY, [facility] [address] [place] [address] Medical Oncologist/Hematologis t Hematology and Oncology 02/10/23
--- OUTSIDE RECORDS SUMMARY | 2024-09-03 13:25 | XMS_ITS | Clinical Summary ---
Author Organization [facility] [employer] Address [address] [place] [address] Care Team Providers Care Chief Of Party Name Role Phone Nyasia Arauz MD Primary Care Provider [phone] Source Comments [facility] [employer],non-owned Affiliates and Associated Physician Practices is amultiple site organization consisting of ambulatory clinics and hospital sitesin [place], [place], [place] and [place]. This disclosure is being madepursuant to the Care Everywhere program and may not contain all information available regarding this patient. Last updated 18.[facility] [employer] Allergies Active Allergy Reactions Criticality Noted Date [...] 82 10/14/2021 10:46 AM CDT Temperature 36.8 C (98.3 F) 08/13/2021 1:24 PM INFORMATION TECHNOLOGY ANALYST Respiratory Rate 16 08/13/2021 1:24 PM INFORMATION TECHNOLOGY ANALYST Oxygen Saturation 99% 08/13/2021 1:24 PM INFORMATION TECHNOLOGY ANALYST Inhaled Oxygen Concentration - - Weight 84.9 [...] d or Tdap) 10/02/2023 10/01/2013 COVID-19 VACCINE (4 - 2023-2 5 season) 2024 04/06/2021, 03/16/2021, 02/18/2021 INFLUENZA [...] complete this topic MENINGOCOCCAL (Group B) VACCINE SHARED DECISION-MAKING Aged Out No longer eligible based on patient's age to complete this topic MENINGOCOCCAL GROUPS A/C/Y/W VACCINE Aged Out No longer eligible b ased on patient's age to complete this topic Goals Goal Patient Goal Type Associated Problems Recent Progress Patient-Stated? Author Safety General On track( 022 1:56 PM INFORMATION TECHNOLOGY ANALYST) Keyonna Loo, RN Note: Expected end date: ongoing Interventions: Be aware of medications that could predispose you to falling Wear glasses/hearing aid Keep personal items within easy reach Medication Management General On track( 022 1:56 PM INFORMATION TECHNOLOGY ANALYST) Keyonna Loo, RN Note: Expected end date: [...] C RNA QUANTITATIVE Routine 07/01/2014 1:01 PM INFORMATION TECHNOLOGY ANALYST HPV DNA PROBE HI RISK + LOW RISK PANEL Routine 12/10/2013 3:16 PM CDT Supervision of other high-risk , unspecified trimester from Last 3 Months or Most Recently Relevant to Health Maintenance Results * HEPATITIS C RNA QUANTITATIVE PCR (07/01/2014 1:01 PM INFORMATION TECHNOLOGY ANALYST) Pathologist [facility] Hepatitis C Virus RNA PCR Specimen: 1 ml Serum Reference: [id number] Test: Hepatitis C RT-PCR (Quantitative) RESULT Not Detected Reference Range Not Detected INTERPRETATION The quantitative Hepatitis C viral RNA RT-PCR determination was performed on a serum sample and is reported in IU/ml. Hepatitis C viral RNA was not detected. COMMENT The Hepatitis C (HCV) viral RNA analysis utilized a serum sample, real-time reverse derrick worker well service PCR, and is reported as Not Detected/Detected (<50)/Quantity (IU/ml) or >35,000,000 IU/ml. The analytical sensitivity of the assay is 7 IU/ml (95% of samples with this HCV RNA level were detected). Values less than 7 IU/ml are reported as Not Detected (<7 IU/ml); values greater than 7 IU/ml and less than 50 IU/ml are reported as Detected (<50). The linear range is from 50 IU/ml to 35,000,000 IU/ml. Values greater than 35,000,000 IU/ml are reported as >35,000,000 IU/ml. The detection/quantita tion of HCV RNA in serum or plasma is based on the isolation of HCV RNA with reverse derrick worker well service of genomic HCV RNA followed by real-time PCR in the presence of a reference standard RNA. The standard ensures that RNA was isolated, that no general significant inhibitors of the RT-PCR process were present. This test was developed and its performance characteristics determined by the [facility] at [facility]. It has not been cleared or [...] complexity clinical laboratory testing. Test performed at [facility], [address] [place] [address] This case has been personally reviewed and interpreted by the attending (teaching) pathologist. Final Diagnosis performed by Murali Mackey PHD. Electronically signed 07/04/2014 [facility] ([place]) Blood specimen (specimen) BLOOD SPECIMEN / Unknown 07/01/2014 1:01 PM INFORMATION TECHNOLOGY ANALYST 07/01/2014 2:20 PM INFORMATION TECHNOLOGY ANALYST Zeferino Alvarenga MD LAB - CHEM ISTRY ORDERABLES [facility] ([facility]) * HPV DNA PROBE HI RISK + LOW RISK PANEL (12/10/2013 3:16 PM CDT) Human papillomavirus Low Risk Not Performed 12/19/2013 9:14 AM CDT [facility] Human papillomavirus High Risk Negative 12/19/2013 9:14 AM CDT [facility] Pathology/Cytolo gy ENTIRE ENDOCERVIX / Unknown Collection / Unknown 12/10/2013 3:16 PM CDT 12/19/2013 9:01 AM CDT Shaggy Martell MD LAB - MICROBIOLOGY O RDERABLES [facility] [address] [place] [address] from Last 3 Months or Most Recently Relevant to Health Maintenance Advance Directives * Full Code (Latest Code Status on File) Date Activated Date Inactivated Comments 10/30/2013 8:56 AM 11/03/2013 1:16 PM Care Teams Chief Of Party Relationship Specialty Start Date End Date Nyasia Arauz MD [address] [facility] [place] [id number] PCP - General Family Medicine 01/24/24
--- OUTSIDE RECORDS SUMMARY | 2024-09-03 13:25 | XMS_ITS | Clinical Summary ---
Author Organization [facility] Address [address] [place] [address] Care Team Providers Care Strategic Procurement Manager Name Role Phone Devante Suarez Primary Care Provider [phone] Allergies Active Allergy Reactions Criticality Noted Date [...] 70 12/06/2020 1:46 PM CDT Temperature 36.6 C (97.9 F) 12/06/2020 10:51 AM CDT Respiratory Rate 16 12/06/2020 1:46 PM CDT [...] patient's age to complete this topic Insurance [employer] Care Teams Strategic Procurement Manager Relationship Specialty Start Date End Date Devante Suarez DO [address] [phone] PCP - General FAMILY PRACTICE 12/06/20
--- OUTSIDE RECORDS SUMMARY | 2024-09-03 13:25 | XMS_ITS | Data Portability ---
Author Organization [facility] , [facility] Address [address] [place] [address] Assessment No assessment recorded. Plan of Treatment Reminders Order Date Submit Date Provider Last Modified By Organization Details Last Modified Time Details Appointments None recorded. Lab biopsy, tissue 2021 022 [facility], [address] [facility], [place], [address], 15:22:17 Referral None recorded. Procedures None recorded. Surgeries excision, sebaceous cyst (SURG) 2021 022 Not available 19:20:55 Imaging None recorded. Medication Orders None recorded. Patient TargetsNo targets recorded. Patient InstructionsNo instructions recorded. Reason for Referral None Reported. Results Created Date Observation Date Name Description Value Unit Range Abnormal Flag Note LastModifiedBy Organization Detail LastModifiedTime 09/19/1909/23/2021 TISSU E PATHO LOGY pathologist Becky bautista M.D., Board Certi fied in [place] topat holog y, Clini manuel and Anato aminata Patho logy. Patho logis t Phone : [phone] Clien t Servi chela Phone : [phone] (elec troni c signa juan) Not Available [facility] [address] , [place], [address], 09/23/2021 15:22:17 09/19/19 22 09/23/2021 TISSU E PATHO LOGY A source Skin, vulva , biops y: Not Available [facility] [address] [place], [address], 09/23/2021 15:22:17 09/19/1909/23/2021 TISSU E PATHO LOGY [...] ). Gross exam( s) perfo rmed at: [email or web address] [place] [address] [place] [address] AY, [place] [address] Labor atory Direc tor: JAIR Pulido MD Not Available [facility] [address] , [place], [address], 09/23/2021 15:22:17 09/19/19 22 09/23/2021 TISSU E PATHO LOGY A diagnosis - Abund ant surfa ce kerat in, consi stent with cyst michelet nts. Not Available [facility] [address] [place], [address], 09/23/2021 15:22:17 Result Notes None recorded. Procedures Surgical History Date Name Laterality Status Provider Name and Address Organization Details Recorded Time 09/19/19 Vulvar Biopsy completed Ludmila Crockett DO [facility], [place], [address], [employer] [facility] 09/18/2021 13:39:12 09/01/19 Date of Last Pap Smear completed Kimberly Barron [employer] [facility] 09/18/2021 11:46:06 section completed [employer] [facility] 09/18/2021 12:03:14 ligation of fallopian tube completed [employer] [facility] 09/18/2021 12:03:36 Hysteroscopy ablation completed [facility] 09/18/2021 12:03:43 Imaging Results None recorded. Procedure Notes None recorded. Medical Equipment None Reported. Allergies Allergen ID Allergen Name Allergen Category Reaction Reaction Severity Criticality Documentation Date Start Date Code Code System Note Provider Name and Address Organization Details Recorded Time 246424 codeine medicatio n nausea Not available Not available 09/18/2021 2670 RxNorm Not Available Not Available Not Available 292512 Ambien medicatio n hallucina tions Not available Not available 09/18/2021 92312 5 RxNorm Not Available Not Available Not [...] Updated DateTime 2 170.18 cm 29.7 kg/m2 27081.3 9 g 97 [degF] 118 mm[Hg] 70 mm[Hg] Kimberly Barron [employer] [facility] 2 11:40:14 Social History Question Answer Notes LastModified by Organizat ion Details LastModified Time Tobacco Smoking Status Never Smoker Kimberly middleton, [facility] 09/18/2021 11:48:55 What Is Your Level Of Alcohol Consumption? None [email or web address] Information not available 09/18/2021 Are You Blind Or Do You Have Difficulty Seeing? No Information not available 09/18/2021 Are You Currently Employed? No Information not available 09/18/2021 Are You Deaf Or Do You Have Serious Difficulty Hearing? No Information not available 09/18/2021 What Type Of Diet Are You Following? REGULAR Information not available 09/18/2021 How Many Children Do You Have? 5 [email or web address] Information not available 09/18/2021 What Is Your Relationship Status? [email or web address] Information not available 09/18/2021 Are You Sexually Active? Yes [email or web address] Information not available 09/18/2021 Do You Use [...] SNOMED-CT Code Diagnosis ICD10 Code Diagnosis Note [id number] Ludmila Crockett DO [facility] [address] [place] [address] 09/18/2021 11:34:05 09/18/2021 12:35:12 Epidermoid cyst of skin 241138087 L72.3 Health Concerns Section Related Observation LastModified by Organization Detai ls LastModified Time None Recorded Concern Status LastModified by Organization Details LastModified Time None Recorded Advance Directives Directive None Recorded Payers Encounter Date Sequence Insurance Name Policy Number Policy Lopez Covered Member ID Lopez Member ID Guarantor Name 09/18/2021 1 [facility] (MEDICAID HMO) [id number] Blanquita Chaney [id number] Blanquita Chaney Notes Date Note Type Note Provider Name and Address Organization Details Recorded Time 09/18/2021 text/html Patient has a palpable lump left labia, states that it is painful and is requesting removal Ludmila Crockett DO [address] [facility], [place], [address], [facility] 09/18/2021 13:41:12 OBGyn Episode No OBEpisode recorded.
--- OUTSIDE RECORDS SUMMARY | 2024-09-03 13:25 | XMS_ITS | Clinical Summary ---
Author Organization [facility] Address [address] [place] [address] Care Team Providers Care Radio Station Audio Engineer Name Role Phone Mendez Pantoja MD Unavailable [phone] Nyasia Arauz MD Primary Care Provider [phone] Allergies Active Allergy Reactions Criticality Noted Date [...] 02/16/20 23 Active OneTouch Verio Flex meter misc 01/05/20 23 Active OneTouch Delica Plus Lancet 33 gauge [facility] 01/05/20 23 Active lithium 300 mg tablet/capsule [...] times a day 05/13/20 24 Active Microgestin , 1-20 mg-mcg per tablet TAKE 1 TABLET [...] day as needed to scalp for psoriasis 01/24/20 24 Active doxepin (SINEquan) 10 mg capsule 06/11/20 24 Active Active Problems Problem Noted Date Diagnosed Date Headache associated with sexual activity 024 Neck pain 12/07/2023 Leukocytosis 02/21/2023 Primary insomnia 07/22/2022 Assessment & Plan (07/22/2022 1:41 PM IRRIGATOR HEAD): The problem of recurrent insomnia is discussed. [...] sleeping better insomnia as written by the [employer]. I have also ordered a PSG Intractable chronic migraine without aura and without status migrainosus 04/29/2022 Hypersomnia 01/12/2022 Assessment & Plan (07/22/2022 1:39 PM IRRIGATOR HEAD): Sleep hygiene was discussed Assessment & Plan (01/12/2022 2:16 PM CDT): The patient is going to talk with her primary care physician regarding lab work. Snoring 11/17/2021 Assessment & Plan (07/22/2022 1:39 PM IRRIGATOR HEAD): Due to worsening symptoms of the snoring, [...] Department Care Team Description 07/30/2024 1:00 PM IRRIGATOR HEAD Procedure visit [facility] Neurology [address] [place] [address] [place] [address] Ana Bennett NP Intractable chronic migraine without aura and without status migrainosus from Last 3 Months Immunizations Immunization Administration Dates Next Due Hep [...] on file Legal Sex Female 8:33 PM IRRIGATOR HEAD Gender Identity Female 08/06/2021 9:34 AM IRRIGATOR HEAD Sexual Orientation Straight 08/06/2021 9: 34 AM IRRIGATOR HEAD Occupation Industry Job Start Date Job End Date on disability Not on file Not on file Not on file Obstetrics History Last Filed Vital Signs Vital Sign Reading Time Taken Comments Blood Pressure 100/60 05/28/2024 3:33 PM IRRIGATOR HEAD Pulse 75 05/28/2024 3:33 PM IRRIGATOR HEAD Temperature 36.8 C (98.3 F) 04/11/2024 1:22 PM CDT Respiratory Rate 20 05/28/2024 3:33 PM IRRIGATOR HEAD Oxygen Saturation 97% 05/28/2024 3:33 PM IRRIGATOR HEAD Inhaled Oxygen Concentration - - Weight 77.1 kg (170 lb) 07/30/2024 12:54 PM IRRIGATOR HEAD Height 167.6 cm (5' 5.98 ) 07/30/2024 12:[address] Body Mass Index 27.45 07/30/2024 12:54 PM IRRIGATOR HEAD Plan of Treatment Health Maintenance Due Date [...] Comments BOTOX INJECTION Routine 07/30/2024 1:00 PM IRRIGATOR HEAD Intractable chronic migraine without aura and without status migrainosus from Last 3 Months Results * Botox Injection (07/30/2024 1:00 PM IRRIGATOR HEAD) Narrative Za Pires - 07/30/2024 1:00 PM IRRIGATOR HEAD Za Pires 07/30/2024 1:19 PM Botox Injection Performed by: Ana Bennett NP Authorized by: Ana Bennett NP Stephan Protocol: Consent Given by: Patient Timeout: prior to procedure the correct patient, procedure, and site was verified Procedure Details - Botox Injection: Procedure Details: See Botox flow sheet for details on injection sites and amounts. This can be found in Media and labeled [facility] NEURO.BOTOX.PROCEDURE NOTES. Ana Bennett NP IN CLINIC/BEDSIDE ORDERABLES Final Result from Last 3 Months Insurance Care Teams Radio Station Audio Engineer Relationship Specialty Start Date End Date Nyasia Arauz MD [address] [place] [address] PCP - General Family Medicine 02/07/24 Mendez Pantoja MD [address] [place] [address] MEDICAL ONCOLOGY, [facility] [address] [place] [address] Medical Oncologist/Hematologis t Hematology and Oncology 02/10/23
[2024-09-05 15:13] LABS: Anti Cyclic Citrullinated Pept <16 UNITS
== END 2024-09-03 11:21 | disposition home or self-care (01) ==
LOC: ANHLAB 11:22
PROVIDERS: PCP Family Medicine; Visit Provider Student in an Organized Health Care Education/Training Program
DX: F41.9 Anxiety disorder, unspecified (principal); I10 Essential (primary) hypertension; Z68.27 Body mass index [BMI] 27.0-27.9, adult; K76.0 Fatty (change of) liver, not elsewhere classified; R53.83 Other fatigue; M25.50 Pain in unspecified joint
CPT/HCPCS: 36415; 80053; 84439; 84443; 85652; 86038; 86200; 86430

== ENCOUNTER 2024-09-26 13:12 | Outpatient (CLI) | payer OTHER, SELFPAY ==
--- NOTE | ~2024-09-26 | MMUS_ITS ---
EXAMINATION: MM diagnostic saleem BI w tran, US breast RT limited HISTORY: Palpable right breast abnormality TECHNIQUE: Additional 3-D tomosynthesis images of the breasts were performed and synthetic 2-D images were generated. CAD analysis was submitted and interpreted. High resolution Limited right breast ult rasound was performed. COMPARISON: Comparison to multiple prior studies sequentially, with oldest reviewed study dated 11/26. BREAST PARENCHYMAL COMPOSITION: Not dense: There are scattered areas of fibroglandular density. FINDINGS: MAMMOGRAPHIC FINDINGS: There are no suspicious masses, calcifications or architectural distortion in either breast to sugges t malignancy. ULTRASOUND: Limited right breast ultrasound: Normal heterogeneous echotexture without focal solid or cystic mass. IMPRESSION: 1. No evidence for malignancy in either breast. 2. Recommend routine screening mammography in one year. Reviewed, dictated and finalized at location B. IMPRESSION: 1. No evidence for malignancy in either breast. 2. Recommend routine screening mammography in one year.
--- OUTSIDE RECORDS SUMMARY | 2024-09-26 14:16 | XMS_ITS | Referral Summary ---
Author Organization [facility] Address [address] [place] [address] Care Team Providers Care Diamond Finishing Supervisor Name Role Phone Mendez Pantoja MD Unavailable [phone] Nyasia Arauz MD Primary Care Provider [phone] Encounters Date Type Department Care Team Description 07/30/2024 1:00 PM THEATRICAL AGENT Procedure visit [facility] Neurology [address] [facility] [place] [facility] [address] [place] [address] Ana Bennett NP Intractable chronic [...] 02/16/20 23 Active OneTouch Verio Flex meter [facility] 01/05/20 23 Active OneTouch Delica Plus Lancet 33 gauge [facility] 01/05/20 23 Active lithium 300 mg tablet/capsule [...] 07/22/2022 Assessment & Plan (07/22/2022 1:41 PM THEATRICAL AGENT): The problem of recurrent insomnia is discussed. [...] sleeping better insomnia as written by the [place] [employer]. I have also ordered a PSG Intractable chronic migraine without aura and without status migrainosus 04/29/2022 Hypersomnia 01/12/2022 Assessment & Plan (07/22/2022 1:39 PM THEATRICAL AGENT): Sleep hygiene was discussed Assessment & Plan (01/12/2022 2:16 PM CDT): The patient is going to talk with her primary care physician regarding lab work. Snoring 11/17/2021 Assessment & Plan (07/22/2022 1:39 PM THEATRICAL AGENT): Due to worsening symptoms of the snoring, [...] on file Legal Sex Female 8:33 PM THEATRICAL AGENT Gender Identity Female 08/06/2021 9:34 AM THEATRICAL AGENT Sexual Orientation Straight 08/06/2021 9: 34 AM THEATRICAL AGENT Occupation Industry Job Start Date Job End Date on disability Not on file Not on file Not on file Last Filed Vital Signs Vital Sign Reading Time Taken Comments Blood Pressure 100/60 05/28/2024 3:33 PM THEATRICAL AGENT Pulse 75 05/28/2024 3:33 PM THEATRICAL AGENT Temperature 36.8 C (98.3 F) 04/11/2024 1:22 PM CDT Respiratory Rate 20 05/28/2024 3:33 PM THEATRICAL AGENT Oxygen Saturation 97% 05/28/2024 3:33 PM THEATRICAL AGENT Inhaled Oxygen Concentration - - Weight 77.1 kg (170 lb) 07/30/2024 12:54 PM THEATRICAL AGENT Height 167.6 cm (5' 5.98 ) 07/30/2024 12:[address] Body Mass Index 27.45 07/30/2024 12:54 PM THEATRICAL AGENT Plan of Treatment Not on file Procedures Procedure Name Priority Date/Time Associated Diagnosis Comments BOTOX INJECTION Routine 07/30/2024 1:00 PM THEATRICAL AGENT Intractable chronic migraine without aura and without status migrainosus from Last 3 Months Results * Botox Injection (07/30/2024 1:00 PM THEATRICAL AGENT) Narrative Za Pires - 07/30/2024 1:00 PM THEATRICAL AGENT Za Pires 07/30/2024 1:19 PM Botox Injection Performed by: Ana Bennett NP Authorized by: Ana Bennett NP [place] Protocol: Consent Given by: Patient Timeout: prior to procedure the correct patient, procedure, and site was verified Procedure Details - Botox Injection: Procedure Details: See Botox flow sheet for details on injection sites and amounts. This can be found in Media and labeled [facility] [email or web address].BOTOX.PROCEDURE NOTES. Ana Bennett NP IN CLINIC/BEDSIDE ORDERABLES Final Result from Last 3 Months Insurance [facility] Care Teams Diamond Finishing Supervisor Relationship Specialty Start Date End Date Nyasia Arauz MD [address] [place] [address] PCP - General Family Medicine 02/07/24 Mendez Pantoja MD [facility] MEDICAL ONCOLOGY, [facility] [address] [place] [address] Medical Oncologist/Hematologis t Hematology and Oncology 02/10/23
--- OUTSIDE RECORDS SUMMARY | 2024-09-26 14:16 | XMS_ITS | Clinical Summary ---
Author Organization [facility] Address [address] [place] [address] Care Team Providers Care Bell Maker Name Role Phone Devante Suarez Primary Care Provider [phone] Allergies Active Allergy Reactions Criticality Noted Date Comments Zolpidem Hallucinations 12/06/2020 Codeine Vomiting 12/06/2020 Immunizations Immunization Administration Dates Next Due MODERNA COVID-19 (12+) [...] Td or Tdap) 10/02/2023 10/01/2013 COVID-19 Vaccine (2023-2 5 season) 2024 04/06/2021, 03/09/2021, 02/18/2021 Pneumococcal Vaccine: Pediatrics (0 to 5 Years) and At-Risk Patients (6 to 49 Years) Aged Out 10/31/2013 No longer eligible [...] complete this topic Insurance [employer] Care Teams Bell Maker Relationship Specialty Start Date End Date Devante Suarze DO [address] [id number] PCP - General FAMILY PRACTICE 12/06/20
--- OUTSIDE RECORDS SUMMARY | 2024-09-26 14:16 | XMS_ITS | Clinical Summary ---
Author Organization [facility] Address [address] [place] [address] Care Team Providers Care Cultural Historian Name Role Phone Nyasia Arauz MD Primary Care Provider [phone] Source Comments [facility],non-owned Affiliates and Associated Physician Practices is amultiple site organization consisting of ambulatory clinics and hospital sitesin [place], [place], [place] and [place]. This disclosure is being madepursuant to the Care Everywhere program and may not contain all information available regarding this patient. Last updated 18.[facility] Allergies Active Allergy Reactions Criticality Noted Date Comments Zolpidem Psychiatric 10/01/2013 Codeine Nausea and/or Vomiting 10/01/2013 Hydrocodone Nausea and/or Vomiting 10/30/2013 Medications * Be aware that medications may not be up to date on this document. Alwaysverify current medications with the patient. lansoprazole (PREVACID) 30 MG capsule Take 30 mg by mouth 2 times daily,before breakfast and supper. Active brexpiprazole (REXULTI) 1 MG tablet Take 3 mg by mouth at bedtime Active cetirizine (ZYRTEC) 10 MG tablet Take 1 (one) tablet by mouth once daily 04/22/20 20 Active clonazePAM (KLONOPIN) 0.5 MG tablet Take 1 (one) tablet by mouth as needed 06/11/20 19 Active gabapentin (NEURONTIN) 300 MG capsule Take 300 mg by mouth once daily Active rOPINIRole (REQUIP) 0.5 MG tablet Take 0.5 mg by mouth once daily Active erenumab-aooe (AIMOVIG) 70 MG/ML auto injector pen Inject 70 mg subcutaneously 04/08/20 21 Active fluticasone propionate (FLONASE) 50 MCG/ACT nasal spray 11/27/19 21 Active ibuprofen (MOTRIN) 800 MG tablet ibuprofen 800 mg tablet TAKE 1 TABLET BY MOUTH EVERY 8 HOURS Activ e ondansetron, disintegrating , (ZOFRAN ODT) 4 MG tablet 02/18/20 21 Active lithium carbonate (ESKALITH) 600 MG capsule 10/12/19 22 Active cyclobenzaprin e (FLEXERIL) 10 MG tablet cyclobenzaprine 10 mg tablet Active pantoprazole EC (PROTONIX) 40 MG tablet pantoprazole 40 mg tablet,delayed release TAKE 1 TABLET BY MOUTH ONCE DAILY Active carvedilol (Coreg) 12.5 MG tablet 01/09/20 24 Active OXcarbazepine (Trileptal) 150 MG tablet 08/22/19 24 Active Atogepant (Qulipta) 10 MG TABS Active atomoxetine (Strattera) 10 MG capsule Take by mouth every morning Active clobetasol (Temovate) 0.05 % creamIndicatio ns:Psoriasis Apply to affected areas of skin two times per day as needed to arms and legs for psoriasis 60 g 1 01/24/20 24 Active clobetasol (Temovate) 0.05 % solutionIndica tions:Psoriasi s Apply to affected areas of skin two times per day as needed to scalp for psoriasis 50 mL 1 01/24/20 24 Active Active Problems Patient Care Coordination No [...] Hx of delivery, currently 09/23/2013 09/12/2021 Immunizations Immunization Administration Dates Next Due Covid Moderna primary [...] drink = 0.6 oz pur e alcohol) Comments No Sex and Gender Information Value Date Recorded Sex Assigned at Not on file Legal Sex Female 7:24 AM CDT Gender Identity Female 09/05/2021 11:57 AM CDT Sexual Orientation Straight 09/05/2021 11 :57 AM CDT Last Filed Vital Signs Vital Sign Reading Time Taken Comments Blood Pressure 122/80 10/14/2021 10:46 AM CDT Pulse 82 10/14/2021 10:46 AM CDT Temperature 36.8 C (98.3 F) 08/13/2021 1:24 PM REAL ESTATE AGENCY LICENSEE Respiratory Rate 16 08/13/2021 1:24 PM REAL ESTATE AGENCY LICENSEE Oxygen Saturation 99% 08/13/2021 1:24 PM REAL ESTATE AGENCY LICENSEE Inhaled Oxygen Concentration - - Weight 84.9 kg (187 lb 3.2 oz) 10/14/2021 10:46 AM CDT Height 168.9 cm (5' 6.5 ) 10/14/2021 10:46 AM CD T Body Mass Index 29.76 10/14/2021 10:46 AM CDT Plan of Treatment Upcoming Encounters Date Type Department Care Team (Late st Contact Info) Description 04/02/2025 8:30 AM CDT Office Visit [facility] - Rheumatology [address] [place] [address], [facility] [place] [phone] Hawa Espinal MD [address] [place] [address] [place] [id number] Health Maintenance Due Date Last Done Comments LIPID TESTING 1982 MAMMOGRAM 1982 HIV SCREENING 1997 HEPATITIS B VACCINE (1 of 3 - 19+ 3-dose series) 2001 PNEUMOCOCCAL VACCINE (2 of 2 - PCV) 10/31/2014 10/31/2013 PAP with HPV 12/10/2018 12/10/2013 DTAP/TDAP/TD VACCINES (2 - T d or Tdap) 10/02/2023 10/01/2013 COVID-19 VACCINE ( - 2023-2 5 season) 2024 04/06/2021, 03/16/2021, 02/18/2021 DEPRESSION SCREENING 06/13/2024 INFLUENZA VACCINE (Season Ended) 2025 02/19/2021, 03/19/2020 ZOSTER VACCINE (1 of 2) 2032 HEPATITIS [...] Author Safety General On track( 1:56 PM REAL ESTATE AGENCY LICENSEE) Keyonna Loo RN Note: Expected end date: ongoing Interventions: Be aware of medications that could predispose you to falling Wear glasses/hearing aid Keep personal items within easy reach Medication Management General On track( 1:56 PM REAL ESTATE AGENCY LICENSEE) Keyonna Loo RN Note: Expected end date: [...] C RNA QUANTITATIVE Routine 07/01/2014 1:01 PM REAL ESTATE AGENCY LICENSEE HPV DNA PROBE HI RISK + LOW RISK PANEL Routine 12/10/2013 3:16 PM CDT Supervision of other high-risk , unspecified trimester from Last 3 Months or Most Recently Relevant to Health Maintenance Results * HEPATITIS C RNA QUANTITATIVE PCR (07/01/2014 1:01 PM REAL ESTATE AGENCY LICENSEE) [facility] Hepatitis C Virus RNA PCR Specimen: 1 ml Serum Reference: [id number] Test: Hepatitis C RT-PCR (Quantitative) RESULT Not Detected Reference Range Not Detected INTERPRETATION The quantitative Hepatitis C viral RNA RT-PCR determination was performed on a serum sample and is reported in IU/ml. Hepatitis C viral RNA was not detected. COMMENT The Hepatitis C (HCV) viral RNA analysis utilized a serum sample, real-time reverse foreign car mechanic PCR, and is reported as Not Detected/Detected [...] the isolation of HCV RNA with reverse foreign car mechanic of genomic HCV RNA followed by real-time PCR in the presence of a reference standard RNA. The standard ensures that RNA was isolated, that no general significant inhibitors of the RT-PCR process were present. This test was developed and its performance characteristics determined by the [facility] Diagnostic Laboratory at [facility]. It has not been cleared or [...] complexity clinical laboratory testing. Test performed at [facility], [address] [place] [address] This case has been personally reviewed and interpreted by the attending (teaching) pathologist. Final Diagnosis performed by Murali Mackey PHD. Electronically signed 07/04/2014 [facility] Blood specimen (specimen) BLOOD SPECIMEN / Unknown 07/01/2014 1:01 PM REAL ESTATE AGENCY LICENSEE 07/01/2014 2:20 PM REAL ESTATE AGENCY LICENSEE us Zeferino Alvarenga MD LAB - CHEMISTRY OR DERABLES Final Result [facility] * HPV DNA PROBE HI RISK + LOW RISK PANEL (12/10/2013 3:16 PM CDT) Human papillomavirus Low Risk Not Performed 12/19/2013 9:14 AM CDT [facility] Human papillomavirus High Risk Negative 12/19/2013 9:14 AM CDT [facility] Pathology/Cytolo gy ENTIRE ENDOCERVIX / Unknown Collection / Unknown 12/10/2013 3:16 PM CDT 12/19/2013 9:01 AM CDT Shaggy Martell MD LAB - MICROBIOLOGY ORDERABLES Fi nal Result [facility] [address] [place] [address] from Last 3 Months or Most Recently Relevant to Health Maintenance Insurance [id number] [place] [address] [facility] Address: [address] [address] Advance Directives * Full Code (Latest Code Status on File) Date Activated Date Inactivated Comments 10/30/2013 8:56 AM 11/03/2013 1:16 PM Care Teams Cultural Historian Relationship Specialty Start Date End Date Nyasia Arauz MD [address] [place] [address] PCP - General Family Medicine 01/24/24
--- OUTSIDE RECORDS SUMMARY | 2024-09-26 14:16 | XMS_ITS | Clinical Summary ---
Author Organization [facility] Address [address] [place] [address] Care Team Providers Care Space Engineer Name Role Phone Mendez Pantoja MD Unavailable [phone] Nyasia Arauz MD Primary Care Provider [phone] Allergies Active Allergy Reactions Criticality Noted Date [...] Active OneTouch Delica Plus Lancet 33 gauge [facility] 01/05/20 23 Active lithium 300 mg tablet/capsule [...] 07/22/2022 Assessment & Plan (07/22/2022 1:41 PM EXHIBITS COORDINATOR): The problem of recurrent insomnia is discussed. [...] sleeping better insomnia as written by the [place] [employer]. I have also ordered a PSG Intractable chronic migraine without aura and without status migrainosus 04/29/2022 Hypersomnia 01/12/2022 Assessment & Plan (07/22/2022 1:39 PM EXHIBITS COORDINATOR): Sleep hygiene was discussed Assessment & Plan (01/12/2022 2:16 PM CDT): The patient is going to talk with her primary care physician regarding lab work. Snoring 11/17/2021 Assessment & Plan (07/22/2022 1:39 PM EXHIBITS COORDINATOR): Due to worsening symptoms of the snoring, [...] Department Care Team Description 07/30/2024 1:00 PM EXHIBITS COORDINATOR Procedure visit [facility] Neurology [address] [place] [address] [place] [address] Ana Bennett NP Intractable chronic migraine [...] on file Legal Sex Female 8:33 PM EXHIBITS COORDINATOR Gender Identity Female 08/06/2021 9:34 AM EXHIBITS COORDINATOR Sexual Orientation Straight 08/06/2021 9: 34 AM EXHIBITS COORDINATOR Occupation Industry Job Start Date Job End Date on disability Not on file Not on file Not on file Obstetrics History Last Filed Vital Signs Vital Sign Reading Time Taken Comments Blood Pressure 100/60 05/28/2024 3:33 PM EXHIBITS COORDINATOR Pulse 75 05/28/2024 3:33 PM EXHIBITS COORDINATOR Temperature 36.8 C (98.3 F) 04/11/2024 1:22 PM CDT Respiratory Rate 20 05/28/2024 3:33 PM EXHIBITS COORDINATOR Oxygen Saturation 97% 05/28/2024 3:33 PM EXHIBITS COORDINATOR Inhaled Oxygen Concentration - - Weight 77.1 kg (170 lb) 07/30/2024 12:54 PM EXHIBITS COORDINATOR Height 167.6 cm (5' 5.98 ) 07/30/2024 12:[address] Body Mass Index 27.45 07/30/2024 12:54 PM EXHIBITS COORDINATOR Plan of Treatment Health Maintenance Due Date [...] 5 season) 2024 04/06/2021, 03/09/2021 Influenza Vaccine (Season Ended) 2025 02/19/2021, 03/19/2020 HPV Vaccines Aged Out No longer eligi ble based on patient's age to complete this topic Procedures Procedure Name Priority Date/Time Associated Diagnosis Comments BOTOX INJECTION Routine 07/30/2024 1:00 PM EXHIBITS COORDINATOR Intractable chronic migraine without aura and without status migrainosus from Last 3 Months Results * Botox Injection (07/30/2024 1:00 PM EXHIBITS COORDINATOR) Narrative Za Pires - 07/30/2024 1:00 PM EXHIBITS COORDINATOR Za Pires 07/30/2024 1:19 PM Botox Injection Performed by: Ana Bennett NP Authorized by: Ana Bennett NP [place] Protocol: Consent Given by: Patient Timeout: prior to procedure the correct patient, procedure, and site was verified Procedure Details - Botox Injection: Procedure Details: See Botox flow sheet for details on injection sites and amounts. This can be found in Media and labeled BLVLE [email or web address].BOTOX.PROCEDURE NOTES. Ana Bennett NP IN CLINIC/BEDSIDE ORDERABLES Final Result from Last 3 Months Insurance Care Teams Space Engineer Relationship Specialty Start Date End Date Nyasia Arauz MD [address] [place] [address] PCP - General Family Medicine 02/07/24 Mendez Pantoja MD [address] [place] [address] MEDICAL ONCOLOGY, [facility] [address] [place] [address] Medical Oncologist/Hematologis t Hematology and Oncology 02/10/23
--- OUTSIDE RECORDS SUMMARY | 2024-09-26 14:16 | XMS_ITS | Data Portability ---
Author Organization [facility] , [facility] Address [address] [place] [address] Assessment No assessment recorded. Plan of Treatment Reminders Order Date Submit Date Provider Last Modified By Organization Details Last Modified Time Details Appointments None recorded. Lab biopsy, tissue 2021 022 [employer], [address] [facility], [place], [address], 15:22:17 Referral None recorded. Procedures None recorded. Surgeries excision, sebaceous cyst (SURG) 2021 022 [email or web address] Not available 19:20:55 Imaging None recorded. Medication Orders None recorded. Patient TargetsNo targets recorded. Patient InstructionsNo instructions recorded. Reason for Referral None Reported. Results Created Date Observation Date Name Description Value Unit Range Abnormal Flag Note LastModifiedBy Organization Detail LastModifiedTime 09/19/1909/23/2021 TISSU E PATHO LOGY pathologist Becky bautista M.D., Board Certi fied in [place] topat holog y, Clini manuel and Anato aminata Patho logy. Patho logis t Phone : [phone] Clien t Servi chela Phone : [phone] (elec troni c signa juan) Not Available [employer] [facility] [address] , [place], [address], 09/23/2021 15:22:17 09/19/19 22 09/23/2021 TISSU E PATHO LOGY A source Skin, vulva , biops y: Not Available [employer] [facility] [address] [place], [address], 09/23/2021 15:22:17 09/19/1909/23/2021 TISSU E PATHO LOGY [...] ). Gross exam( s) perfo rmed at: [employer] [facility] [place] [address] [place] [address] AY, [place] [address] Labor atory Direc tor: JAIR Pulido MD Not Available [employer] [facility] [address] , [place], [address], 09/23/2021 15:22:17 09/19/19 22 09/23/2021 TISSU E PATHO LOGY A diagnosis - Abund ant surfa ce kerat in, consi stent with cyst michelet nts. Not Available [facility] [address] [place], [address], 09/23/2021 15:22:17 Result Notes None recorded. Procedures Surgical History Date Name Laterality Status Provider Name and Address Organization Details Recorded Time 09/19/19 Vulvar Biopsy completed Ludmila Crockett DO [facility], [place], [address], [facility] 09/18/2021 13:39:12 09/01/19 Date of Last Pap Smear completed Kimberly Barron [facility] 09/18/2021 11:46:06 section completed [facility] 09/18/2021 12:03:14 ligation of fallopian tube completed [facility] 09/18/2021 12:03:36 Hysteroscopy ablation completed [facility] 09/18/2021 12:03:43 Imaging Results None recorded. Procedure Notes None recorded. Medical Equipment None Reported. Allergies Allergen ID Allergen Name Allergen Category Reaction Reaction Severity Criticality Documentation Date Start Date Code Code System Note Provider Name and Address Organization Details Recorded Time 920814 codeine medicatio n nausea Not available Not available 09/18/2021 2670 RxNorm Not Available Not Available Not Available 632029 Ambien medicatio n hallucina tions Not available Not available 09/18/2021 74666 5 RxNorm Not Available Not Available Not [...] Updated DateTime 2 170.18 cm 29.7 kg/m2 90013.3 9 g 97 [degF] 118 mm[Hg] 70 mm[Hg] Kimberly Barron [facility] 2 11:40:14 Social History Question Answer Notes LastModified by Organizat ion Details LastModified Time Tobacco Smoking Status Never Smoker Kimberly middleton, [facility] 09/18/2021 11:48:55 What Is Your Level Of Alcohol Consumption? None [email or web address] Information not available 09/18/2021 Are You Blind Or Do You Have Difficulty Seeing? No Information not available 09/18/2021 Are You Currently Employed? No Information not available 09/18/2021 Are You Deaf Or Do You Have Serious Difficulty Hearing? No Information not available 09/18/2021 What Type Of Diet Are You Following? REGULAR Information not available 09/18/2021 How Many Children Do You Have? 5 [email or web address] Information not available 09/18/2021 What Is Your Relationship Status? [email or web address] Information not available 09/18/2021 Are You Sexually Active? Yes [email or web address] Information not available 09/18/2021 Do You Use [...] SNOMED-CT Code Diagnosis ICD10 Code Diagnosis Note [id number] Ludmila Crockett DO [facility] [address] [place] [address] 09/18/2021 11:34:05 09/18/2021 12:35:12 Epidermoid cyst of skin 434988345 L72.3 Health Concerns Section Related Observation LastModified by Organization Detai ls LastModified Time None Recorded Concern Status LastModified by Organization Details LastModified Time None Recorded Advance Directives Directive None Recorded Payers Encounter Date Sequence Insurance Name Policy Number Policy Lopez Covered Member ID Lopez Member ID Guarantor Name 09/18/2021 1 [facility] (MEDICAID HMO) [id number] Blanquita Chaney [id number] Blanquita Chaney Notes Date Note Type Note Provider Name and Address Organization Details Recorded Time 09/18/2021 text/html Patient has a palpable lump left labia, states that it is painful and is requesting removal Ldumila Crockett DO [address] [facility], [place], [address], [facility] 09/18/2021 13:41:12 OBGyn Episode No OBEpisode recorded.
== END 2024-09-26 13:13 | disposition home or self-care (01) ==
LOC: ANHIMG 13:14
PROVIDERS: PCP Family Medicine; Visit Provider Obstetrics & Gynecology
DX: N63.0 Unspecified lump in unspecified breast (principal); N63.22 Unspecified lump in the left breast, upper inner quadrant
CPT/HCPCS: 76642; 77062; 77066; G0279

== ENCOUNTER 2024-10-04 07:24 | Outpatient (CLI) | payer OTHER, SELFPAY ==
--- OUTSIDE RECORDS SUMMARY | 2024-10-04 07:27 | XMS_ITS | Clinical Summary ---
Author Organization [facility] Address [address] [place] [address] Care Team Providers Care Operations Label Clerk Name Role Phone Mendez Pantoja MD Unavailable [phone] Nyasia Arauz MD Primary Care Provider [phone] Allergies Active Allergy Reactions Criticality Noted Date [...] Active OneTouch Delica Plus Lancet 33 gauge [facility] 01/05/20 23 Active lithium 300 mg tablet/capsule [...] 07/22/2022 Assessment & Plan (07/22/2022 1:41 PM OFFICE SUPPORT SPECIALIST): The problem of recurrent insomnia is discussed. [...] sleeping better insomnia as written by the [place] [employer]. I have also ordered a PSG Intractable chronic migraine without aura and without status migrainosus 04/29/2022 Hypersomnia 01/12/2022 Assessment & Plan (07/22/2022 1:39 PM OFFICE SUPPORT SPECIALIST): Sleep hygiene was discussed Assessment & Plan (01/12/2022 2:16 PM CDT): The patient is going to talk with her primary care physician regarding lab work. Snoring 11/17/2021 Assessment & Plan (07/22/2022 1:39 PM OFFICE SUPPORT SPECIALIST): Due to worsening symptoms of the snoring, [...] Department Care Team Description 07/30/2024 1:00 PM OFFICE SUPPORT SPECIALIST Procedure visit [facility] Neurology [address] [place] [address] [place] [address] Ana Bennett NP Intractable chronic migraine [...] Mother Ludmila guerrero Mental illness Mother Ludmila ugerrero Uterine cancer Mother Ludmila guerrero Relation Name [...] on file Legal Sex Female 8:33 PM OFFICE SUPPORT SPECIALIST Gender Identity Female 08/06/2021 9:34 AM OFFICE SUPPORT SPECIALIST Sexual Orientation Straight 08/06/2021 9: 34 AM OFFICE SUPPORT SPECIALIST Occupation Industry Job Start Date Job End Date on disability Not on file Not on file Not on file Obstetrics History Last Filed Vital Signs Vital Sign Reading Time Taken Comments Blood Pressure 100/60 05/28/2024 3:33 PM OFFICE SUPPORT SPECIALIST Pulse 75 05/28/2024 3:33 PM OFFICE SUPPORT SPECIALIST Temperature 36.8 C (98.3 F) 04/11/2024 1:22 PM CDT Respiratory Rate 20 05/28/2024 3:33 PM OFFICE SUPPORT SPECIALIST Oxygen Saturation 97% 05/28/2024 3:33 PM OFFICE SUPPORT SPECIALIST Inhaled Oxygen Concentration - - Weight 77.1 kg (170 lb) 07/30/2024 12:54 PM OFFICE SUPPORT SPECIALIST Height 167.6 cm (5' 5.98 ) 07/30/2024 12:[address] Body Mass Index 27.45 07/30/2024 12:54 PM OFFICE SUPPORT SPECIALIST Plan of Treatment Health Maintenance Due Date [...] Comments BOTOX INJECTION Routine 07/30/2024 1:00 PM OFFICE SUPPORT SPECIALIST Intractable chronic migraine without aura and without status migrainosus from Last 3 Months Results * Botox Injection (07/30/2024 1:00 PM OFFICE SUPPORT SPECIALIST) Narrative Za Pires - 07/30/2024 1:00 PM OFFICE SUPPORT SPECIALIST Za Pires 07/30/2024 1:19 PM Botox Injection Performed by: Ana Bennett NP Authorized by: Ana Bennett NP [place] Protocol: Consent Given by: Patient Timeout: prior to procedure the correct patient, procedure, and site was verified Procedure Details - Botox Injection: Procedure Details: See Botox flow sheet for details on injection sites and amounts. This can be found in Media and labeled BLVLE [email or web address].[email or web address].PROCEDURE NOTES. Ana Bennett NP IN CLINIC/BEDSIDE ORDERABLES Final Result from Last 3 Months Insurance Care Teams Operations Label Clerk Relationship Specialty Start Date End Date Nyasia Arauz MD [address] [place] [address] PCP - General Family Medicine 02/07/24 Mendez Pantoja MD [address] [place] [address] MEDICAL ONCOLOGY, [facility] [address] [place] [address] Medical Oncologist/Hematologis t Hematology and Oncology 02/10/23
--- OUTSIDE RECORDS SUMMARY | 2024-10-04 07:27 | XMS_ITS | Clinical Summary ---
Author Organization [facility] Address [address] [place] [address] Care Team Providers Care Manufacturing Engineer Machining Name Role Phone Devante Suarez Primary Care Provider [phone] Allergies Active Allergy Reactions Criticality Noted Date [...] complete this topic Insurance [place] Care Teams Manufacturing Engineer Machining Relationship Specialty Start Date End Date Devante Suarez DO [address] [phone] PCP - General FAMILY PRACTICE 12/06/20
--- OUTSIDE RECORDS SUMMARY | 2024-10-04 07:27 | XMS_ITS | Referral Summary ---
Author Organization [facility] Address [address] [place] [address] Care Team Providers Care Gis Programmer Name Role Phone Mendez Pantoja MD Unavailable [phone] Nyasia Arauz MD Primary Care Provider [phone] Encounters Date Type Department Care Team Description 07/30/2024 1:00 PM LOCK OPERATOR Procedure visit [facility] Neurology [address] [facility] [address] [place] [address] Ana Bennett NP Intractable chronic [...] 02/16/20 23 Active OneTouch Verio Flex meter [facility] 01/05/20 23 Active OneTouch Delica Plus Lancet 33 gauge [facility] 01/05/20 23 Active lithium 300 mg tablet/capsule [...] 07/22/2022 Assessment & Plan (07/22/2022 1:41 PM LOCK OPERATOR): The problem of recurrent insomnia is [...] sleeping better insomnia as written by the [place] [employer]. I have also ordered a PSG Intractable chronic migraine without aura and without status migrainosus 04/29/2022 Hypersomnia 01/12/2022 Assessment & Plan (07/22/2022 1:39 PM LOCK OPERATOR): Sleep hygiene was discussed Assessment & Plan (01/12/2022 2:16 PM CDT): The patient is going to talk with her primary care physician regarding lab work. Snoring 11/17/2021 Assessment & Plan (07/22/2022 1:39 PM LOCK OPERATOR): Due to worsening symptoms of the [...] on file Legal Sex Female 8:33 PM LOCK OPERATOR Gender Identity Female 08/06/2021 9:34 AM LOCK OPERATOR Sexual Orientation Straight 08/06/2021 9: 34 AM LOCK OPERATOR Occupation Industry Job Start Date Job End Date on disability Not on file Not on file Not on file Last Filed Vital Signs Vital Sign Reading Time Taken Comments Blood Pressure 100/60 05/28/2024 3:33 PM LOCK OPERATOR Pulse 75 05/28/2024 3:33 PM LOCK OPERATOR Temperature 36.8 C (98.3 F) 04/11/2024 1:22 PM CDT Respiratory Rate 20 05/28/2024 3:33 PM LOCK OPERATOR Oxygen Saturation 97% 05/28/2024 3:33 PM LOCK OPERATOR Inhaled Oxygen Concentration - - Weight 77.1 kg (170 lb) 07/30/2024 12:54 PM LOCK OPERATOR Height 167.6 cm (5' 5.98 ) 07/30/2024 12:[address] Body Mass Index 27.45 07/30/2024 12:54 PM LOCK OPERATOR Plan of Treatment Not on file Procedures Procedure Name Priority Date/Time Associated Diagnosis Comments BOTOX INJECTION Routine 07/30/2024 1:00 PM LOCK OPERATOR Intractable chronic migraine without aura and without status migrainosus from Last 3 Months Results * Botox Injection (07/30/2024 1:00 PM LOCK OPERATOR) Narrative Za Pires - 07/30/2024 1:00 PM LOCK OPERATOR Za Pires 07/30/2024 1:19 PM Botox Injection Performed by: Ana Bennett NP Authorized by: Ana Bennett NP [place] Protocol: Consent Given by: Patient Timeout: prior to procedure the correct patient, procedure, and site was verified Procedure Details - Botox Injection: Procedure Details: See Botox flow sheet for details on injection sites and amounts. This can be found in Media and labeled BLVLE [email or web address].[email or web address].PROCEDURE NOTES. Ana Bennett NP IN CLINIC/BEDSIDE ORDERABLES Final Result from Last 3 Months Insurance [facility] Care Teams Gis Programmer Relationship Specialty Start Date End Date Nyasia Arauz MD [address] [place] [address] PCP - General Family Medicine 02/07/24 Mendez Pantoja MD [facility] MEDICAL ONCOLOGY, [facility] [address] [place] [address] Medical Oncologist/Hematologis t Hematology and Oncology 02/10/23
--- OUTSIDE RECORDS SUMMARY | 2024-10-04 07:27 | XMS_ITS | Clinical Summary ---
Author Organization [facility] Address [address] [place] [address] Care Team Providers Care Pie Crust Mixer Name Role Phone Nyasia Arauz MD Primary Care Provider [phone] Source Comments [facility],non-owned Affiliates and Associated Physician Practices is amultiple site organization consisting of ambulatory clinics and hospital sitesin [place], [place], [place] and [place]. This disclosure is being madepursuant to the Care Everywhere program and may not contain all information available regarding this patient. Last updated 18.[facility] Allergies Active Allergy Reactions Criticality Noted Date [...] 36.8 C (98.3 F) 08/13/2021 1:24 PM SALES TRAINING REPRESENTATIVE Respiratory Rate 16 08/13/2021 1:24 PM SALES TRAINING REPRESENTATIVE Oxygen Saturation 99% 08/13/2021 1:24 PM SALES TRAINING REPRESENTATIVE Inhaled Oxygen Concentration - - Weight 84.9 kg (187 lb 3.2 oz) 10/14/2021 10:46 AM CDT Height 168.9 cm (5' 6.5 ) 10/14/2021 10:46 AM CD T Body Mass Index 29.76 10/14/2021 10:46 AM CDT Plan of Treatment Upcoming Encounters Date Type Department Care Team (Late st Contact Info) Description 04/02/2025 8:30 AM CDT Office Visit [facility] - Rheumatology [address] [place] [address], [place] [address] Hawa Espinal MD [address] [place] [address] [place] [address] Health Maintenance Due Date Last Done Comments [...] Author Safety General On track( 1:56 PM SALES TRAINING REPRESENTATIVE) Keyonna Loo RN Note: Expected end date: ongoing Interventions: Be aware of medications that could predispose you to falling Wear glasses/hearing aid Keep personal items within easy reach Medication Management General On track( 1:56 PM SALES TRAINING REPRESENTATIVE) Keyonna Loo RN Note: Expected end date: [...] C RNA QUANTITATIVE Routine 07/01/2014 1:01 PM SALES TRAINING REPRESENTATIVE HPV DNA PROBE HI RISK + LOW RISK PANEL Routine 12/10/2013 3:16 PM CDT Supervision of other high-risk , unspecified trimester from Last 3 Months or Most Recently Relevant to Health Maintenance Results * HEPATITIS C RNA QUANTITATIVE PCR (07/01/2014 1:01 PM SALES TRAINING REPRESENTATIVE) [facility] Hepatitis C Virus RNA PCR Specimen: 1 ml Serum Reference: [id number] Test: Hepatitis C RT-PCR (Quantitative) RESULT Not Detected Reference Range Not Detected INTERPRETATION The quantitative Hepatitis C viral RNA RT-PCR determination was performed on a serum sample and is reported in IU/ml. Hepatitis C viral RNA was not detected. COMMENT The Hepatitis C (HCV) viral RNA analysis utilized a serum sample, real-time reverse photography spotter PCR, and is reported as Not Detected/Detected [...] the isolation of HCV RNA with reverse photography spotter of genomic HCV RNA followed by real-time PCR in the presence of a reference standard RNA. The standard ensures that RNA was isolated, that no general significant inhibitors of the RT-PCR process were present. This test was developed and its performance characteristics determined by the DNA Diagnostic Laboratory at [facility]. It has not been cleared [...] complexity clinical laboratory testing. Test performed at [facility], [address] [place] [address] This case has been personally reviewed and interpreted by the attending (teaching) pathologist. Final Diagnosis performed by Murali Mackey PHD. Electronically signed 07/04/2014 [facility] Blood specimen (specimen) BLOOD SPECIMEN / Unknown 07/01/2014 1:01 PM SALES TRAINING REPRESENTATIVE 07/01/2014 2:20 PM SALES TRAINING REPRESENTATIVE us Zeferino Alvarenga MD LAB - CHEMISTRY OR DERABLES Final Result [facility]) * HPV DNA PROBE HI RISK + LOW RISK PANEL (12/10/2013 3:16 PM CDT) Human papillomavirus Low Risk Not Performed 12/19/2013 9:14 AM CDT [facility] Human papillomavirus High Risk Negative 12/19/2013 9:14 AM CDT [facility] Pathology/Cytolo gy ENTIRE ENDOCERVIX / Unknown Collection / Unknown 12/10/2013 3:16 PM CDT 12/19/2013 9:01 AM CDT Shaggy Martell MD LAB - MICROBIOLOGY ORDERABLES Fi nal Result [facility] [address] [place] [address] from Last 3 Months or Most Recently Relevant to Health Maintenance Insurance [id number] [place] [address] Advance Directives * Full Code (Latest Code Status on File) Date Activated Date Inactivated Comments 10/30/2013 8:56 AM 11/03/2013 1:16 PM Care Teams Pie Crust Mixer Relationship Specialty Start Date End Date Nyasia Arauz MD [address] [place] [address] PCP - General Family Medicine 01/24/24
[2024-10-04 07:46] LABS: Hemoglobin A1C 5.3 % (<5.7)
[2024-10-04 07:55] LABS: Anion Gap 6 mmol/L (4-12); Blood Urea Nitrogen 10 mg/dL (7-17); Calcium 8.5 mg/dL (8.4-10.2); Carbon Dioxide 28 mmol/L (22-30); Chloride 102 mmol/L (98-107); Cholesterol 215 mg/dL (0-200); Estimated Glomerular Filt Rate > 60; Glucose 100 mg/dL (65-110); HDL Direct 46 mg/dL; Potassium 3.8 mmol/L (3.4-5.0); Sodium 136 mmol/L (137-145); Triglycerides 106 mg/dL (<150)
[2024-10-04 08:06] LABS: LDL Cholesterol Direct 146 mg/dL
[2024-10-04 08:25] LABS: Thyroid Stimulating Hormone 0.818 uIU/mL (0.465-4.680)
[2024-10-04 09:44] LABS: Free T4 Free Thyroxine 0.77 ng/dL (0.78-2.19)
== END 2024-10-04 07:25 | disposition home or self-care (01) ==
LOC: ANHLAB 07:25
PROVIDERS: PCP Family Medicine; Visit Provider Student in an Organized Health Care Education/Training Program
DX: Z13.1 Encounter for screening for diabetes mellitus (principal); I10 Essential (primary) hypertension; E87.1 Hypo-osmolality and hyponatremia; R79.89 Other specified abnormal findings of blood chemistry; E78.5 Hyperlipidemia, unspecified
CPT/HCPCS: 36415; 80048; 80061; 83036; 84439; 84443

== ENCOUNTER 2024-12-19 12:41 | Outpatient (CLI) | payer OTHER, SELFPAY ==
--- OUTSIDE RECORDS SUMMARY | 2024-12-19 12:45 | XMS_ITS | Clinical Summary ---
Author Organization [facility] Address [address] [place] [address] Care Team Providers Care Landscape Technician Name Role Phone Devante Suarez Primary Care Provider [phone] Allergies Active Allergy Reactions Criticality Noted Date [...] 10:51 AM CDT Height 170.2 cm (5' 7) 12/06/2020 10:51 AM CDT Body Mass Index [...] complete this topic Insurance [employer] Care Teams Landscape Technician Relationship Specialty Start Date End Date Devante Suarez DO [address] [phone] PCP - General FAMILY PRACTICE 12/06/20
[2024-12-19 12:54] LABS: Hematocrit 42.7 % (37.0-47.0); Hemoglobin 14.4 g/dL (12.0-15.0); Immature Granulocyte Percent A 0.5 % (0-0.5); Lymphocytes Absolute Auto 2.17 K/mm3 (0.9-3.2); Mean Corpuscular HGB Conc 33.7 g/dl (32-36); Mean Corpuscular Hemoglobin 30.0 pg (26-34); Mean Corpuscular Volume 89.0 fl (80-100); Nucleated Red Blood Cells Absolute Auto 0.000 K/mm3 (0.0-0.012); Nucleated Red Blood Cells Perc 0.0 % (0.0-0.2); Platelet Count Result 306 k/mm3 (150-375); Red Blood Count 4.80 M/mm3 (4.2-5.4); White Blood Count 11.6 K/mm3 (4.5-10.0)
[2024-12-19 16:10] LABS: CRP < 0.5 mg/dL (<1.0)
== END 2024-12-19 12:42 | disposition home or self-care (01) ==
LOC: ANHLAB 12:43
PROVIDERS: PCP Family Medicine; Visit Provider Student in an Organized Health Care Education/Training Program
DX: R51.9 Headache, unspecified (principal); M25.50 Pain in unspecified joint; R53.83 Other fatigue
CPT/HCPCS: 36415; 85025; 86140

== ENCOUNTER 2025-01-14 12:40 | Outpatient (CLI) | payer OTHER, SELFPAY ==
--- NOTE | ~2025-01-14 | XR_ITS ---
Cervical Spine: AP, lateral, oblique, open-mouth views Clinical History: Pain Findings: There is straightening of the normal cervical lordosis. The vertebral bodies and posterior elements appear intact. The intervertebral disc spaces are well maintained. Pre-vertebral soft tiss ues are unremarkable. Impression: Straightening of the normal cervical lordosis, otherwise unremarkable exam. Reviewed, dictated and finalized at location . Impression: Straightening of the normal cervical lordosis, otherwise unremarkable exam.
--- OUTSIDE RECORDS SUMMARY | 2025-01-14 12:23 | XMS_ITS | Clinical Summary ---
Author Organization [facility] Address [address] [place] [address] Care Team Providers Care Bottom Scrubber Name Role Phone Devante Suarez Primary Care Provider [phone] Allergies Active Allergy Reactions Criticality Noted Date [...] 1982 Annual Physical 1985 Hepatitis C 2000 HPV Vaccines (1 - 3-dose SCD M series) 2009 Cervical Cancer Screening Pa p with HPV Testing (Age 30 to 64) Every 5 Years 2012 Cervical Cancer Screening wi th HPV 2012 Mammogram Screening 2022 DTaP, Tdap and Td Vaccines ( 2 - Td or Tdap) 10/02/2023 10/01/2013 COVID-19 Vaccine ( - 2023-2 5 season) 2024 04/06/2021, 03/09/2021, 02/18/2021 Pneumococcal Vaccine: Pediatrics (0 to 5 Years) and At-Risk Patients (6 to 49 Years) Aged Out 10/31/2013 No longer eligible b ased on patient's age to complete this topic Hepatitis B Vaccines Completed 01/30/2015, 09/30/2014, 08/30/2014 Meningococcal B Vaccine Aged Out No l onger eligible based on patient's age to complete this topic Meningococcal Vaccine Aged Out No alyssa jeff eligible based on patient's age to complete this topic RSV Immunizations Under 20 Months Aged Out No longer eligible b ased on patient's age to complete this topic Insurance [employer] Care Teams Bottom Scrubber Relationship Specialty Start Date End Date Devante Suarez DO [address] [phone] PCP - General FAMILY PRACTICE 12/06/20
--- OUTSIDE RECORDS SUMMARY | 2025-01-14 12:44 | XMS_ITS | Clinical Summary ---
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
[2025-01-14 12:56] LABS: Hematocrit 39.9 % (37.0-47.0); Hemoglobin 13.4 g/dL (12.0-15.0); Immature Granulocyte Percent A 0.6 % (0-0.5); Lymphocytes Absolute Auto 1.98 K/mm3 (0.9-3.2); Mean Corpuscular HGB Conc 33.6 g/dl (32-36); Mean Corpuscular Hemoglobin 29.7 pg (26-34); Mean Corpuscular Volume 88.5 fl (80-100); Nucleated Red Blood Cells Absolute Auto 0.000 K/mm3 (0.0-0.012); Nucleated Red Blood Cells Perc 0.0 % (0.0-0.2); Platelet Count Result 299 k/mm3 (150-375); Red Blood Count 4.51 M/mm3 (4.2-5.4); White Blood Count 12.3 K/mm3 (4.5-10.0)
[2025-01-15 07:08] LABS: FSH 3.9 mIU/mL (.)
== END 2025-01-14 12:41 | disposition home or self-care (01) ==
PROVIDERS: PCP Family Medicine; Referring Provider Student in an Organized Health Care Education/Training Program; Visit Provider Obstetrics & Gynecology
DX: R51.9 Headache, unspecified (principal); M25.50 Pain in unspecified joint; N95.1 Menopausal and female climacteric states; D72.829 Elevated white blood cell count, unspecified; M50.10 Cervical disc disorder with radiculopathy, unspecified cervical region
CPT/HCPCS: 36415; 72050; 83001; 85025; 85652

== ENCOUNTER 2025-02-16 11:45 | Outpatient (CLI) | payer OTHER, SELFPAY ==
--- NOTE | ~2025-02-16 | MR_ITS ---
EXAMINATION: MR lumbar spine wo con DATE: 02/16/2025 12:29 INDICATION: Radiculopathy, lumbar region. TECHNIQUE: Magnetic resonance imaging (MRI) of the lumbar spine was performed without intravenous contrast. COMPARISON: None FINDINGS: The disc is bulging. Intervertebral disc heights are normal. There is mildly decreased disc height at L3-L4 and L4-L5. The distal spinal cord signal intensity is normal. The conus medullaris is at L1-L2. The following disc levels are specifically discussed: L1-L2: The disc does not extend beyond the endplate margin. There is mild bilateral facet joint osteoarthritis. There is no neural foraminal stenosis. There is no central canal stenosis. L2-L3: The disc does not extend beyond the endplate margin. There is severe bilateral facet joint osteoarthritis. There is no neural foraminal stenosis. There is no central canal stenosis. L3-L4: The disc is bulging. There is severe bilateral facet joint osteoarthritis. There is mild bilateral neural foraminal stenosis. There is mild central canal stenosis. L4-L5: The disc is bulging and has an annular fissure. There is severe bilateral facet joint osteoarthritis. There is mild bilateral neural foraminal stenosis. There is mild central canal stenosis. L5-S1: The disc is bulging and has an annular fissure. There is moderate bilateral facet joint osteoarthritis. There is mild bilateral neural foraminal stenosis. There is mild central canal stenosis. IMPRESSION: 1. Mild lumbar spondylosis. Reviewed, dictated and finalized at location E. IMPRESSION: 1. Mild lumbar spondylosis.
--- NOTE | ~2025-02-16 | MR_ITS ---
EXAMINATION: MR cervical spine wo con DATE: 02/16/2025 12:29 INDICATION: Cervical disc disorder with radiculopathy. TECHNIQUE: Magnetic resonance imaging (MRI) of the cervical spine was performed without intravenous contrast. COMPARISON: Cervical spine radiographs 01/14/2025 FINDINGS: There is mild kyphosis of lower cervical spine. Vertebral body heights are normal. There is moderately decreased disc height at C5-C6. The spinal cord signal intensity is normal. The following disc levels are specifically discussed: C2-C3: The disc does not extend beyond the endplate margin. There is no uncovertebral joint osteoarthritis. There is mild bilateral facet joint osteoarthritis. There is no neural foraminal stenosis. There is no central canal stenosis. C3-C4: The disc does not extend beyond the endplate margin. There is no uncovertebral joint osteoarthritis. There is no facet joint osteoarthritis. There is no neural foraminal stenosis. There is no central canal stenosis. C4-C5: The disc is bulging. There is moderate right and mild left uncovertebral joint osteoarthritis. There is mild left facet joint osteoarthritis. There is mild right neural foraminal stenosis. There is mild central canal stenosis. C5-C6: The disc is bulging with superimposed extrusion in right lateral recess. There is severe right and moderate left uncovertebral joint osteoarthritis. There is mild bilateral facet joint osteoarthritis. There is moderate right neural foraminal stenosis. There is moderate central canal stenosis. There is severe stenosis of right lateral recess. C6-C7: There is a central protrusion. There is mild bilateral uncovertebral joint osteoarthritis. There is mild bilateral facet joint osteoarthritis. There is no neural foraminal stenosis. There is no central canal stenosis. C7-T1: The disc does not extend beyond the endplate margin. There is no uncovertebral joint osteoarthritis. There is moderate bilateral facet joint osteoarthritis. There is mild bilateral neural foraminal stenosis. There is no central canal stenosis. IMPRESSION: 1. Severe spondylosis at C5-C6. Reviewed, dictated and finalized at location E.
== END 2025-02-16 11:46 | disposition home or self-care (01) ==
LOC: CHSIMG 11:47
PROVIDERS: PCP Family Medicine; Visit Provider Neurological Surgery
DX: M50.10 Cervical disc disorder with radiculopathy, unspecified cervical region (principal); M47.896 Other spondylosis, lumbar region; M47.892 Other spondylosis, cervical region
CPT/HCPCS: 72141; 72148

== ENCOUNTER 2025-02-27 12:16 | Outpatient (CLI) | payer OTHER, SELFPAY ==
--- OUTSIDE RECORDS SUMMARY | 2025-02-26 08:30 | XMS_ITS | Encounter Summary ---
Author Organization [facility] Address [address] [place] [address] Care Team Providers Care Photostatic Copy Maker Name Role Phone Nyasia Arauz MD Primary Care Provider [phone] Reason for Visit * Reason Comments Establish Care Encounter Details Date Type Department Care Team (Late st Contact Info) Description 02/26/2025 8:30 AM CDT Office Visit [facility] - Rheumatology [address] [place] [address], [place] [address] Kath Oswald MD [address] [place] [address] [address]L [place] [address] Jasbir Guo MD [address] [place] [phone] Polyarthralgia (Primary Dx); Chronic fatigue Social History Tobacco Use Types Packs/Day Years [...] Orientation Straight 09/05/2021 11 :57 AM CDT documented as of this encounter Last Filed Vital Signs Vital Sign Reading Time Taken Comments Blood Pressure 118/74 02/26/2025 8:15 AM CDT Pulse 73 02/26/2025 8:15 AM CDT Temperature - - Respiratory Rate - - Oxygen Saturation 98% 02/26/2025 8:15 AM CDT Inhaled Oxygen Concentration - - Weight 75.3 kg (166 lb) 02/26/2025 8:15 AM CDT Height 167.6 cm (5' 6) 02/26/2025 8:15 AM CDT Body Mass Index 26.79 02/26/2025 8:15 AM CDT documented in this encounter Functional Status * Is person deaf or have serious hearing difficulty? Answer Date of Assessment Author No 10/30/2013 9:01 AM CDT Sahara Golden RN * Is person blind or have serious difficulty seeing? Answer Date of Assessment Author No 10/30/2013 9:01 AM CDT Sahara Golden RN * Does person have serious difficulty walking/climbing stairs? Answer Date of Assessment Author No 10/30/2013 9:01 AM CDT Sahara Golden RN * Does person have difficulty dressing/bathing? Answer Date of Assessment Author No 10/30/2013 9:01 AM CDT Sahara Golden RN * Does person have difficulty doing errands alone? Answer Date of Assessment Author No 10/30/2013 9:01 AM CDT Sahara Golden RN documented as of this encounter Mental Status * Does person have difficulty concentrating/remembering/making decisions? Answer Entry Date Author No 10/30/2013 9:01 AM CDT Sahara Golden RN documented in this encounter Patient Instructions * Patient Instructions* Jasbir Guo MD - 02/26/2025 9:32 AM CDT You we were seen today for a positive emiliano as well as concern for psoriatic arthritis. As of now ourconcern for psoriatic arthritis is low. We will get lab work and xrays and discuss further management strategies at our next appointment. We will see you again in 3-4 weeks SCHEDULING: To schedule, reschedule, or cancel an appointment, please call the Central Scheduling department at [phone] or [phone] option 1. CONTACT: If you need to leave a message for your senior sharepoint developer, you can send an electronic messagevia [employer] or call the clinic and leave a voicemail (the voicemail is checked several times daily on week days). [facility] Rheumatology Clinics: (1) [facility] Specialized Medicine: , (2) [facility] , [facility] Infusion Centers: (1) [facility] Infusion Center: , (2) [facility]: , REFILLS: If you need a refill on your medication, please contact your pharmacy first to request a refill; if there are no more refills and you need a new prescription, you can request a new prescription through [employer] or call the clinic. TEST RESULTS: If you choose to get labs or imaging at an outside facility, it is your (as the patient) responsibility to have these results sent to us - we recommend providing the outside facility with the fax number (listed above) to the rheumatology clinic you attend. RHEUMATOLOGIC EMERGENCIES: For after hours rheumatologic emergencies only, you can reach the on-call senior sharepoint developer by calling the [facility] button tufting machine operator at [phone] and ask forthe Table Runner On-Call to be paged, but please also seek out appropriate care at [facility]. documented in this encounter Plan of Treatment Upcoming Encounters Date Type Department Care Team (Late st Contact Info) Description 04/09/2025 10:00 AM CDT Office Visit [facility] - Rheumatology [address] [place] [address], [facility] [place] [address] Jasbir Guo MD [address] [place] [phone] Pending Results Name Type Priority Associated Diagnoses Date /Time QUANTIFERON-TB GOLD PLUS 4-TUBE Lab Routine Polyarthralgia Chronic fatigue 02/26/2025 10:15 AM CDT THYROID PEROXIDASE ANTIBODY Lab Routine Polyarthralgia Chronic fatigue 02/26/2025 10:15 AM CDT THYROGLOBULIN ANTIBODY Lab Routine Polyarthralgia Chronic fatigue 02/26/2025 10:15 AM CDT Scheduled Orders Name Type Priority Associated Diagnoses Orde r Schedule QUANTIFERON-TB GOLD PLUS 4-TUBE Lab Routine Polyarthralgia Chronic fatigue 1 Occurrences starting 02/26/2025 until 02/26/2026 THYROGLOBULIN ANTIBODY Lab Routine Polyarthralgia Chronic fatigue 1 Occurrences starting 02/26/2025 until 03/23/2026 documented as of this encounter Goals Goal Patient Goal Type Associated Problems Recent Progress Patient-Stated? Author Safety General On track( 1:56 PM SENIOR FRONT END ENGINEER) Keyonna Loo, RN Note: Expected end date: ongoing Interventions: Be aware of medications that could predispose you to falling Wear glasses/hearing aid Keep personal items within easy reach Medication Management General On track( 1:56 PM SENIOR FRONT END ENGINEER) Keyonna Loo, RN Note: Expected end date: [...] and drinks that are warm or cool documented as of this encounter Results * CK BLOOD (02/26/2025 10:15 AM CDT) CK Total 124 30 - 200 U/L 02/26/2025 11:36 AM CDT [facility] Blood BLOOD SPECIMEN / Unknown Lab Venipuncture / Unknown 02/26/2025 10:15 AM CDT 02/26/2025 10:32 AM CDT us Kath Oswald MD LAB - CHEMISTRY ORDERA BLES Final Result [facility] [address] [address], [facility] [phone] * RHEUMATOID FACTOR BLOOD QUANTITATIVE (02/26/2025 10:15 AM CDT) [facility] Rheumatoid Factor <15 <30 IU/mL 02/26/2025 11:48 AM CDT [facility] Rheumatoid Factor Screen Negative Negative 02/26/2025 11:48 AM CDT [facility] Blood BLOOD SPECIMEN / Unknown Lab Venipuncture / Unknown 02/26/2025 10:15 AM CDT 02/26/2025 10:24 AM CDT us Kath Oswald MD LAB - CHEMISTRY ORDERA BLES Final Result [address] [address], [facility] [phone] * CYCLIC CITRULLINATED PEPTIDE(CCP) AB IGG (02/26/2025 10:15 AM CDT) [facility] CCP Antibody IgG <0.5 <5.0 U/mL 02/26/2025 11:48 AM CDT [facility] Blood BLOOD SPECIMEN / Unknown Lab Venipuncture / Unknown 02/26/2025 10:15 AM CDT 02/26/2025 10:24 AM CDT us Kath Oswald MD LAB - CHEMISTRY ORDERA BLES Final Result [address] [address], [facility] [phone] * (ABNORMAL) HEPATITIS B SURFACE ANTIBODY QUANT (02/26/2025 10:15 AM CDT) [facility] Hepatitis B Virus Surface Antibody Reactive( A) Non-react [place] 02/26/2025 11:48 AM CDT [facility] Comment: > 12 mIU/mL Hepatitis B surface Antibody (HBsAb). Reactive for HBsAb - individual is considered immune to Hepatitis B Virus infection. Hepatitis B Surface Antibody Quantitative 28.7(H) <8.0 mIU/mL 02/26/2025 11:48 AM CDT [facility] Comment: Hepatitis B Surface Antibody Numeric Result Interpretation: Nonreactive: <8.0 mIU/mL Indeterminate: 8.0 - 12.0 mIU/mL Reactive: >12.0 mIU/mL Blood BLOOD SPECIMEN / Unknown Lab Venipuncture / Unknown 02/26/2025 10:15 AM CDT 02/26/2025 10:24 AM CDT Narrative [facility] - 02/26/2025 11:48 AM CDT This assay should not be used for blood, plasma, or tissue donor screening. This assay is not recommended for neonates born to HBV-infected or suspected HBV-infected mothers. Kath Oswald MD LAB - SEROLOGY ORDERAB LES Final Result Performing Organization Address [facility] Co de Phone Number [address] [address], [facility] [phone] * HEPATITIS C ANTIBODY (02/26/2025 10:15 AM CDT) Hepatitis C Antibody Non-react [place] Non-reac tive 02/26/2025 11:48 AM CDT [facility] Comment:Hepatitis C Antibody screen indicates no serologic evidence of past or current infection with Hepatitis C Virus. Patients with unexplained liver disease who are immunocompromised or suspected of having acute Hepatitis C infection may benefit from Nucleic Acid Test (SIMI) for Hepatitis C Viral RNA to confirm Hepatitis C status. Blood BLOOD SPECIMEN / Unknown Lab Venipuncture / Unknown 02/26/2025 10:15 AM CDT 02/26/2025 10:24 AM CDT Kath Oswald MD LAB - CHEMISTRY ORDERA BLES Final Result Performing Organization Address [facility]/ZIP Co de Phone Number [address] [address], [place] [phone] * HEPATITIS B CORE ANTIBODY TOTAL (02/26/2025 10:15 AM CDT) HBc Antibody Total Non-reacti ve Non-reacti ve 02/26/2025 11:48 AM CDT [facility] Blood BLOOD SPECIMEN / Unknown Lab Venipuncture / Unknown 02/26/2025 10:15 AM CDT 02/26/2025 10:24 AM CDT us Kath Oswald MD LAB - CHEMISTRY ORDERA BLES Final Result [address] [address], [place] [phone] * HEPATITIS B SURFACE ANTIGEN W RFLX CONFIRMATION (02/26/2025 10:15 AM CDT) Hepatitis B Virus Surface Antigen Non-reacti ve Non-reacti ve 02/26/2025 11:48 AM CDT [facility] Blood BLOOD SPECIMEN / Unknown Lab Venipuncture / Unknown 02/26/2025 10:15 AM CDT 02/26/2025 10:24 AM CDT us Kath Oswald MD LAB - CHEMISTRY ORDERA BLES Final Result Performing Organization Address City/[facility]/ZIP Co de Phone Number [address] [address], [place] [phone] * ERYTHROCYTE SEDIMENTATION RATE (02/26/2025 10:15 AM CDT) Erythrocyte Sedimentation Rate Westergren 6 0 - 20 MM/HR 02/26/2025 10:52 AM CDT [facility] Blood BLOOD SPECIMEN / Unknown Lab Venipuncture / Unknown 02/26/2025 10:15 AM CDT 02/26/2025 10:31 AM CDT us Kath Oswald MD LAB - HEMATOLOGY ORDER JONAS Final Result Performing Organization Address City/[facility]/ZIP Co de Phone Number [address] [address], [place] [phone] * C-REACTIVE PROTEIN (02/26/2025 10:15 AM CDT) Pathologist [facility] C-Reactive Protein <0.5 <=0.5 mg/dL 02/26/2025 11:41 AM [facility] Blood BLOOD SPECIMEN / Unknown Lab Venipuncture / Unknown 02/26/2025 10:15 AM CDT 02/26/2025 10:32 AM CDT us Kath Oswald MD LAB - CHEMISTRY ORDERA BLES Final Result [facility] [address] [place] [address], [facility] [phone] * COMPREHENSIVE METABOLIC PANEL (02/26/2025 10:15 AM CDT) Pathologist [facility] BUN 10 7 - 26 mg/dL 02/26/2025 11:47 AM [facility] Creatinine 0.66 0.56 - 0.96 mg/dL 02/26/2025 11:47 AM [facility] Sodium 138 136 - 145 mmol/L 02/26/2025 11:47 AM [facility] Potassium 4.0 3.5 - 4.5 mmol/L 02/26/2025 11:47 AM [facility] Chloride 102 98 - 107 mmol/L 02/26/2025 11:47 AM [facility] CO2 25 22 - 29 mmol/L 02/26/2025 11:47 AM [facility] Glucose 98 70 - 99 mg/dL 02/26/2025 11:47 AM [facility] Calcium 9.3 8.4 - 10.2 mg/dL 02/26/2025 11:47 AM [facility] Protein Total 7.0 6.0 - 8.3 g/dL 02/26/2025 11:47 AM [facility] Albumin 4.7 3.4 - 5.0 g/dL 02/26/2025 11:47 AM [facility] Bilirubin Total 0.3 0.2 - 1.2 mg/dL 02/26/2025 11:47 AM [facility] Alkaline Phosphatase 49 40 - 150 U/L 02/26/2025 11:47 AM [facility] ALT 14 5 - 55 U/L 02/26/2025 11:47 AM [facility] AST 16 5 - 34 U/L 02/26/2025 11:47 AM [facility] Anion Gap 11 6 - 16 02/26/2025 11:47 AM [facility] BUN/Creatinine Ratio 15 7 - 23 02/26/2025 11:47 AM [facility] Osmolality Calculated 285 275 - 295 mOsm/kg 02/26/2025 11:47 AM [facility] Albumin/Globulin Ratio 2.0 1.1 - 2.3 02/26/2025 11:47 AM [facility] eGFR by CKD-EPI >90 >=90 mL/min/1.7 3 m2 02/26/2025 11:47 AM [facility] Comment:Estimated Glomerular Filtration Rate (eGFR) calculated using the CKD-EPI Creatinine Equation (2020), per the National Kidney Foundation and [place] [employer] Nephrology recommendations. Blood BLOOD SPECIMEN / Unknown Lab Venipuncture / Unknown 02/26/2025 10:15 AM CDT 02/26/2025 10:32 AM [facility] us Kath Oswald MD LAB - CHEMISTRY ORDERA BLES Final Result [facility] [address] [place] [address], [facility] [phone] * (ABNORMAL) CBC WITH DIFFERENTIAL (02/26/2025 10:15 AM CD) WBC 11.2(H) 4.0 - 10.7 x10E9/L 02/26/2025 10:39 AM [facility] RBC Count 4.98 3.90 - 5.20 x10E12/L 02/26/2025 10:39 AM [facility] Hemoglobin 15.1 11.9 - 15.8 g/dL 02/26/2025 10:39 AM [facility] Hematocrit 44.5 34.8 - 46.1 % 02/26/2025 10:39 AM [facility] MCV 89.4 80.0 - 98.0 fL 02/26/2025 10:39 AM [facility] MCH 30.3 26.7 - 33.6 pg 02/26/2025 10:39 AM [facility] MCHC 33.9 31.7 - 36.3 g/dL 02/26/2025 10:39 AM [facility] RDW-CV 12.1 11.3 - 14.8 % 02/26/2025 10:39 AM [facility] Platelet Count 323 150 - 420 x10E9/L 02/26/2025 10:39 AM [facility] MPV 10.1 7.8 - 11.4 fL 02/26/2025 10:39 AM [facility] Neutrophil % 71.0 41.0 - 74.0 % 02/26/2025 10:39 AM [facility] Lymphocyte % 19.1 17.0 - 47.0 % 02/26/2025 10:39 AM [facility] Monocyte % 5.2 3.0 - 11.0 % 02/26/2025 10:39 AM [facility] Eosinophil % 2.6 0.0 - 7.0 % 02/26/2025 10:39 AM [facility] Basophil % 0.9 0.0 - 1.6 % 02/26/2025 10:39 AM [facility] Immature Granulocytes % 1.2(H) 0.0 - 1.0 % 02/26/2025 10:39 AM [facility] Neutrophil Absolute 7.97(H) 1.60 - 7.50 x10E9/L 02/26/2025 10:39 AM [facility] Lymphocyte Absolute 2.14 1.00 - 4.40 x10E9/L 02/26/2025 10:39 AM [facility] Monocyte Absolute 0.58 0.15 - 1.00 x10E9/L 02/26/2025 10:39 AM [facility] Eosinophil Absolute 0.29 0.00 - 0.60 x10E9/L 02/26/2025 10:39 AM CDT [facility] Basophil Absolute 0.10 0.00 - 0.13 x10E9/L 02/26/2025 10:39 AM CDT [facility] Blood BLOOD SPECIMEN / Unknown Lab Venipuncture / Unknown 02/26/2025 10:15 AM CDT 02/26/2025 10:31 AM CDT Kath Oswald MD LAB - HEMATOLOGY ORDER JONAS Final Result [facility] [address] [place] [address], [facility] [phone] * XR Foot Right 3Vw or More (02/26/2025 10:02 AM CDT) Anatomical Region Laterality Modality Ankle / Foot Digital Radiogra phy 02/26/2025 10:4 4 AM CDT Impressions 02/26/2025 10:45 AM CDT IMPRESSION: Tiny posterior calcaneal spurs. Otherwise normal appearing examination.. > Interpreting Provider: Sam Cates MD on 02/26/2025 10:45 AM Narrative 02/26/2025 10:45 AM CDT PROCEDURE: XR FOOT RIGHT 3VW OR MORE COMPARISON: No relevant available comparison. CLINICAL INFORMATION (none relevant/not provided if blank): Indication: M25.50: Polyarthralgia R53.82: Chronic fatigue Additional History: FINDINGS: 3 view nonweightbearing study of the right foot was performed to include AP, internal rotation and lateral views. Bony mineralization appeared normal. There is no evidence of fracture, dislocation, erosive changes, bone or joint space destruction nor periosteal reaction. Tiny posterior calcaneal spurs noted at the plantar fascia and Achilles tendon insertion sites. Procedure Note Sam Cates MD - 02/26/2025 PROCEDURE: XR FOOT RIGHT 3VW OR MORE COMPARISON: No relevant available comparison. CLINICAL INFORMATION (none relevant/not provided if blank): Indication: M25.50: Polyarthralgia R53.82: Chronic fatigue Additional History: FINDINGS: 3 view nonweightbearing study of the right foot was performed to include AP, internal rotation and lateral views. Bony mineralization appeared normal. There is no evidence of fracture, dislocation, erosive changes, bone or joint space destruction nor periosteal reaction. Tiny posterior calcaneal spurs noted at the plantar fascia and Achilles tendon insertion sites. IMPRESSION: Tiny posterior calcaneal spurs. Otherwise normal appearing examination.. > Interpreting Provider: Sam Cates MD on 02/26/2025 10:45 AM Kath Oswald MD DIAGNOSTIC IMAGING ORD ERABLES Final Result * XR Foot Left 3Vw or More (02/26/2025 10:02 AM CDT) Anatomical Region Laterality Modality Ankle / Foot Digital Radiogra phy 02/26/2025 10:4 5 AM CDT Impressions 02/26/2025 10:47 AM CDT IMPRESSION: Small posterior calcaneal spurs. No evidence of osseous demineralization, erosive changes nor bone or joint space destructive process. . > Interpreting Provider: Sam Cates MD on 02/26/2025 10:47 AM Narrative 02/26/2025 10:47 AM CDT PROCEDURE: XR FOOT LEFT 3VW OR MORE COMPARISON: No relevant available comparison. CLINICAL INFORMATION (none relevant/not provided if blank): Indication: M25.50: Polyarthralgia R53.82: Chronic fatigue Additional History: FINDINGS: AP, internal rotation and lateral views of the left foot were obtained nonweightbearing. There is no evidence of fracture, dislocation, erosive changes, bony demineralization or osseous malalignment. Small posterior calcaneal spurs seen at the plantar fascia and Achilles tendon insertion sites. Small bony exostosis arises from the dorsal aspect of the neck of the talus. Procedure Note Sam Cates MD - 02/26/2025 PROCEDURE: XR FOOT LEFT 3VW OR MORE COMPARISON: No relevant available comparison. CLINICAL INFORMATION (none relevant/not provided if blank): Indication: M25.50: Polyarthralgia R53.82: Chronic fatigue Additional History: FINDINGS: AP, internal rotation and lateral views of the left foot were obtained nonweightbearing. There is no evidence of fracture, dislocation, erosive changes, bony demineralization or osseous malalignment. Small posterior calcaneal spurs seen at the plantar fascia and Achilles tendon insertion sites. Small bony exostosis arises from the dorsal aspect of the neck of the talus. IMPRESSION: Small posterior calcaneal spurs. No evidence of osseous demineralization, erosive changes nor bone orjoint space destructive process. . > Interpreting Provider: Sam Cates MD on 02/26/2025 10:47 AM Kath Oswald MD DIAGNOSTIC IMAGING ORD ERABLES Final Result * XR Wrist Right 2Vw (02/26/2025 10:02 AM CDT) Anatomical Region Laterality Modality Wrist / Hand Digital Radiogra phy 02/26/2025 11:0 2 AM CDT Impressions 02/26/2025 11:05 AM CDT IMPRESSION: Two small 3 to 4 mm metallic linear foreign bodies which superimpose the proximal aspect of the third metacarpal bone on the PA projection and appearing to be somewhat anteriorly located on the lateral view presumably in the palmar soft tissues. Otherwise normal appearing examination.. > Interpreting Provider: Sam Cates MD on 02/26/2025 11:05 AM Narrative 02/26/2025 11:05 AM CDT PROCEDURE: XR WRIST RIGHT 2VW COMPARISON: No relevant available comparison. CLINICAL INFORMATION (none relevant/not provided if blank): Indication: M25.50: Polyarthralgia R53.82: Chronic fatigue Additional History: FINDINGS: Limited PA and lateral views of the right wrist were obtained. There is an approximate 3 to 4 mm in length linear radiopaque foreign body superimposing the palmar soft tissues overlying the proximal shaft of the third metacarpal bone. There is a similar-appearing obliquely oriented 3 to 4 mm in length linear radiopaque foreign body superimposing the proximal aspect of the shaft/base region of the third metacarpal bone. These are somewhat ventrally located on the lateral view. Otherwise the right wrist articulations appear intact. The carpal bones and carpal arcs appear intact. No evidence of fracture, dislocation, erosive changes, avascular necrosis nor bony demineralization is identified. Procedure Note Sam Cates MD - 02/26/2025 PROCEDURE: XR WRIST RIGHT 2VW COMPARISON: No relevant available comparison. CLINICAL INFORMATION (none relevant/not provided if blank): Indication: M25.50: Polyarthralgia R53.82: Chronic fatigue Additional History: FINDINGS: Limited PA and lateral views of the right wrist were obtained. There isan approximate 3 to 4 mm in length linear radiopaque foreign body superimposing the palmar soft tissues overlying the proximal shaft ofthe third metacarpal bone. There is a similar-appearing obliquely oriented 3to 4 mm in length linear radiopaque foreign body superimposing the proximal aspect of the shaft/base region of the third metacarpal bone. These are somewhat ventrally located on the lateral view. Otherwise the right wrist articulations appear intact. The carpal bonesand carpal arcs appear intact. No evidence of fracture, dislocation, erosive changes, avascular necrosis nor bony demineralization is identified. IMPRESSION: Two small 3 to 4 mm metallic linear foreign bodies which superimpose the proximal aspect of the third metacarpal bone on the PA projection and appearing to be somewhat anteriorly located on thelateral view presumably in the palmar soft tissues. Otherwise normal appearing examination.. > Interpreting Provider: Sam Cates MD on 02/26/2025 11:05 AM Kath Oswald MD DIAGNOSTIC IMAGING ORD ERABLES Final Result * XR Wrist Left 2Vw (02/26/2025 10:02 AM CDT) Anatomical Region Laterality Modality Wrist / Hand Digital Radiogra phy 02/26/2025 10:4 7 AM CDT Impressions 02/26/2025 10:50 AM CDT IMPRESSION: Best appreciated on the lateral view is incomplete dorsally located osteophytic bridging thought to localize the level of the second carpometacarpal articulation. . > Interpreting Provider: Sam Cates MD on 02/26/2025 10:50 AM Narrative 02/26/2025 10:50 AM CDT PROCEDURE: XR WRIST LEFT 2VW COMPARISON: No relevant available comparison. CLINICAL INFORMATION (none relevant/not provided if blank): Indication: M25.50: Polyarthralgia R53.82: Chronic fatigue Additional History: FINDINGS: Limited 2 view PA and lateral study of the left wrist was performed. Best appreciated on the lateral view is incomplete dorsally located osteophytic bridging thought to localize to the level of the second carpometacarpal articulation. Bony mineralization is otherwise normal. The left wrist articulations appear intact. No erosive changes nor bone or joint space destruction is identified. Procedure Note Sam Cates MD - 02/26/2025 PROCEDURE: XR WRIST LEFT 2VW COMPARISON: No relevant available comparison. CLINICAL INFORMATION (none relevant/not provided if blank): Indication: M25.50: Polyarthralgia R53.82: Chronic fatigue Additional History: FINDINGS: Limited 2 view PA and lateral study of the left wrist was performed. Best appreciated on the lateral view is incomplete dorsally located osteophytic bridging thought to localize to the level of thesecond carpometacarpal articulation. Bony mineralization is otherwise normal. The left wrist articulations appear intact. No erosive changes nor bone or joint space destruction is identified. IMPRESSION: Best appreciated on the lateral view is incomplete dorsally located osteophytic bridging thought to localize the level of the second carpometacarpal articulation. . > Interpreting Provider: Sam Cates MD on 02/26/2025 10:50 AM Kath Oswald MD DIAGNOSTIC IMAGING ORD ERABLES Final Result * XR Hip Right 2Vw or More (02/26/2025 10:02 AM CDT) Anatomical Region Laterality Modality Pelvis, Lower Extremity Digital Radiography 02/26/2025 10:4 2 AM CDT Impressions 02/26/2025 10:43 AM CDT IMPRESSION: Normal-appearing 2 view study of the right hip. . > Interpreting Provider: Sam Cates MD on 02/26/2025 10:43 AM Narrative 02/26/2025 10:43 AM CDT PROCEDURE: XR HIP RIGHT 2VW OR MORE COMPARISON: No relevant available comparison. CLINICAL INFORMATION (none relevant/not provided if blank): Indication: M25.50: Polyarthralgia R53.82: Chronic fatigue Additional History: FINDINGS: AP and frog-lateral views of the right hip were obtained and shows no evidence of fracture, dislocation, joint space narrowing or widening, erosive changes nor evidence of avascular necrosis. Bony mineralization appeared normal. Procedure Note Seelig, Sam D, MD - 02/26/2025 PROCEDURE: XR HIP RIGHT 2VW OR MORE COMPARISON: No relevant available comparison. CLINICAL INFORMATION (none relevant/not provided if blank): Indication: M25.50: Polyarthralgia R53.82: Chronic fatigue Additional History: FINDINGS: AP and frog-lateral views of the right hip were obtained and shows no evidence of fracture, dislocation, joint space narrowing or widening, erosive changes nor evidence of avascular necrosis. Bony mineralization appeared normal. IMPRESSION: Normal-appearing 2 view study of the right hip. . > Interpreting Provider: Sam Cates MD on 02/26/2025 10:43 AM Kath Oswald MD DIAGNOSTIC IMAGING ORD ERABLES Final Result * XR Hip Left 2Vw or More (02/26/2025 10:02 AM CDT) Anatomical Region Laterality Modality Pelvis, Lower Extremity Digital Radiography 02/26/2025 10:4 3 AM CDT Impressions 02/26/2025 10:44 AM CDT IMPRESSION: Minimal spurring of the superior lateral left acetabular rim.. > Interpreting Provider: Sam Cates MD on 02/26/2025 10:44 AM Narrative 02/26/2025 10:44 AM CDT PROCEDURE: XR HIP LEFT 2VW OR MORE COMPARISON: No relevant available comparison. CLINICAL INFORMATION (none relevant/not provided if blank): Indication: M25.50: Polyarthralgia R53.82: Chronic fatigue Additional History: FINDINGS: AP and frog-lateral views of the left hip were obtained and demonstrates minimal spurring of the superior lateral acetabular rim. There is no evidence of fracture, dislocation, erosive changes, evidence of avascular necrosis nor bony demineralization. Left hip joint space appears normal. Procedure Note Sam Cates MD - 02/26/2025 PROCEDURE: XR HIP LEFT 2VW OR MORE COMPARISON: No relevant available comparison. CLINICAL INFORMATION (none relevant/not provided if blank): Indication: M25.50: Polyarthralgia R53.82: Chronic fatigue Additional History: FINDINGS: AP and frog-lateral views of the left hip were obtained and demonstrates minimal spurring of the superior lateral acetabular rim. There is no evidence of fracture, dislocation, erosive changes, evidence ofavascular necrosis nor bony demineralization. Left hip joint space appears normal. IMPRESSION: Minimal spurring of the superior lateral left acetabularrim.. > Interpreting Provider: Sam Cates MD on 02/26/2025 10:44 AM Kath Oswald MD DIAGNOSTIC IMAGING ORD ERABLES Final Result * XR SI Joints 3Vw or More (02/26/2025 10:02 AM CDT) Anatomical Region Laterality Modality Pelvis, Lower Extremity Digital Radiography 02/26/2025 10:4 1 AM CDT Impressions 02/26/2025 10:42 AM CDT IMPRESSION: Normal-appearing 3 view study of the sacroiliac joints.. > Interpreting Provider: Sam Cates MD on 02/26/2025 10:42 AM Narrative 02/26/2025 10:42 AM CDT PROCEDURE: XR SI JOINTS 3VW OR MORE COMPARISON: No relevant available comparison. CLINICAL INFORMATION (none relevant/not provided if blank): Indication: M25.50: Polyarthralgia R53.82: Chronic fatigue Additional History: FINDINGS: AP and bilateral oblique views of the sacroiliac joints were obtained. The sacroiliac joints appear to be patent and normal in width. There is no evidence of significant sclerotic changes, periarticular erosion, nor fusion across either sacroiliac joint. The femoral heads are smooth in contour and in normal anatomic relationship to their respective acetabula. Hip joint spaces bilaterally appear intact. Procedure Note Sam Cates MD - 02/26/2025 PROCEDURE: XR SI JOINTS 3VW OR MORE COMPARISON: No relevant available comparison. CLINICAL INFORMATION (none relevant/not provided if blank): Indication: M25.50: Polyarthralgia R53.82: Chronic fatigue Additional History: FINDINGS: AP and bilateral oblique views of the sacroiliac joints were obtained.The sacroiliac joints appear to be patent and normal in width. There is no evidence of significant sclerotic changes, periarticular erosion, nor fusion across either sacroiliac joint. The femoral heads are smooth in contour and in normal anatomicrelationship to their respective acetabula. Hip joint spaces bilaterally appearintact. IMPRESSION: Normal-appearing 3 view study of the sacroiliac joints.. > Interpreting Provider: Sam Cates MD on 02/26/2025 10:42 AM Kath Eugene Oswald MD DIAGNOSTIC IMAGING ORD ERABLES Final Result * XR Hand Right 3Vw or More (02/26/2025 10:02 AM CDT) Anatomical Region Laterality Modality Wrist / Hand Digital Radiogra phy 02/26/2025 11:0 6 AM CDT Impressions 02/26/2025 11:08 AM CDT IMPRESSION: Normal appearing examination except for the presence of 2 linear metallic foreign bodies again seen in relationship to the palmar soft tissues localizing to the level of the third metacarpal bone. Suggestion of an old healed fracture of the proximal to midshaft of the fifth metacarpal bone. > Interpreting Provider: Sam Cates MD on 02/26/2025 11:08 AM Narrative 02/26/2025 11:08 AM CDT PROCEDURE: XR HAND RIGHT 3VW OR MORE COMPARISON: No relevant available comparison. CLINICAL INFORMATION (none relevant/not provided if blank): Indication: M25.50: Polyarthralgia R53.82: Chronic fatigue Additional History: FINDINGS: 3 views of the right hand were obtained to include PA, AP and lateral views. The previously visualized two linear 3 to 4 mm in length metallic foreign bodies again seen in relationship to the proximal aspect of the third metacarpal bone. Otherwise the osseous structures and articulations appear intact and relatively normal in appearance. Bony mineralization is normal. No evidence of fracture, dislocation, erosive changes nor bone or joint space destruction identified. Procedure Note Sam Cates MD - 02/26/2025 PROCEDURE: XR HAND RIGHT 3VW OR MORE COMPARISON: No relevant available comparison. CLINICAL INFORMATION (none relevant/not provided if blank): Indication: M25.50: Polyarthralgia R53.82: Chronic fatigue Additional History: FINDINGS: 3 views of the right hand were obtained to include PA, AP and lateral views. The previously visualized two linear 3 to 4 mm in length metallic foreign bodies again seen in relationship to the proximal aspect of the third metacarpal bone. Otherwise the osseous structures and articulations appear intact and relatively normal in appearance. Bony mineralization is normal. Noevidence of fracture, dislocation, erosive changes nor bone or joint space destruction identified. IMPRESSION: Normal appearing examination except for the presence of 2 linear metallic foreign bodies again seen in relationship to the palmar soft tissues localizing to the level of the third metacarpal bone. Suggestion of an old healed fracture of the proximal to midshaft of the fifth metacarpal bone. > Interpreting Provider: Sam Cates MD on 02/26/2025 11:08 AM Kath Oswald MD DIAGNOSTIC IMAGING ORD ERABLES Final Result * XR Hand Left 3Vw or More (02/26/2025 10:02 AM CDT) Anatomical Region Laterality Modality Wrist / Hand Digital Radiogra phy 02/26/2025 10:5 0 AM CDT Impressions 02/26/2025 10:51 AM CDT IMPRESSION: Dorsally located incomplete osteophytic spurring or bridging seen in relationship to the second carpometacarpal articulation. Otherwise normal appearing examination. . > Interpreting Provider: Sam Cates MD on 02/26/2025 10:51 AM Narrative 02/26/2025 10:51 AM CDT PROCEDURE: XR HAND LEFT 3VW OR MORE COMPARISON: No relevant available comparison. CLINICAL INFORMATION (none relevant/not provided if blank): Indication: M25.50: Polyarthralgia R53.82: Chronic fatigue Additional History: FINDINGS: 3 views of the left hand were obtained to include PA, AP and lateral views. There is again incomplete dorsally located osteophytic bridging thought to localize to the level of the second carpometacarpal articulation. Bony mineralization appears normal. The metacarpal bones and phalanges appear intact and normally aligned. No erosive changes nor bone or joint space destructive process is identified. Procedure Note Sam Cates MD - 02/26/2025 PROCEDURE: XR HAND LEFT 3VW OR MORE COMPARISON: No relevant available comparison. CLINICAL INFORMATION (none relevant/not provided if blank): Indication: M25.50: Polyarthralgia R53.82: Chronic fatigue Additional History: FINDINGS: 3 views of the left hand were obtained to include PA, AP and lateral views. There is again incomplete dorsally located osteophytic bridging thought to localize to the level of the second carpometacarpal articulation. Bony mineralization appears normal. The metacarpal bones and phalanges appear intact and normally aligned. No erosive changes nor bone or joint space destructive process is identified. IMPRESSION: Dorsally located incomplete osteophytic spurring or bridging seen in relationship to the second carpometacarpal articulation. Otherwise normal appearing examination. . > Interpreting Provider: Sam Cates MD on 02/26/2025 10:51 AM us Kath Oswald MD DIAGNOSTIC IMAGING ORD ERABLES Final Result documented in this encounter Visit Diagnoses Diagnosis Polyarthralgia- Primary Pain in joint, multiple sites Chronic fatigue Other malaise and fatigue Polyarthralgia Pain in joint, multiple sites Chronic fatigue Other malaise and fatigue documented in this encounter Care Teams Photostatic Copy Maker Relationship Specialty Start Date End Date Nyasia Arauz MD [address] [place] [id number] PCP - General Family Medicine 01/24/24 documented as of this encounter
--- OUTSIDE RECORDS SUMMARY | 2025-02-26 09:47 | XMS_ITS | Encounter Summary ---
Author Organization [facility] Address [address] [place] [address] Care Team Providers Care Pot Washer Name Role Phone Nyasia Arauz MD Primary Care Provider [phone] Encounter Details Date Type Department Care Team (Latest Contact Info) Description 02/26/2025 9:47 AM CDT - 02/26/2025 9:48 AM CDT Hospital Encounter [facility] DIAGNOSTIC RAD OP [address] [place] [phone] Kath Oswald MD [address] [address] Discharge Disposition: Home or Self Care Social History Tobacco Use Types Packs/Day Years Used Date Smoking Tobacco: Former Cigarettes 0.3 19 Smokeless Tobacco: Never Alcohol Use Standard Drinks/Week Comments No 0 (1 standard drink = 0.6 oz pur e alcohol) Comments No Sex and Gender Information Value Date Recorded Sex Assigned at Not on file Legal Sex Female 7:24 AM CDT Gender Identity Female 09/05/2021 11:57 AM CDT Sexual Orientation Straight 09/05/2021 11 :57 AM CDT documented as of this encounter Functional Status * Is person [...] of Assessment Author No 10/30/2013 9:01 AM Sahara Faye RN * Does person have difficulty dressing/bathing? Answer Date of Assessment Author No 10/30/2013 9:01 AM Sahara Faye RN * Does person have difficulty doing errands alone? Answer Date of Assessment Author No 10/30/2013 9:01 AM Sahara Faye RN documented as of this encounter Mental Status * Does person have difficulty concentrating/remembering/making decisions? Answer Entry Date Author No 10/30/2013 9:01 AM Sahara Faye RN documented in this encounter Medications at Time of Discharge baclofen (Lioresal) 10 MG tablet Take 0.5 (one-half) tablet by mouth 2 times daily busPIRone (Buspar) 30 MG tablet Take 1 (one) tablet by mouth 2 times daily Caplyta 42 MG capsule cetirizine (ZYRTEC) 10 MG tablet Take 1 (one) tablet by mouth once daily 04/22/2020 clobetasol (Temovate) 0.05 % creamIndications :Psoriasis Apply to affected areas of skin two times per day as needed to arms and legs for psoriasis 60 g 1 01/24/2024 clobetasol (Temovate) 0.05 % solutionIndicati ons:Psoriasis Apply to affected areas of skin two times per day as needed to scalp for psoriasis 50 mL 1 01/24/2024 estradiol (Estrace) 0.5 MG tablet Take 1 (one) Half Tablet by mouth once daily fluticasone propionate (FLONASE) 50 MCG/ACT nasal spray 11/26/2020 losartan (Cozaar) 50 MG tablet .COMPLEX 05/27/2024 meclizine (Antivert) 25 MG tablet TWICE A DAY as needed for dizziness 12/19/2024 metoprolol tartrate IR (Lopressor) 25 MG tablet Take 1 (one) tablet by mouth once daily 09/03/2024 naproxen (Naprosyn) 500 MG tablet Take 1 (one) tablet by mouth 2 times daily 180 tablet 02/26/2025 ondansetron, disintegrating, (ZOFRAN ODT) 4 MG tablet 02/17/2021 OXcarbazepine (Trileptal) 300 MG tablet Take 1 (one) tablet by mouth 2 times daily Qulipta 30 MG TABS risperiDONE (RisperDAL) 0.25 MG tablet Take 1 (one) tablet by mouth once daily documented as of this encounter Plan of Treatment Upcoming Encounters Date Type Department Care Team (Late st Contact Info) Description 04/09/2025 10:00 AM CDT Office Visit [facility] - Rheumatology [address] [place] [address], [place] [phone] Jasbir Guo MD [address] [place] [phone] documented as of this encounter Goals Goal Patient Goal Type Associated Problems Recent Progress Patient-Stated? 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 TECHNICIAN) Keyonna Loo, JESSIKA Note: Expected end date: ongoing Interventions: Let [...] or cool documented as of this encounter Procedures Procedure Name Priority Date/Time Associated Diagnosis Comments XR FOOT RIGHT 3VW OR MORE Routine 02/26/2025 10:02 AM CDT Polyarthralgia Chronic fatigue XR FOOT LEFT 3VW OR MORE Routine 02/26/2025 10:02 AM CDT Polyarthralgia Chronic fatigue XR HIP RIGHT 2VW OR MORE Routine 02/26/2025 10:02 AM CDT Polyarthralgia Chronic fatigue XR HIP LEFT 2VW OR MORE Routine 02/26/2025 10:02 AM CDT Polyarthralgia Chronic fatigue XR HAND RIGHT 3VW OR MORE Routine 02/26/2025 10:02 AM CDT Polyarthralgia Chronic fatigue XR HAND LEFT 3VW OR MORE Routine 02/26/2025 10:02 AM CDT Polyarthralgia Chronic fatigue XR WRIST RIGHT 2VW Routine 02/26/2025 10 :02 AM CDT Polyarthralgia Chronic fatigue XR WRIST LEFT 2VW Routine 02/26/2025 10: 02 AM CDT Polyarthralgia Chronic fatigue XR SI JOINTS 3VW OR MORE Routine 02/26/2025 10:02 AM CDT Polyarthralgia Chronic fatigue documented in this encounter Results * XR Foot Right 3Vw or More [...] necrosis. Bony mineralization appeared normal. Procedure Note Sam Cates MD - 02/26/2025 PROCEDURE: XR HIP RIGHT [...] the sacroiliac joints.. > Interpreting Provider: Sam aCtes MD on 02/26/2025 10:42 AM Narrative 02/26/2025 [...] Cates MD on 02/26/2025 10:42 AM Kath Oswald MD DIAGNOSTIC IMAGING ORD [...] Sam Cates MD on 02/26/2025 10:51 AM Kath Oswald MD DIAGNOSTIC IMAGING ORD ERABLES Final Result documented in this encounter Visit Diagnoses Diagnosis Polyarthralgia Pain in joint, multiple sites Chronic fatigue Other malaise and fatigue documented in this encounter Care Teams Pot Washer Relationship Specialty Start Date End Date Nyasia Arauz MD [address] [place] [phone] PCP - General Family Medicine 01/24/24 documented as of this encounter
--- OUTSIDE RECORDS SUMMARY | 2025-02-26 10:09 | XMS_ITS | Encounter Summary ---
Author Organization [facility] Address [address] [place] [address] Care Team Providers Care Fitting Room Operator Name Role Phone Nyasia Arauz MD Primary Care Provider [phone] Encounter Details Date Type Department Care Team (Latest Contact Info) Description 02/26/2025 10:09 AM CDT - 02/26/2025 11:59 PM CDT Hospital Encounter [facility] [address] [place] [id number] Kath Oswald MD [address] [place] [address] Discharge Disposition: Home or Self [...] Description 04/09/2025 10:00 AM CDT Office Visit [facility] - Rheumatology [address] [place] [address], [facility] [place] [address] Jasbir Guo MD [address] [place] [phone] Pending Results Name Type Priority Associated Diagnoses Date /Time ALVINA BLOOD SCREEN W/REFLEX TITER Lab Routine Polyarthralgia Chronic fatigue 02/26/2025 10:15 AM CDT QUANTIFERON-TB GOLD PLUS 4-TUBE Lab Routine Polyarthralgia Chronic fatigue 02/26/2025 10:15 AM CDT THYROGLOBULIN ANTIBODY Lab Routine Polyarthralgia Chronic fatigue 02/26/2025 10:15 AM CDT Scheduled Orders Name Type Priority Associated Diagnoses Orde r Schedule ALVINA BLOOD SCREEN W/REFLEX TITER Lab Routine Polyarthralgia Chronic fatigue 1 Occurrences starting 02/26/2025 until 02/21/2026 QUANTIFERON-TB GOLD PLUS 4-TUBE Lab Routine Polyarthralgia Chronic fatigue 1 Occurrences starting 02/26/2025 until 02/26/2025 THYROGLOBULIN ANTIBODY Lab Routine Polyarthralgia Chronic fatigue 1 Occurrences starting 02/26/2025 until 02/26/2025 ALVINA BLOOD SCREEN W/REFLEX TITER Lab Routine Polyarthralgia Chronic fatigue 1 Occurrences starting 02/26/2025 until 02/26/2025 documented as of this encounter Goals Goal Patient Goal Type Associated Problems Recent Progress Patient-Stated? 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) Keyonna Loo, RN Note: Expected end date: [...] Name Priority Date/Time Associated Diagnosis Comments HEPATITIS B SURFACE ANTIBODY QUANT Routine 02/26/2025 10:15 AM CDT Polyarthralgia Chronic fatigue RHEUMATOID FACTOR BLOOD QUANTITATIVE Routine 02/26/2025 10:15 AM CDT Polyarthralgia Chronic fatigue C-REACTIVE PROTEIN Routine 02/26/2025 10 :15 AM CDT Polyarthralgia Chronic fatigue CYCLIC CITRULLINATED PEPTIDE(CCP) AB IGG Routine 02/26/2025 10:15 AM CDT Polyarthralgia Chronic fatigue ERYTHROCYTE SEDIMENTATION RATE Routine 02/26/2025 10:15 AM CDT Polyarthralgia Chronic fatigue CBC W AUTO DIFFERENTIAL Routine 02/26/2025 10:15 AM CDT Polyarthralgia Chronic fatigue COMPREHENSIVE METABOLIC PANEL Routine 02/26/2025 10:15 AM CDT Polyarthralgia Chronic fatigue HEPATITIS B CORE ANTIBODY TOTAL Routine 02/26/2025 10:15 AM CDT Polyarthralgia Chronic fatigue HEPATITIS B SURFACE ANTIGEN W RFLX CONFIRMATION Routine 02/26/2025 10:15 AM CDT Polyarthralgia Chronic fatigue CK BLOOD Routine 02/26/2025 10:15 AM CDT Polyarthralgia Chronic fatigue HEPATITIS C ANTIBODY Routine 02/26/2025 10:15 AM CDT Polyarthralgia Chronic fatigue documented in this encounter Results * CK BLOOD (02/26/2025 10:15 AM CDT) CK Total 124 30 - 200 U/L 02/26/2025 11:36 AM CDT [facility] Blood BLOOD SPECIMEN / Unknown Lab Venipuncture / Unknown 02/26/2025 10:15 AM CDT 02/26/2025 10:32 AM CDT Kath Oswald MD LAB - CHEMISTRY ORDERA BLES Final Result Performing Organization Address City/[facility]/ZIP Co de Phone Number [address] [address], [facility] [phone] * RHEUMATOID FACTOR BLOOD QUANTITATIVE (02/26/2025 10:15 AM CDT) Rheumatoid Factor <15 <30 IU/mL 02/26/2025 11:48 AM CDT [facility] Rheumatoid Factor Screen Negative Negative 02/26/2025 11:48 AM CDT [facility] Blood BLOOD SPECIMEN / Unknown Lab Venipuncture / Unknown 02/26/2025 10:15 AM CDT 02/26/2025 10:24 AM CDT Kath Oswald MD LAB - CHEMISTRY ORDERA BLES Final Result [address] [address], [place] [phone] * CYCLIC CITRULLINATED PEPTIDE(CCP) AB IGG (02/26/2025 10:15 AM CDT) CCP Antibody IgG <0.5 <5.0 U/mL 02/26/2025 11:48 AM CDT [facility] Blood BLOOD SPECIMEN / Unknown Lab Venipuncture / Unknown 02/26/2025 10:15 AM CDT 02/26/2025 10:24 AM CDT Kath Oswald MD LAB - CHEMISTRY ORDERA BLES Final Result Performing Organization Address City/[facility]/ZIP Co de Phone Number [address] [address], [facility] [phone] * (ABNORMAL) HEPATITIS B SURFACE ANTIBODY QUANT (02/26/2025 10:15 AM CDT) Hepatitis B Virus Surface Antibody Reactive( A) Non-react [place] 02/26/2025 11:48 AM CDT [facility] Comment: > 12 mIU/mL Hepatitis B surface Antibody (HBsAb). Reactive for HBsAb - individual is considered immune to Hepatitis B Virus infection. Hepatitis B Surface Antibody Quantitative 28.7(H) <8.0 mIU/mL 02/26/2025 11:48 AM CDT [facility] Comment: Hepatitis B Surface Antibody Numeric Result Interpretation: Nonreactive: <8.0 mIU/mL Indeterminate: 8.0 - 12.0 mIU/mL Reactive: >12.0 mIU/mL Blood BLOOD SPECIMEN / Unknown Lab Venipuncture / Unknown 02/26/2025 10:15 AM CDT 02/26/2025 10:24 AM CDT Narrative [facility] - 02/26/2025 11:48 AM CDT This assay should not be used for blood, plasma, or tissue donor screening. This assay is not recommended for neonates born to HBV-infected or suspected HBV-infected mothers. Kath Oswald MD LAB - SEROLOGY ORDERAB LES Final Result [address] [address], [facility] [phone] * HEPATITIS C ANTIBODY (02/26/2025 10:15 AM CDT) Hepatitis C Antibody Non-react [place] Non-reac tive 02/26/2025 11:48 AM CDT [facility] Comment:Hepatitis C Antibody screen indicates no [...] LAB - CHEMISTRY ORDERA BLES Final Result [address] [address], [place] [phone] * HEPATITIS B CORE ANTIBODY TOTAL (02/26/2025 10:15 AM CDT) HBc Antibody Total Non-reacti ve Non-reacti ve 02/26/2025 11:48 AM CDT [facility] Blood BLOOD SPECIMEN / Unknown Lab Venipuncture / Unknown 02/26/2025 10:15 AM CDT 02/26/2025 10:24 AM CDT us Kath Oswald MD LAB - CHEMISTRY ORDERA BLES Final Result Performing Organization Address City/[facility]/ZIP Co de Phone Number [address] [address], [place] [phone] * HEPATITIS B SURFACE ANTIGEN W RFLX CONFIRMATION (02/26/2025 10:15 AM CDT) Hepatitis B Virus Surface Antigen Non-reacti ve Non-reacti ve 02/26/2025 11:48 AM CDT [facility] Blood BLOOD SPECIMEN / Unknown Lab Venipuncture / Unknown 02/26/2025 10:15 AM CDT 02/26/2025 10:24 AM CDT us Kath Oswald MD LAB - CHEMISTRY ORDERA BLES Final Result [address] [address], [place] [phone] * ERYTHROCYTE SEDIMENTATION RATE (02/26/2025 10:15 AM CDT) [facility] Erythrocyte Sedimentation Rate Westergren 6 0 - 20 MM/HR 02/26/2025 10:52 AM CDT [facility] Blood BLOOD SPECIMEN / Unknown Lab Venipuncture / Unknown 02/26/2025 10:15 AM CDT 02/26/2025 10:31 AM CDT Kath Oswald MD LAB - HEMATOLOGY ORDER JONAS Final Result [address] [address], [place] [phone] * C-REACTIVE PROTEIN (02/26/2025 10:15 AM CDT) [facility] C-Reactive Protein <0.5 <=0.5 mg/dL 02/26/2025 11:41 AM CDT [facility] Blood BLOOD SPECIMEN / Unknown Lab Venipuncture / Unknown 02/26/2025 10:15 AM CDT 02/26/2025 10:32 AM CDT Kath Oswald MD LAB - CHEMISTRY ORDERA BLES Final Result [address] [address], [place] [phone] * COMPREHENSIVE METABOLIC PANEL (02/26/2025 10:15 AM CDT) [facility] BUN 10 7 - 26 mg/dL 02/26/2025 11:47 AM CDT [facility] Creatinine 0.66 0.56 - 0.96 mg/dL 02/26/2025 11:47 AM T [facility] Sodium 138 136 - 145 mmol/L 02/26/2025 11:47 AM T [facility] Potassium 4.0 3.5 - 4.5 mmol/L 02/26/2025 11:47 AM T [facility] Chloride 102 98 - 107 mmol/L 02/26/2025 11:47 AM T [facility] CO2 25 22 - 29 mmol/L 02/26/2025 11:[address] [facility] Glucose 98 70 - 99 mg/dL 02/26/2025 11:47 AM [facility] Calcium 9.3 8.4 - 10.2 mg/dL 02/26/2025 11:47 AM [facility] Protein Total 7.0 6.0 - 8.3 g/dL 02/26/2025 11:47 AM [facility] Albumin 4.7 3.4 - 5.0 g/dL 02/26/2025 11:47 AM [facility] Bilirubin Total 0.3 0.2 - 1.2 mg/dL 02/26/2025 11:47 AM [facility] Alkaline Phosphatase 49 40 - 150 U/L 02/26/2025 11:47 AM [facility] ALT 14 5 - 55 U/L 02/26/2025 11:47 AM [facility] AST 16 5 - 34 U/L 02/26/2025 11:47 AM [facility] Anion Gap 11 6 - 16 02/26/2025 11:47 AM [facility] BUN/Creatinine Ratio 15 7 - 23 02/26/2025 11:47 AM [facility] Osmolality Calculated 285 275 - 295 mOsm/kg 02/26/2025 11:47 AM [facility] Albumin/Globulin Ratio 2.0 1.1 - 2.3 02/26/2025 11:47 AM [facility] eGFR by CKD-EPI >90 >=90 mL/min/1.7 3 m2 02/26/2025 11:47 AM [facility] Comment:Estimated Glomerular Filtration Rate (eGFR) calculated using the CKD-EPI Creatinine Equation (2020), per the National Kid[employer] and [place] [employer] recommendations. Blood BLOOD SPECIMEN / Unknown Lab Venipuncture / Unknown 02/26/2025 10:15 AM CDT 02/26/2025 10:32 AM [facility] us Kath Oswald MD LAB - CHEMISTRY ORDERA BLES Final Result [facility] [address] [place] [address] [phone] * (ABNORMAL) CBC WITH DIFFERENTIAL (02/26/2025 10:15 AM T) [facility] Signature WBC 11.2(H) 4.0 - 10.7 x10E9/L 02/26/2025 10:39 AM [facility] RBC Count 4.98 3.90 - 5.20 x10E12/L 02/26/2025 10:39 AM [facility] Hemoglobin 15.1 11.9 - 15.8 g/dL 02/26/2025 10:39 AM [facility] Hematocrit 44.5 34.8 - 46.1 % 02/26/2025 10:39 AM [facility] MCV 89.4 80.0 - 98.0 fL 02/26/2025 10:39 AM [facility] MCH 30.3 26.7 - 33.6 pg 02/26/2025 10:39 AM [facility] MCHC 33.9 31.7 - 36.3 g/dL 02/26/2025 10:39 AM [facility] RDW-CV 12.1 11.3 - 14.8 % 02/26/2025 10:39 AM [facility] Platelet Count 323 150 - 420 x10E9/L 02/26/2025 10:39 AM [facility] MPV 10.1 7.8 - 11.4 fL 02/26/2025 10:39 AM [facility] Neutrophil % 71.0 41.0 - 74.0 % 02/26/2025 10:39 AM [facility] Lymphocyte % 19.1 17.0 - 47.0 % 02/26/2025 10:39 AM [facility] Monocyte % 5.2 3.0 - 11.0 % 02/26/2025 10:39 AM [facility] Eosinophil % 2.6 0.0 - 7.0 % 02/26/2025 10:39 AM [facility] Basophil % 0.9 0.0 - 1.6 % 02/26/2025 10:39 AM [facility] Immature Granulocytes % 1.2(H) 0.0 - 1.0 % 02/26/2025 10:39 AM [facility] Neutrophil Absolute 7.97(H) 1.60 - 7.50 x10E9/L 02/26/2025 10:39 AM [facility] Lymphocyte Absolute 2.14 1.00 - 4.40 x10E9/L 02/26/2025 10:39 AM [facility] Monocyte Absolute 0.58 0.15 - 1.00 x10E9/L 02/26/2025 10:39 AM [facility] Eosinophil Absolute 0.29 0.00 - 0.60 x10E9/L 02/26/2025 10:39 AM [facility] Basophil Absolute 0.10 0.00 - 0.13 x10E9/L 02/26/2025 10:39 AM [facility] Blood BLOOD SPECIMEN / Unknown Lab Venipuncture / Unknown 02/26/2025 10:15 AM CDT 02/26/2025 10:31 AM T us Kath Oswald MD LAB - HEMATOLOGY ORDER JONAS Final Result [facility] [address] [place] [address], [facility] [phone] documented in this encounter Visit Diagnoses Diagnosis Polyarthralgia- Primary Pain in joint, multiple sites Chronic fatigue Other malaise and fatigue documented in this encounter Care Teams Fitting Room Operator Relationship Specialty Start Date End Date Nyasia Arauz MD [address] [place] [id number] PCP - General Family Medicine 01/24/24 documented as of this encounter
--- NOTE | ~2025-02-27 | XR_ITS ---
XR cervical spine 4-5V Indication: M50.10 - Cervical disc disorder with radiculopathy, unspe... Comparison: None Findings: No fracture, no subluxation flexion and extension. Moderate loss of disc height C4-5 C5-6. Soft tissues unremarkable Impression: No acute abnormality. Reviewed, dictated and finalized at location A. Impression: No acute abnormality.
--- OUTSIDE RECORDS SUMMARY | 2025-02-27 12:25 | XMS_ITS | Clinical Summary ---
Author Organization [facility] Address [address] [place] [address] Care Team Providers Care Marble Supervisor Name Role Phone Nyasia Arauz MD Primary Care Provider [phone] Source Comments [facility],non-owned Affiliates and Associated Physician Practices is amultiple site organization consisting of ambulatory clinics and hospital sitesin [place], [place], [place] and [place]. This disclosure is being madepursuant to the Care Everywhere program and may not contain all information available regarding this patient. Last updated 18.[facility] Allergies Active Allergy Reactions Criticality Noted Date Comments Acetaminophen Other Low 01/16/2025 STATES SHE AVOIDS TYLENOL R/T TO FATTY LIVER Zolpidem Psychiatric 10/01/2013 Codeine Nausea and/or Vomiting 10/01/2013 Hydrocodone Nausea and/or Vomiting 10/30/2013 Medications * Be aware that medications may not be up to date on this document. Alwaysverify current medications with the patient. cetirizine (ZYRTEC) 10 MG tablet Take 1 (one) tablet by mouth once daily 04/22/20 20 Active fluticasone propionate (FLONASE) 50 MCG/ACT nasal spray 11/27/19 21 Active ondansetron, disintegrating , (ZOFRAN ODT) 4 MG tablet 02/18/20 21 Active clobetasol (Temovate) 0.05 % creamIndicatio ns:Psoriasis Apply to affected areas of skin two times per day as needed to arms and legs for psoriasis 60 g 1 01/24/20 24 Active Additional Information Patient not taking.Reported on 02/26/2025 clobetasol (Temovate) 0.05 % solutionIndica tions:Psoriasi s Apply to affected areas of skin two times per day as needed to scalp for psoriasis 50 mL 1 01/24/20 24 Active Additional Information Patient not taking.Reported on 02/26/2025 Qulipta 30 MG TABS Active busPIRone (Buspar) 30 MG tablet Take 1 (one) tablet by mouth 2 times daily Active baclofen (Lioresal) 10 MG tablet Take 0.5 (one-half) tablet by mouth 2 times daily Active estradiol (Estrace) 0.5 MG tablet Take 1 (one) Half Tablet by mouth once daily Active losartan (Cozaar) 50 MG tablet .COMPLEX 05/27/20 24 Active Caplyta 42 MG capsule Active meclizine (Antivert) 25 MG tablet TWICE A DAY as needed for dizziness 12/20/19 25 Active metoprolol tartrate IR (Lopressor) 25 MG tablet Take 1 (one) tablet by mouth once daily 09/04/19 25 Active OXcarbazepine (Trileptal) 300 MG tablet Take 1 (one) tablet by mouth 2 times daily Active risperiDONE (RisperDAL) 0.25 MG tablet Take 1 (one) tablet by mouth once daily Activ e naproxen (Naprosyn) 500 MG tablet Take 1 (one) tablet by mouth 2 times daily 180 tablet 02/27/20 25 Active lansoprazole (PREVACID) 30 MG capsule Take 30 mg by mouth 2 times daily,before breakfast and supper. 025 Discontin ued(List Clean-Up) brexpiprazole (REXULTI) 1 MG tablet Take 3 mg by mouth at bedtime 025 Discontin ued(List Clean-Up) clonazePAM (KLONOPIN) 0.5 MG tablet Take 1 (one) tablet by mouth as needed 06/11/20 19 025 Discontin ued(List Clean-Up) gabapentin (NEURONTIN) 300 MG capsule Take 300 mg by mouth once daily 025 Discontin ued(List Clean-Up) rOPINIRole (REQUIP) 0.5 MG tablet Take 0.5 mg by mouth once daily 025 Discontin ued(List Clean-Up) erenumab-aooe (AIMOVIG) 70 MG/ML auto injector pen Inject 70 mg subcutaneously 04/08/20 21 025 Discontin ued(List Clean-Up) ibuprofen (MOTRIN) 800 MG tablet ibuprofen 800 mg tablet TAKE 1 TABLET BY MOUTH EVERY 8 HOURS 025 Discontin ued(List Clean-Up) lithium carbonate (ESKALITH) 600 MG capsule 10/12/19 22 025 Discontin ued(List Clean-Up) cyclobenzaprin e (FLEXERIL) 10 MG tablet cyclobenzaprine 10 mg tablet 025 Discontin ued(List Clean-Up) pantoprazole EC (PROTONIX) 40 MG tablet pantoprazole 40 mg tablet,delayed release TAKE 1 TABLET BY MOUTH ONCE DAILY 025 Discontin ued(List Clean-Up) carvedilol (Coreg) 12.5 MG tablet 01/09/20 24 025 Discontin ued(List Clean-Up) OXcarbazepine (Trileptal) 150 MG tablet 08/22/19 24 025 Discontin ued(List Clean-Up) Atogepant (Qulipta) 10 MG TABS 025 Discontin ued(List Clean-Up) atomoxetine (Strattera) 10 MG capsule Take by mouth every morning 025 Discontin ued(List Clean-Up) Active Problems Patient Care Coordination No te [...] recommendation. I will refer her to Ms. Marksliyahsusanmalissa for consideration of botulinum toxin. Acanthosis nigricans [...] workup Hx of delivery, currently 09/23/2013 09/12/2021 Encounters Date Type Department Care Team Description 02/26/2025 10:09 AM CDT - 02/26/2025 11:59 PM CDT Hospital Encounter [facility] OP DRAW STATION [address] [place] [address] Kath Oswald MD Discharge Disposition: Home or Self Care 02/26/2025 9:47 AM CDT - 02/26/2025 9:48 AM CDT Hospital Encounter [facility] DIAGNOSTIC RAD OP [address] [place] [address] Kath Oswald MD Discharge Disposition: Home or Self Care 02/26/2025 8:30 AM CDT Office Visit [facility] - Rheumatology [address] [place] [phone] Kath Oswald MD Gomez Escalona, Reynaldo A, MD Polyarthralgia (Primary Dx); Chronic fatigue 02/26/2025 Telephone [facility] - Rheumatology [address] [place] [phone] Jasbir Guo MD Med Question 02/26/2025 Travel from Last 3 Months Immunizations Immunization Administration Dates Next Due Covid [...] Pulse 73 02/26/2025 8:15 AM CDT Temperature 36.8 C (98.3 F) 08/13/2021 1:24 PM SPANISH SPEAKING BABYSITTER Respiratory Rate 16 08/13/2021 1:24 PM SPANISH SPEAKING BABYSITTER Oxygen Saturation 98% 02/26/2025 8:15 AM CDT Inhaled Oxygen Concentration - - Weight 75.3 kg (166 lb) 02/26/2025 8:15 AM CDT Height 167.6 cm (5' 6) 02/26/2025 8:15 AM CDT Body Mass Index 26.79 02/26/2025 8:15 AM CDT Plan of Treatment Upcoming Encounters Date Type Department Care Team (Late st Contact Info) Description 04/09/2025 10:00 AM CDT Office Visit [facility] - Rheumatology [address] [place] [address], [place] [address] Jasbir Guo MD [address] [place] [address] [place] [phone] Health Maintenance Due Date Last Done Comments LIPID TESTING 1982 MAMMOGRAM 1982 HIV SCREENING 1997 HEPATITIS B VACCINE (1 of 3 - 19+ 3-dose series) 2001 HPV VACCINE (1 - 3-dose SCDM series) 2009 PNEUMOCOCCAL VACCINE (2 of 2 - PCV) 10/31/2014 10/31/2013 PAP with HPV 12/10/2018 12/10/2013 DTAP/TDAP/TD VACCINES (2 - T d or Tdap) 10/02/2023 10/01/2013 DEPRESSION SCREENING 06/13/2024 COVID-19 VACCINE (2024-2 6 season) 2025 04/06/2021, 03/16/2021, 02/18/2021 INFLUENZA VACCINE (#1) 2025 1, 02/19/2021, 03/19/2020 SCREENING FOR DIABETES 02/27/2028 5, 10/30/2013, 09/24/2013 ZOSTER VACCINE (1 of 2) 2032 HEPATITIS C SCREENING Completed 02/26/2025 , 07/01/2014, 09/24/2013 HIB VACCINE Aged Out No longer [...] Safety General On track( 022 1:56 PM SPANISH SPEAKING BABYSITTER) Keyonna Loo RN Note: Expected end date: ongoing Interventions: Be aware of medications that could predispose you to falling Wear glasses/hearing aid Keep personal items within easy reach Medication Management General On track( 022 1:56 PM SPANISH SPEAKING BABYSITTER) Keyonna Loo RN Note: Expected end date: [...] Procedure Name Priority Date/Time Associated Diagnosis Comments CK BLOOD Routine 02/26/2025 10:15 AM CDT Polyarthralgia Chronic fatigue RHEUMATOID FACTOR BLOOD QUANTITATIVE Routine 02/26/2025 10:15 AM CDT Polyarthralgia Chronic fatigue CYCLIC CITRULLINATED PEPTIDE(CCP) AB IGG Routine 02/26/2025 10:15 AM CDT Polyarthralgia Chronic fatigue HEPATITIS B SURFACE ANTIBODY QUANT Routine 02/26/2025 [...] 10 :15 AM CDT Polyarthralgia Chronic fatigue COMPREHENSIVE METABOLIC PANEL Routine 02/26/2025 10:15 AM CDT Polyarthralgia Chronic fatigue CBC W AUTO DIFFERENTIAL Routine 02/26/2025 10:15 AM CDT Polyarthralgia Chronic fatigue XR FOOT RIGHT 3VW OR MORE Routine 02/26/2025 10:02 AM CDT Polyarthralgia Chronic fatigue XR FOOT LEFT 3VW OR MORE Routine 02/26/2025 10:02 AM CDT Polyarthralgia Chronic fatigue XR WRIST RIGHT 2VW Routine 02/26/2025 10 :02 AM CDT Polyarthralgia Chronic fatigue XR WRIST LEFT 2VW Routine 02/26/2025 10: 02 AM CDT Polyarthralgia Chronic fatigue XR HIP RIGHT 2VW OR MORE Routine 02/26/2025 10:02 AM CDT Polyarthralgia Chronic fatigue XR HIP LEFT 2VW OR MORE Routine 02/26/2025 10:02 AM CDT Polyarthralgia Chronic fatigue XR SI JOINTS 3VW OR MORE Routine 02/26/2025 10:02 AM CDT Polyarthralgia Chronic fatigue XR HAND RIGHT 3VW OR MORE Routine 02/26/2025 10:02 AM CDT Polyarthralgia Chronic fatigue XR HAND LEFT 3VW OR MORE Routine 02/26/2025 10:02 AM CDT Polyarthralgia Chronic fatigue HPV DNA PROBE HI RISK + LOW RISK PANEL Routine 12/10/2013 3:16 PM CDT Supervision of other high-risk , unspecified trimester from Last 3 Months or Most Recently Relevant to Health Maintenance Results * (ABNORMAL) HEPATITIS B SURFACE ANTIBODY QUANT (02/26/2025 10:15 AM CDT) Hepatitis B Virus Surface Antibody Reactive( A) Non-react [place] 02/26/2025 11:48 AM CDT [facility] Comment: > 12 mIU/mL Hepatitis B surface Antibody (HBsAb). Reactive for HBsAb - individual is considered immune to Hepatitis B Virus infection. Hepatitis B Surface Antibody Quantitative 28.7(H) <8.0 mIU/mL 02/26/2025 11:48 AM CDT [facility] Comment: Hepatitis B Surface Antibody Numeric Result Interpretation: Nonreactive: <8.0 mIU/mL Indeterminate: 8.0 - 12.0 mIU/mL Reactive: >12.0 mIU/mL Blood BLOOD SPECIMEN / Unknown Lab Venipuncture / Unknown 02/26/2025 10:15 AM CDT 02/26/2025 10:24 AM CDT Narrative [facility] - 02/26/2025 11:48 AM CDT This assay should not be used for blood, plasma, or tissue donor screening. This assay is not recommended for neonates born to HBV-infected or suspected HBV-infected mothers. us Kath Oswald MD LAB - SEROLOGY ORDERAB LES Final Result Performing Organization Address City/[facility]/ZIP Co de Phone Number [address] [address], [facility] [phone] * RHEUMATOID FACTOR BLOOD QUANTITATIVE (02/26/2025 10:15 AM CDT) Rheumatoid Factor <15 <30 IU/mL 02/26/2025 11:48 AM CDT [facility] Rheumatoid Factor Screen Negative Negative 02/26/2025 11:48 AM CDT [facility] Blood BLOOD SPECIMEN / Unknown Lab Venipuncture / Unknown 02/26/2025 10:15 AM CDT 02/26/2025 10:24 AM CDT us Kath Oswald MD LAB - CHEMISTRY ORDERA BLES Final Result [address] [address], [place] [phone] * C-REACTIVE PROTEIN (02/26/2025 10:15 AM CDT) C-Reactive Protein <0.5 <=0.5 mg/dL 02/26/2025 11:41 AM CDT [facility] Blood BLOOD SPECIMEN / Unknown Lab Venipuncture / Unknown 02/26/2025 10:15 AM CDT 02/26/2025 10:32 AM CDT us Kath Oswald MD LAB - CHEMISTRY ORDERA BLES Final Result [address] [address], [place] [phone] * CYCLIC CITRULLINATED PEPTIDE(CCP) AB IGG (02/26/2025 10:15 AM CDT) Pathologist [facility] CCP Antibody IgG <0.5 <5.0 U/mL 02/26/2025 11:48 AM CDT [facility] Blood BLOOD SPECIMEN / Unknown Lab Venipuncture / Unknown 02/26/2025 10:15 AM CDT 02/26/2025 10:24 AM CDT us Kath Oswald MD LAB - CHEMISTRY ORDERA BLES Final Result Performing Organization Address City/[facility]/ZIP Co de Phone Number [address] [address], [place] [phone] * ERYTHROCYTE SEDIMENTATION RATE (02/26/2025 10:15 AM CDT) [facility] Erythrocyte Sedimentation Rate Westergren 6 0 - 20 MM/HR 02/26/2025 10:52 AM CDT [facility] Blood BLOOD SPECIMEN / Unknown Lab Venipuncture / Unknown 02/26/2025 10:15 AM CDT 02/26/2025 10:31 AM CDT us Kath Oswald MD LAB - HEMATOLOGY ORDER JONAS Final Result [address] [address], [place] [phone] * (ABNORMAL) CBC WITH DIFFERENTIAL (02/26/2025 10:15 AM CDT) [facility] WBC 11.2(H) 4.0 - 10.7 x10E9/L 02/26/2025 10:39 AM [facility] RBC Count 4.98 3.90 - 5.20 x10E12/L 02/26/2025 10:39 AM [facility] Hemoglobin 15.1 11.9 - 15.8 g/dL 02/26/2025 10:39 AM [facility] Hematocrit 44.5 34.8 - 46.1 % 02/26/2025 10:39 AM [facility] MCV 89.4 80.0 - 98.0 fL 02/26/2025 10:39 AM [facility] MCH 30.3 26.7 - 33.6 pg 02/26/2025 10:39 AM [facility] MCHC 33.9 31.7 - 36.3 g/dL 02/26/2025 10:39 AM [facility] RDW-CV 12.1 11.3 - 14.8 % 02/26/2025 10:39 AM [facility] Platelet Count 323 150 - 420 x10E9/L 02/26/2025 10:39 AM [facility] MPV 10.1 7.8 - 11.4 fL 02/26/2025 10:39 AM [facility] Neutrophil % 71.0 41.0 - 74.0 % 02/26/2025 10:39 AM [facility] Lymphocyte % 19.1 17.0 - 47.0 % 02/26/2025 10:39 AM [facility] Monocyte % 5.2 3.0 - 11.0 % 02/26/2025 10:39 AM [facility] Eosinophil % 2.6 0.0 - 7.0 % 02/26/2025 10:39 AM [facility] Basophil % 0.9 0.0 - 1.6 % 02/26/2025 10:39 AM [facility] Immature Granulocytes % 1.2(H) 0.0 - 1.0 % 02/26/2025 10:39 AM [facility] Neutrophil Absolute 7.97(H) 1.60 - 7.50 x10E9/L 02/26/2025 10:39 AM [facility] Lymphocyte Absolute 2.14 1.00 - 4.40 x10E9/L 02/26/2025 10:39 AM [facility] Monocyte Absolute 0.58 0.15 - 1.00 x10E9/L 02/26/2025 10:39 AM [facility] Eosinophil Absolute 0.29 0.00 - 0.60 x10E9/L 02/26/2025 10:39 AM [facility] Basophil Absolute 0.10 0.00 - 0.13 x10E9/L 02/26/2025 10:39 AM [facility] Blood BLOOD SPECIMEN / Unknown Lab Venipuncture / Unknown 02/26/2025 10:15 AM T 02/26/2025 10:31 AM T us Kath Oswald MD LAB - HEMATOLOGY ORDER JONAS Final Result [facility] [address] [place] [address], [facility] [phone] * COMPREHENSIVE METABOLIC PANEL (02/26/2025 10:15 AM [facility]) BUN 10 7 - 26 mg/dL 02/26/2025 11:47 AM [facility] Creatinine 0.66 0.56 - 0.96 mg/dL 02/26/2025 11:47 AM [facility] Sodium 138 136 - 145 mmol/L 02/26/2025 11:47 AM [facility] Potassium 4.0 3.5 - 4.5 mmol/L 02/26/2025 11:47 AM [facility] Chloride 102 98 - 107 mmol/L 02/26/2025 11:47 AM [facility] CO2 25 22 - 29 mmol/L 02/26/2025 11:47 AM [facility] Glucose 98 70 - 99 mg/dL 02/26/2025 11:47 AM [facility] Calcium 9.3 8.4 - 10.2 mg/dL 02/26/2025 11:47 AM [facility] Protein Total 7.0 6.0 - 8.3 g/dL 02/26/2025 11:47 AM [facility] Albumin 4.7 3.4 - 5.0 g/dL 02/26/2025 11:47 AM [facility] Bilirubin Total 0.3 0.2 - 1.2 mg/dL 02/26/2025 11:47 AM [facility] Alkaline Phosphatase 49 40 - 150 U/L 02/26/2025 11:47 AM [facility] ALT 14 5 - 55 U/L 02/26/2025 11:47 AM [facility] AST 16 5 - 34 U/L 02/26/2025 11:47 AM [facility] Anion Gap 11 6 - 16 02/26/2025 11:47 AM [facility] BUN/Creatinine Ratio 15 7 - 23 02/26/2025 11:47 AM [facility] Osmolality Calculated 285 275 - 295 mOsm/kg 02/26/2025 11:47 AM [facility] Albumin/Globulin Ratio 2.0 1.1 - 2.3 02/26/2025 11:47 AM [facility] eGFR by CKD-EPI >90 >=90 mL/min/1.7 3 m2 02/26/2025 11:47 AM [facility] Comment:Estimated Glomerular Filtration Rate (eGFR) calculated using the CKD-EPI Creatinine Equation (2020), per the National Kidney Foundation and [place] [employer] Neph[employer] recommendations. Blood BLOOD SPECIMEN / Unknown Lab Venipuncture / Unknown 02/26/2025 10:15 AM CDT 02/26/2025 10:32 AM [facility] us Kath Oswald MD LAB - CHEMISTRY ORDERA BLES Final Result [facility] [address] [place] [phone], [facility] [phone] * HEPATITIS B CORE ANTIBODY TOTAL (02/26/2025 10:15 AM CDT) HBc Antibody Total Non-reacti ve Non-reacti ve 02/26/2025 11:48 AM [facility] Blood BLOOD SPECIMEN / Unknown Lab Venipuncture / Unknown 02/26/2025 10:15 AM CDT 02/26/2025 10:24 AM CDT us Kath Oswald MD LAB - CHEMISTRY ORDERA BLES Final Result [address] [address], [place] [phone] * HEPATITIS B SURFACE ANTIGEN W RFLX CONFIRMATION (02/26/2025 10:15 AM CDT) [facility] Hepatitis B Virus Surface Antigen Non-reacti ve Non-reacti ve 02/26/2025 11:48 AM CDT [facility] Blood BLOOD SPECIMEN / Unknown Lab Venipuncture / Unknown 02/26/2025 10:15 AM CDT 02/26/2025 10:24 AM CDT us Kath Oswald MD LAB - CHEMISTRY ORDERA BLES Final Result [address] [address], [place] [phone] * CK BLOOD (02/26/2025 10:15 AM CDT) [facility] CK Total 124 30 - 200 U/L 02/26/2025 11:36 AM CDT [facility] Blood BLOOD SPECIMEN / Unknown Lab Venipuncture / Unknown 02/26/2025 10:15 AM CDT 02/26/2025 10:32 AM CDT us Kath Oswald MD LAB - CHEMISTRY ORDERA BLES Final Result [address] [address], [place] [phone] * HEPATITIS C ANTIBODY (02/26/2025 10:15 AM CDT) [facility] Hepatitis C Antibody Non-react [place] Non-reac tive 02/26/2025 11:48 AM CDT [facility] Comment:Hepatitis C Antibody screen indicates no [...] LAB - CHEMISTRY ORDERA BLES Final Result [facility] [address] [place] [phone], [facility] [phone] * XR Foot Right 3Vw or More [...] Sam Cates MD on 02/26/2025 10:43 AM us Kath Oswald MD DIAGNOSTIC IMAGING [...] Sam Cates MD on 02/26/2025 10:44 AM us Kath Oswald MD DIAGNOSTIC IMAGING [...] Cates MD on 02/26/2025 10:51 AM Kath Eugene Oswald MD DIAGNOSTIC IMAGING [...] intact. Procedure Note Sam Cates MD - 09/16/2025 PROCEDURE: XR SI JOINTS 3VW OR MORE [...] Sam Cates MD on 02/26/2025 10:42 AM us Kath Oswald MD DIAGNOSTIC IMAGING ORD ERABLES Final Result * HPV DNA PROBE HI RISK + LOW RISK PANEL (12/10/2013 3:16 PM CDT) Human papillomavirus Low Risk Not Performed 12/19/2013 9:14 AM CDT [facility] Human papillomavirus High Risk Negative 12/19/2013 9:14 AM CDT [facility] Pathology/Cytolo gy ENTIRE ENDOCERVIX / Unknown Collection / Unknown 12/10/2013 3:16 PM CDT 12/19/2013 9:01 AM CDT us Shaggy Martell MD LAB - MICROBIOLOGY ORDERABLES Fi nal Result [facility] [address] [place] [address] from Last 3 Months or Most Recently Relevant to Health Maintenance Insurance [facility] Advance Directives * Full Code (Latest Code Status on File) Date Activated Date Inactivated Comments 10/30/2013 8:56 AM 11/03/2013 1:16 PM Care Teams Marble Supervisor Relationship Specialty Start Date End Date Nyasia Arauz MD [address] [place] [address] PCP - General Family Medicine 01/24/24
--- OUTSIDE RECORDS SUMMARY | 2025-02-27 12:25 | XMS_ITS | Encounter Summary ---
Author Organization [facility] Address [address] [place] [address] Care Team Providers Care Electron Beam Operator Name Role Phone Nyasia Arauz MD Primary Care Provider [phone] Reason for Visit * Reason Onset Date Comments Med Question 02/26/2025 Encounter Details Date Type Department Care Team (Late st Contact Info) Description 02/26/2025 Telephone [facility] - Rheumatology [address] [place] [address], [facility] [place] [address] Jasbir Guo MD [address] [place] [phone] Med Question Social History Tobacco Use Types Packs/Day Years [...] of Assessment Author No 10/30/2013 9:01 AM MELISSAT Sahara Golden RN * Is person blind [...] Sahara Golden RN documented in this encounter Miscellaneous Notes * Telephone Encounter - Kita Barrow RN - 02/26/2025 11:22 AM CDT Pharmacy called to ask for one of our doctors that [place] to sign off on a prescription. Pharmacists was informed that our providers [place] no longer be apart of [place] as of 04/12/2025. documented in this encounter Plan of Treatment Upcoming Encounters Date Type Department Care Team (Late st Contact Info) Description 04/09/2025 10:00 AM CDT Office Visit [facility] - Rheumatology [address] [place] [address], [facility] [place] [address] Jasbir Guo MD [address] [place] [phone] documented as of this encounter Goals Goal Patient Goal Type Associated Problems Recent Progress Patient-Stated? Author Safety General On track( 1:56 PM COMPUTATIONAL BIOLOGIST) Keyonna Loo RN Note: Expected end date: ongoing Interventions: Be aware of medications that could predispose you to falling Wear glasses/hearing aid Keep personal items within easy reach Medication Management General On track( 1:56 PM COMPUTATIONAL BIOLOGIST) Keyonna Loo RN Note: Expected end date: [...] or cool documented as of this encounter Visit Diagnoses Not on filedocumented in this encounter Care Teams Electron Beam Operator Relationship Specialty Start Date End Date Nyasia Arauz MD [address] [place] [phone] PCP - General Family Medicine 01/24/24 documented as of this encounter
--- OUTSIDE RECORDS SUMMARY | 2025-02-27 12:26 | XMS_ITS | Clinical Summary ---
Author Organization [facility] Address [address] [place] [address] Care Team Providers Care Summer Intern Name Role Phone Devante Suarez Primary Care Provider [phone] Allergies Active Allergy Reactions Criticality Noted Date [...] Tdap) 10/02/2023 10/01/2013 COVID-19 Vaccine ( - 2024-2 6 season) 2025 04/06/2021, 03/09/2021, 02/18/2021 Pneumococcal Vaccine: Pediatrics (0 [...] complete this topic Insurance [employer] Care Teams Summer Intern Relationship Specialty Start Date End Date Devante Suarez DO [address] [phone] PCP - General FAMILY PRACTICE 12/06/20
--- OUTSIDE RECORDS SUMMARY | 2025-02-27 12:26 | XMS_ITS | Encounter Summary ---
Author Organization [facility] Address [address] [place] [address] Care Team Providers Care Secondary School Teacher Name Role Phone Nyasia Arauz MD Primary Care Provider [phone] Encounter Details Date Type Department Care Team (Latest Contact Info) Description 02/26/2025 Travel Social History Tobacco Use Types Packs/Day Years [...] 9:01 AM MELISSAT Sahara Golden RN * Does person have [...] Entry Date Author No 10/30/2013 9:01 AM MELISSAT Sahara Golden RN documented in this encounter Plan of Treatment Upcoming Encounters Date Type Department Care Team (Late st Contact Info) Description 04/09/2025 10:00 AM CDT Office Visit [facility] - Rheumatology [address] [facility], [place] [phone] Jasbir Guo MD [address] [place] [phone] documented as of this encounter Goals Goal Patient Goal Type Associated Problems Recent Progress Patient-Stated? Author Safety General On track( 1:56 PM SLD EDUCATIONAL AIDE) Keyonna Loo RN Note: Expected end date: ongoing Interventions: Be aware of medications that could predispose you to falling Wear glasses/hearing aid Keep personal items within easy reach Medication Management General On track( 1:56 PM SLD EDUCATIONAL AIDE) Keyonna Loo RN Note: Expected end date: [...] on filedocumented in this encounter Care Teams Secondary School Teacher Relationship Specialty Start Date End Date Nyasia Arauz MD [address] [place] [phone] PCP - General Family Medicine 01/24/24 documented as of this encounter
--- OUTSIDE RECORDS SUMMARY | 2025-02-27 12:26 | XMS_ITS | Clinical Summary ---
Author Organization [facility] Address [address] [place] [address] Care Team Providers Care Planisher Name Role Phone Mendez Pantoja MD Unavailable [phone] Nyasia Arauz MD Primary Care Provider [phone] Allergies Active Allergy Reactions Criticality Noted Date Comments Codeine Nausea only,Nausea A nd Vomiting,Stomach upset,Vomiting Low 08/26/2011 Stomach/GI Upset Hydrocodone Nausea And Vomiting 10/30/2013 Sumatriptan Other (See comments) Low 01/13/2021 weakness Topiramate Blisters High 01/13/2021 Zolpidem Hallucinations,Other (See comments) Medium 08/26/2011 Confusion Medications fluticasone propionate (FLONASE) 50 mcg/actuation nasal spray 1 Active gabapentin (NEURONTIN) 300 mg capsule Take 1 capsule (300 mg total) by mouth 2 (two) times a day 300 mg in the morning and 600 mg at night 1 Active rOPINIRole (REQUIP) 0.5 mg tablet Take 2 tablets (1 mg total) by mouth nightly 1 Active Rexulti 3 mg tablet Take 1 tablet (3 mg total) by mouth daily 1 Active clonazePAM (KlonoPIN) 0.5 mg tablet Take 1 tablet (0.5 mg total) by mouth 2 (two) times a day Active oxyCODONE-acetamin ophen (PERCOCET) 5-325 mg per tablet Take 1 tablet by mouth every 6 (six) hours as needed 3 Active escitalopram (LEXAPRO) 10 mg tablet 3 Active Rexulti 4 mg tablet 3 Active ondansetron (ZOFRAN) 4 mg tablet Take 1 tablet (4 mg total) by mouth every 8 (eight) hours as needed for nausea or vomiting 20 tablet 1 3 Active lumateperone (Caplyta) 42 mg capsule 3 Active OneTouch Verio test strips strip 3 Active OneTouch Verio Flex meter [facility] 3 Active OneTouch Delica Plus Lancet [address] [facility] 3 Active lithium 300 mg tablet/capsule Activ e Strattera 40 mg capsule 60 mg 3 Active rimegepant (NURTEC ODT) tablet,disintegrat ing Take 1 tablet (75 mg total) by mouth daily as needed (migraine) 8 tablet 5 4 Active ondansetron ODT (ZOFRAN-ODT) 8 mg disintegrating tablet Take 1 tablet (8 mg total) by mouth every 12 (twelve) hours as needed for nausea or vomiting 20 tablet 1 4 Active naproxen (NAPROSYN) 375 mg tablet Take 1 tablet (375 mg total) by mouth 2 (two) times a day 4 Active OXcarbazepine (TRILEPTAL) 150 mg tablet 4 Active OXcarbazepine (TRILEPTAL) 300 mg tablet 4 Active traZODone (DESYREL) 50 mg tablet 4 Active Strattera 80 mg capsule 4 Active atomoxetine (STRATTERA) 80 mg capsule 4 Active progesterone (PROMETRIUM) 200 mg capsule TAKE 1 CAPSULE BY MOUTH EVERY DAY AT BEDTIME FOR 90 DAYS 4 Active amLODIPine (NORVASC) 10 mg tablet 4 Active solifenacin (VESIcare) 5 mg tablet Take 1 tablet (5 mg total) by mouth daily Active carvediloL (COREG) 6.25 mg tablet Take 1 tablet (6.25 mg total) by mouth 2 (two) times a day with meals Active ketoconazole (NIZORAL) 2 % cream APPLY TOPICALLY TO THE AFFECTED AREA(S) TWICE DAILY FOR 4 WEEKS OR 1 WEEK AFTER LESIONS HAVE HEALED 4 Active pramipexole (MIRAPEX) 0.125 mg tablet 4 Active amLODIPine (NORVASC) 5 mg tablet 4 Active Strattera 60 mg capsule 4 Active hydrOXYzine (ATARAX) 25 mg tablet 4 Active indomethacin (INDOCIN) 50 mg capsuleIndications :Headache associated with sexual activity Take 1 capsule (50 mg total) by mouth daily 30 capsule 1 4 Active busPIRone (BUSPAR) 15 mg tablet 4 Active losartan (COZAAR) 50 mg tablet 4 Active metoprolol tartrate (LOPRESSOR) 50 mg immediate release tablet Take 1 tablet (50 mg total) by mouth 2 (two) times a day 4 Active Microgestin 1/20, 21, 1-20 mg-mcg per tablet TAKE 1 TABLET BY MOUTH ONCE DAILY IN CONTINUOUS MANNER SKIPPING PLACEBO PILLS 4 Active predniSONE (DELTASONE) 20 mg tablet TAKE 1 TABLET BY MOUTH ONCE DAILY FOR 5 DAYS 4 Active clobetasoL (TEMOVATE) 0.05 % external solution Apply to affected areas of skin two times per day as needed to scalp for psoriasis 4 Active doxepin (SINEquan) 10 mg capsule 4 Active estradioL (CLIMARA) 0.05 mg/24 hr APPLY 1 PATCH TOPICALLY ONCE A WEEK 5 Active baclofen (LIORESAL) 10 mg tablet Take 0.5 tablets (5 mg total) by mouth 2 (two) times a day 30 tablet 5 5 025 Active frovatriptan (FROVA) 2.5 mg tabletIndications: Migraine Take 1 tablet (2.5 mg total) by mouth once as needed for headaches May repeat one time after 2 hours if needed. 9 tablet 5 5 Active atogepant (Qulipta) 60 mg tablet Take 60 mg by mouth daily 30 tablet 5 5 Active Active Problems Problem Noted Date Diagnosed Date Borderline abnormal TFTs 12/04/2024 Headache associated with sexual activity 024 Neck pain 12/07/2023 Leukocytosis 02/21/2023 Primary insomnia 07/22/2022 Assessment & Plan (07/22/2022 1:41 PM BRANCH OPERATIONS COORDINATOR): The problem of recurrent insomnia is [...] sleeping better insomnia as written by the [place] [employer]. I have also ordered a PSG Intractable chronic migraine without aura and without status migrainosus 04/29/2022 Hypersomnia 01/12/2022 Assessment & Plan (07/22/2022 1:39 PM BRANCH OPERATIONS COORDINATOR): Sleep hygiene was discussed Assessment & Plan (01/12/2022 2:16 PM CDT): The patient is going to talk with her primary care physician regarding lab work. Snoring 11/17/2021 Assessment & Plan (07/22/2022 1:39 PM BRANCH OPERATIONS COORDINATOR): Due to worsening symptoms of the [...] Encounters Date Type Department Care Team Description 01/14/2025 10:00 AM CDT Procedure visit [facility] [address] [place] [phone] Ana Bennett NP Intractable chronic migraine without aura and without status migrainosus 12/10/2024 Telephone [facility] [address] [place] [phone] Ana Bennett NP Prior Auth (Qulipta 30MG) 12/07/2024 Results Follow-Up [facility] of [address] [phone] Kacy Britt MD ACTH, Cortisol, Insulin-like growth factor (IGF-1), Additional followed-up results: 5 12/04/2024 12:05 PM CDT Lab [address] [phone] Borderline abnormal TFTs 12/04/2024 11:00 AM CDT Office Visit [facility] [address] [phone] Kacy Britt MD Borderline abnormal TFTs (Primary Dx) 12/04/2024 Telephone [facility] [address] [place] [phone] Ana Bennett NP 12/03/2024 11:00 AM CDT Office Visit [facility] [address] [place] [phone] Ana Bennett NP Intractable chronic migraine without aura and without status migrainosus (Primary Dx); Headache associated with sexual activity; Neck pain from Last 3 Months Immunizations Immunization Administration [...] disorder (HCC) PTSD (post-traumatic stress disorder) Schizophrenia Migraine Anxiety Asthma CHRISTINE (nonalcoholic steatohepatitis) IBS [...] on file Legal Sex Female 8:33 PM BRANCH OPERATIONS COORDINATOR Gender Identity Female 08/06/2021 9:34 AM BRANCH OPERATIONS COORDINATOR Sexual Orientation Straight 08/06/2021 9: 34 AM BRANCH OPERATIONS COORDINATOR Occupation Industry Job Start Date Job End Date on disability Not on file Not on file Not on file Obstetrics History Last Filed Vital Signs Vital Sign Reading Time Taken Comments Blood Pressure 98/60 12/04/2024 11:07 AM CDT Pulse 66 12/04/2024 11:07 AM CDT Temperature 36.8 C (98.3 F) 04/11/2024 1:22 PM CDT Respiratory Rate 18 12/04/2024 11:07 AM CDT Oxygen Saturation 100% 12/03/2024 10:48 AM CDT Inhaled Oxygen Concentration - - Weight 73.3 kg (161 lb 9.6 oz) 12/04/2024 11:07 AM CDT Height 167.6 cm (5' 6) 12/04/2024 11:07 AM CDT Body Mass Index 26.08 12/04/2024 11:07 AM CDT Plan of Treatment Health Maintenance Due Date Last Done Comments Breast Cancer Screening-Mammogram 1982 Cervical Cancer Screening 1982 Depression Screening 1982 Hepatitis C Screening 1982 Varicella Vaccines (1 of 2 - 13+ 2-dose series) 08/18/1995 Regular Well Visit/Exam 18-64 2000 HPV Vaccines (1 - 3-dose SCDM series) 2009 Pneumococcal vaccine <65 (2 of 2 - PCV) 10/31/2014 0 10/31/2013 DTaP/Tdap/Td Vaccine (2 - Td or Tdap) 10/02/2023 Covid-19 Vaccine ( - season) 2025, 03/09/2021 Influenza Vaccine (#1) 2025 02/19/2021, 2019 Procedures Procedure Name Priority Date/Time Associated Diagnosis Comments BOTOX INJECTION Routine 01/14/2025 10:00 AM CDT Intractable chronic migraine without aura and without status migrainosus T3, FREE Routine 12/04/2024 12:05 PM CDT Borderline abnormal TFTs THYROID PEROXIDASE ANTIBODY Routine 12/04/2024 12:05 PM CDT Borderline abnormal TFTs T4, FREE Routine 12/04/2024 12:05 PM CDT Borderline abnormal TFTs TSH Routine 12/04/2024 12:05 PM CDT Borderline abnormal TFTs PROLACTIN Routine 12/04/2024 12:05 PM CDT Borderline abnormal TFTs INSULIN-LIKE GROWTH FACTOR Routine 12/04/2024 12:05 PM CDT Borderline abnormal TFTs CORTISOL Routine 12/04/2024 12:05 PM CDT Borderline abnormal TFTs ACTH Routine 12/04/2024 12:05 PM CDT Borderline abnormal TFTs from Last 3 Months Results * Botox Injection (01/14/2025 10:00 AM CDT) Narrative Za Pires - 01/14/2025 10:00 AM CDT aZ Pires 01/17/2025 9:49 AM Botox Injection Performed by: Ana Bennett NP Authorized by: Ana Bennett NP Guinda Protocol: Consent Given by: Patient Timeout: prior to procedure the correct patient, procedure, and site was verified Procedure Details - Botox Injection: Procedure Details: See Botox flow sheet for details on injection sites and amounts. This can be found in Media and labeled BLVLE [email or web address] NOTES. Procedure Note Za Pires - 01/14/2025 10:00 AM CDT Botox Injection Performed by: Ana Bennett NP Authorized by: Ana Bennett NP Guinda Protocol: Consent Given by: Patient Timeout: prior to procedure the correct patient, procedure, and site wasverified Procedure Details - Botox Injection: Procedure Details: See Botox flow sheet for details on injection sitesand amounts. This can be found in Media and labeled [email or web address] NOTES. Ana Bennett NP IN CLINIC/BEDSIDE ORDERABLES Final Result * Thyroid peroxidase antibody (TPO) (12/04/2024 12:05 PM CDT) Anti Thyroid Peroxidase <30 <=34 IUnits/mL Comment: ATPO Interpretive Data Results may be up to 28% higher in patients receiving Itraconazole. Current interpretive data was last revised 2020. Testing performed by: [facility], [address] [facility] [place] [address] Blood 12/04/2024 12:0 5 PM CDT 12/05/2024 9:50 AM CDT us Kacy Britt MD LAB BLOOD ORDERABLES Final Resul t Performing Organization Address [facility] Co de Phone Number ONOFRE RANDHAWA [address] [place] [address] * Prolactin (12/04/2024 12:05 PM CDT) Prolactin 13.9 4.8 - 23.3 ng/mL Blood 12/04/2024 12:0 5 PM CDT 12/04/2024 4:18 PM CDT us Kacy Britt MD LAB BLOOD ORDERABLES Final Resul t Performing Organization Address [facility] de Phone Number ONOFRE RANDHAWA [address] [place] [address] * Insulin-like growth factor (IGF-1) (12/04/2024 12:05 PM CDT) Insulin-like growth factor 1 (IGF-1) 168 50 - 250 ng/mL Comment: Interpretive Data Fan Stage Male Female I 80-250 80-320 II 100-450 120-450 III 250-500 250-550 IV 225-600 225-600 V 225-500 180-500 Assay calibrated to WHO and instituted at [facility] 10/2017. References: 1. [employer] IGF-1 Package Insert 2017-03, V 1.0. 2. [employer]EE[employer]y IGFMS entry ([email or web address].[email or web address]-catalog/Overview/18259) accessed 10-19-2017. 3. Enio Ramirez, Mercedes N, Adia RT et al. J Clin Endocrinol Metab 2014;99:8076-9269. Current interpretive data was last revised on 2017. Testing performed by: [facility] [place]., [address] Blood 12/04/2024 12:0 5 PM CDT 12/05/2024 9:55 AM CDT Kacy Britt MD LAB BLOOD ORDERABLES Final Resul t Performing Organization Address [facility] Co de Phone Number ONOFRE RANDHAWA [address] [place] [address] * ACTH (12/04/2024 12:05 PM CDT) ACTH 26.3 7.0 - 63.0 pg/mL Comment:Testing performed by : [facility], [address] [place]., [address] Blood 12/04/2024 12:0 5 PM CDT 12/05/2024 2:43 PM CDT Kacy Britt MD LAB BLOOD ORDERABLES Final Resul t Performing Organization Address [facility] Co de Phone Number ARGENISDIO [address] [place] [address] * T3, free (12/04/2024 12:05 PM CDT) Free T3 2.7 2.0 - 4.4 pg/mL Blood 12/04/2024 12:0 5 PM CDT 12/04/2024 4:18 PM CDT Kacy Britt MD LAB BLOOD ORDERABLES Final Resul t Performing Organization Address [facility] Co de Phone Number ONOFRE [address] [place] [address] * TSH (12/04/2024 12:05 PM CDT) Thyroid Stimulating Hormone 0.64 0.30 - 4.20 mcIUnit/mL Blood 12/04/2024 12:0 5 PM CDT 12/04/2024 4:18 PM CDT Kacy Britt MD LAB BLOOD ORDERABLES Final Resul t Performing Organization Address [facility] Co de Phone Number ONOFRE RANDHAWA [address] [place], [place] [id number] * (ABNORMAL) T4, free (12/04/2024 12:05 PM CDT) Free T4 0.81(L) 0.90 - 1.70 ng/dL Blood 12/04/2024 12:0 5 PM CDT 12/04/2024 4:18 PM CDT Kacy Britt MD LAB BLOOD ORDERABLES Final Resul t Performing Organization Address [facility] de Phone Number ONOFRE RANDHAWA [address] [place] [address] * Cortisol (12/04/2024 12:05 PM CDT) Cortisol 10.2 4.8 - 19.5 mcg/dl Comment: Interpretive Data Normal Range: 4.8 - 19.5 mcg/dL; Evening: Half of morning value. This analyte undergoes marked diurnal variation. Ranges indicated apply to morning specimens. Current interpretive data was last revised 2018. Blood 12/04/2024 12:0 5 PM CDT 12/04/2024 4:18 PM CDT Kacy Britt MD LAB BLOOD ORDERABLES Final Resul t Performing Organization Address [facility] Co de Phone Number ONOFRE RANDHAWA [address] [place] [address] from Last 3 Months Insurance [facility] Care Teams Planisher Relationship Specialty Start Date End Date Nyasia Arauz MD PCP - General Family Medicine 02/07/24 Mendez Pantoja MD Medical Oncologist/[facility] Hematology and Oncology 02/10/23
== END 2025-02-27 12:17 | disposition home or self-care (01) ==
PROVIDERS: PCP Family Medicine; Visit Provider Neurological Surgery
DX: M50.10 Cervical disc disorder with radiculopathy, unspecified cervical region (principal)
CPT/HCPCS: 72050